=== PATIENT | male | born 1960 | race Caucasian/White ===

== ENCOUNTER 2022-07-19 22:43 | Emergency (ER) | payer MEDICARE, MEDICAID, SELFPAY ==
[2022-07-19 23:14] VITALS: BP 179/89; PULSE 91; RESP 18; TEMP 36.7; O2SAT 99; BMI 23.4
--- NOTE | 2022-07-20 00:33 | ED_ITS ---
HPI - General Adult General Time Seen by Provider: 00:10 Date Seen: 07/20/22 Chief complaint: Unspecified Complaint, Adult Stated complaint: lost feeling in rt foot, ears and nose congestion Time Seen by Provider: 07/19/22 23:16 Source: patient, RN notes reviewed and old records reviewed Mode of arrival: ambulatory Limitations: no limitations History of Present Illness HPI narrative: Mr. Soares is a very pleasant 61-year-old gentleman with unfortunate history of left leg and foot trauma in 2015, chronic neck pain with cervical fusion who comes to the emergency room for evaluation regarding both chronic nasal congestion and worsening of right foot and lower leg numbness. In regards to the lower leg numbness patient states that after his accident in 2014 in which he had multiple surgeries on his left foot he experienced a disc herniation sciatica that cause numbness on the back of his right calf into the bottom of his foot. He states that he was treated with steroids in although he got better he never got back to normal. Over the past couple days he has noticed that the numbness seems to be worse. He does not endorse tripping but states that driving he feels like maybe he does not have as much strength. He also has had increased low back pain. He cannot recall any specific injury recently. He states that he does have a history of cervical spine surgery and fusion. He notes that he did see a surgeon in regards to his low back and it was suggested that possibly fusion would be helpful but was told that it would be multiple levels and thus he wanted to avoid that. He denies loss of bowel or bladder control, any fever, the onset of any new symptoms. He states that this is simply what he experienced before. Patient also notes that he has some redness around his scar on the left foot where he had surgery within the last year. This was done by a physician at [facility]. He states that he had 2 broken bones that were r emoved and that there are some areas of the foot that cannot be operated on. He is worried that he may have an infection here. Patient notes he has also been with chronic congestion over the past 16 months. He states that he is on Sudafed in that help somewhat. He notes that he has ear pain but blames this on TMJ. He states that since he has had dentures he grinds his teeth now. Denies a sore throat. He also notes a growth in his right naris. He is due to see ENT on August 11. He states that he keeps picking at hoping it will go away. He is a chronic smoker. Related Data Previous Rx's Medication Instructions Recorded methylprednisolone 4 mg tablets in See Rx Instructions PO .COMPLEX 07/20/22 a dose pack (Medrol (Andrea)) #21 ea Allergies Allergy/AdvReac Type Severity Reaction Status Date / Time No Known Drug Allergies Allergy Verified 07/19/22 23:16 Review of Systems Status of ROS: Reports: 6 or more systems reviewed and unremarkable except as noted in History and below Const: Denies: fever or chills Eyes: Denies: change in vision ENMT: Reports: neck pain (Chronic); Denies: throat pain, difficulty swallowing or hoarseness Cardio: Reports: swelling of feet/ankles (Chronic on the left); Denies: chest pain or shortness of breath with exertion Resp: Denies: shortness of breath GI: Denies: abdominal pain, vomiting or difficulty swallowing : Reports: other (Denies loss of bowel control) Musculo: Reports: neck pain (Chronic) Neuro: Reports: numbness in extremities and weakness in extremities Exam Narrative: Exam Narrative: According to notes: Surgery in 2004 cervical fusion. 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 Very pleasant gentleman. Somewhat disheveled appearance. Eyes are clear. TMs bilaterally without erythema or fluid. Left Henning within normal limits. Right naris shows what appears to be some overgrowth on the 2nd turban it. No erythema at this time. No bleeding at this time. Rather nodular in appearance. Oral cavity with moist mucous membranes. Neck is supple. Palpation of lumbar spine shows no tenderness. There is tenderness in the right sciatic notch. Patient has some wasting of the right anterior thigh. He has decreased sensation along the posterior aspect of the lower calf. Achilles is intact. He has decreased sensation on the bottom of his foot. He is able to dorsiflex and plantar flex both at the ankle and of the great toe against resistance. He is unable to stand on his tip toes secondary to the surgery on his left foot. DTRs are 1/2+ at the knee and 1+ at the ankle on the right. Patient is observed sitting standing without difficulty. He is mentating normally. Upper extremity movement strength appears to be intact. Patient does request that I look at his left foot. He has a healed scar over the left great MTP that does not appear to be unusual. His left great toe is somewhat shiny and there is absent great nail but there is no erythema or drainage. The bottom of the foot shows no evidence of drainage open wound or erythema. Documenting provider has reviewed patient's vital signs: yes Course Vital Signs Vital signs: Initial Vital Signs Temperature 98.0 F 07/19/22 23:14 Temperature Source Temporal Artery Scan 07/19/22 23:14 Pulse Rate 91 07/19/22 23:14 Respiratory Rate 18 07/19/22 23:14 Blood Pressure 179/89 H 07/19/22 23:14 Blood Pressure Mean 119 07/19/22 23:14 Blood Pressure Position Sitting 07/19/22 23:14 Pulse Oximetry 99 07/19/22 23:14 Oxygen Delivery Method 07/19/22 23:14 Vital Signs Temperature 98.0 F 07/19/22 23:14 Pulse Rate 91 07/19/22 23:14 Respiratory Rate 18 07/19/22 23:14 Blood Pressure 179/89 H 07/19/22 23:14 Pulse Oximetry 99 07/19/22 23:14 Oxygen Delivery Method 07/19/22 23:14 Temperature 98.0 F 07/19/22 23:14 Pulse Rate 91 07/19/22 23:14 Respiratory Rate 18 07/19/22 23:14 Blood Pressure 179/89 H 07/19/22 23:14 Pulse Oximetry 99 07/19/22 23:14 Oxygen Delivery Method 07/19/22 23:14 Medical Decision Making MDM Narrative Medical decision making narrative: 1. L5/S1 radiculopathy-patient has what appears to be chronic sensation loss and some wasting of the right lower extremity musculature. At this time still maintaining dorsiflexion plantar flexion and not exhibiting any red flag symptoms. Patient is requesting steroids. I did speak about using prednisone but he notes that he is use the Medrol Dosepak in the past with success. 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 I would ask however that he follow-up with his primary provider JUN Tompkins for recheck. If he does not have improvement of his symptoms or has worsening symptoms he will likely need advanced imaging. As his foot surgery with hardware is less than a year old, I do not know if he is a candidate for MRI but defer to his primary provider. 2. Nasal growth-I have asked patient to do his best not to pick at this area as to alter the appearance. He does have ENT appointment on August 11 which I encouraged him to keep. 3. Left foot surgery-I do not note any erythema that is unusual around the surgical wounds left foot. I would continue to monitor. He does have some shiny mildly pink appearance of the left great toe. It appears that his nail has been removed. It does not appear to be infected. It is not unusually warm to the touch for exhibiting any drainage. Continue to monitor and seek medical attention if this would change. 4. Disposition-patient is discharged home. Return as needed for worsening symptoms. Medical Records Medical records reviewed: Yes I reviewed the patient's medical records Discharge Plan Discharge Clinical Impression: Radiculopathy, Chronic nasal congestion Patient Disposition: Home, Self-Care Condition: Unchanged Additional Instructions: For foot and leg numbness: start Medrol dose pack - sent to your pharmacy Tylenol as needed for discomfort while using the steroid take with food For nasal growth - do your best to avoid picking at the growth. Keep your ENT appointment Follow up with JUN Tompkins as you may need a CT or MRI of your ow back if not improving or you are getting worse. Prescriptions: New methylprednisolone [Medrol (Andrea)] 4 mg tablets,dose pack See Rx Instructions .ROUTE .COMPLEX Qty: 21 0RF Rx Instructions: orally per package directions Follow Up/Referrals: Rhett Tompkins PA-C [Primary Care Provider] - Stand Alone Forms: [employer] Info Instructions
[2022-07-20] MEDS: predniSONE 20 MG TABLET 60 MG PO (01:15)
[2022-07-20 01:20] VITALS: BP 165/78; PULSE 89; RESP 18; TEMP 36.7; O2SAT 99
== END 2022-07-20 01:20 | disposition home or self-care (01) ==
PROVIDERS: Emergency Provider Family Medicine; PCP Physician Assistant
DX: M54.17 Radiculopathy, lumbosacral region (principal); R09.81 Nasal congestion
CPT/HCPCS: 99283; J7512

== ENCOUNTER 2024-01-28 20:40 | Emergency (ER) | payer MEDICARE, SELFPAY ==
[2024-01-28 21:04] VITALS: BP 159/88; PULSE 81; RESP 16; TEMP 36.2; O2SAT 95; BMI 22.3
--- NOTE | 2024-01-28 22:01 | ED_ITS ---
HPI - General Adult General Chief complaint: Skin/Abscess/Foreign Body Stated complaint: bumps behind ears with puss, affecting eyes & nose Time Seen by Provider: 01/28/24 21:52 History of Present Illness HPI narrative: This 63-year-old male comes in reporting drainage from behind his ears and if from his nose and from his eyes. He states that this is been going on for about 3 years. He states that it seems worse recently so he comes in here for evaluation. He arrives with normal vital signs. He does not report any fevers or upper respiratory infection symptoms. Related Data Previous Rx's ?Medication ?Instructions ?Recorded methylprednisolone 4 mg tablets in See Rx Instructions PO .COMPLEX 07/20/22 a dose pack (Medrol (Andrea)) #21 ea Allergies Allergy/AdvReac Type Severity Reaction Status Date / Time naproxen Allergy Mild GI Upset Verified 07/20/22 02:10 Review of Systems Status of ROS: Reports: 10 or more systems reviewed and unremarkable except as noted in History and below Narrative: Constitutional: No fevers, no weight gain or loss. Eyes: No discharge. No vision changes. HENT: He reports nasal congestion, drainage from his eyes, and pain and drainage from behind his ears. At Cardiovascular: No chest pain, no palpitations. Respiratory: No shortness of breath, no wheezes, no cough. Gastrointestinal: No abdominal pain, no vomiting, no diarrhea. Genitourinary: No dysuria, no hematuria. Musculoskeletal: Normal range of motion. Skin: No rashes, no pruritis. Neurological: No dizziness, weakness, sensory change, speech change. Endo/Heme/Allergies: No bruising or bleeding. No polydipsia. Pysch: no suicidality, no anxiety, no insomnia. All other systems reviewed and are negative. [facility] Medical History (Updated 01/28/24 @ 22:06 by Marlo Galvan MD) Lumbar disc herniation ?M51.26 - Other intervertebral disc displacement, lumbar region (ICD-10) Tobacco use ?Z72.0 - Tobacco use (ICD-10) Spondylosis of cervical joint without myelopathy ?M47.812 - Spondylosis without myelopathy or radiculopathy, cervical region (ICD-10) Peripheral neuropathy ?G62.9 - Polyneuropathy, unspecified (ICD-10) Cervical spine pain ?M54.2 - Cervicalgia (ICD-10) Adenomatous colon polyp ?D12.6 - Benign neoplasm of colon, unspecified (ICD-10) Surgical History (Updated 07/20/22 @ 02:13 by Damian Coronado RN) History of arthrodesis ?Z98.1 - Arthrodesis status (ICD-10) History of hernia repair ?Z98.890 - Other specified postprocedural states (ICD-10) ?Z87.19 - Personal history of other diseases of the digestive system (ICD-10) Social History Smoking Status: Current every day smoker Do you use any of these nicotine containing products: None Second hand tobacco smoke exposure: Yes How often do you have a drink containing alcohol: never How often do you have six or more drinks on one occasion: Never AUDIT-C Alcohol total score: 0 Non-prescribed substance use: denies use Exam Narrative: Exam Narrative: Constitutional: Well-developed, well-nourished, no acute distress. HEENT: Normocephalic, atraumatic. Tympanic membranes appear normally. The area behind both ears also appears completely normal. There are no palpable masses or signs of abnormality. Nasal exam also shows no abnormality. His eyes are not showing any sign of discharge or conjunctivitis. Neck: Normal range of motion. Nontender. Supple. Heart: Intact distal pulses. Lungs: No chest discomfort. No wheezes, rhonchi, or rales. Abdomen: Nontender. Back: Normal range of motion. Extremities: Normal range of motion. No injury. Skin: Intact. No rash. Warm. No erythema or pallor. Neurologic: No altered sensation. No weakness. Alert and oriented. Nursing notes and vitals signs are reviewed. Const: Vital Signs, click to edit/add: Vital Signs - 24 hr 01/28/24 21:04 Temperature 97.2 F L Pulse Rate [Left P ulse Oximeter] 81 Respiratory Rate 16 Blood Pressure [Ri ght Upper Arm] 159/88 H Pulse Oximetry 95 Oxygen Delivery Me thod Room Air Course Vital Signs Vital signs: Initial Vital Signs Temperature 97.2 F L 01/28/24 21:04 Temperature Source Temporal Artery Scan 01/28/24 21:04 Pulse Rate 81 01/28/24 21:04 Pulse Rhythm Regular 01/28/24 21:04 Respiratory Rate 16 01/28/24 21:04 Blood Pressure 159/88 H 01/28/24 21:04 Blood Pressure Mean 111 H 01/28/24 21:04 Blood Pressure Position Sitting 01/28/24 21:04 Pulse Oximetry 95 01/28/24 21:04 Oxygen Delivery Method Room Air 01/28/24 21:04 Vital Signs Temperature 97.2 F L 01/28/24 21:04 Pulse Rate 81 01/28/24 21:04 Respiratory Rate 16 01/28/24 21:04 Blood Pressure 159/88 H 01/28/24 21:04 Pulse Oximetry 95 01/28/24 21:04 Oxygen Delivery Method Room Air 01/28/24 21:04 Temperature 97.2 F L 01/28/24 21:04 Pulse Rate 81 01/28/24 21:04 Respiratory Rate 16 01/28/24 21:04 Blood Pressure 159/88 H 01/28/24 21:04 Pulse Oximetry 95 01/28/24 21:04 Oxygen Delivery Method Room Air 01/28/24 21:04 Medical Decision Making MDM Narrative Medical decision making narrative: This patient states that he has had these symptoms for about 3 years and reports to me that he is been to several doctors regarding this. He is taken antihistamines and nasal sprays without relief. He also states that he has been to an ear nose and throat physician. He has complaints of drainage from behind his ears with increased tenderness, nasal congestion, and bilateral eye drainage. On exam I do not see any evidence of any abnormality. I explained that anyone will have tenderness if you press on the posterior aspect of the mandible right behind the lower portion of the ear. I encouraged him to discontinue doing this. He did receive an oral dose of dexamethasone 10 mg. I did provide a prescription for eye drops Discharge Plan Discharge Clinical Impression: Feared condition not demonstrated Patient Disposition: Home, Self-Care Condition: Stable Additional Instructions: Use [id number] medicines as needed and directed. Use eyedrops also as pr escribed. Follow up with primary physician or search engine optimization strategist for further evaluation if needed. Prescriptions: No Action methylprednisolone [Medrol (Andrea)] 4 mg tablets,dose pack See Rx Instructions .ROUTE .COMPLEX Qty: 21 0RF Rx Instructions: orally per package directions Follow Up/Referrals: Rhett Tompkins PA-C [Primary Care Provider] - Stand Alone Forms: [employer] Info Instructions
[2024-01-28] MEDS: dexAMETHasone 10 MG/ML inj PO (22:05)
--- OUTSIDE RECORDS SUMMARY | 2024-01-28 22:16 | XMS_ITS | Continuity of Care Document ---
Author Organization [facility] Address [address] [place] [address] Phone Care Team Providers Care Enterprise Systems Manager Name Role Phone Jama APPIAH, Billy Unavailable Unavailable Advance Directives Directive Yes / No Effective Date File Name No Information Encounters Encounter Description Practice Location Reason(s) For Visit Diagnoses Date Provider Providers Copied on Encounter [facility], [address], [place], [place], [id number], [place] tel:[phone] [facility] No Information Jama Cervantes. [facility], [address], [address], [id number], [place]. tel:[phone] Family History Family Member Type Diagnosis Age At Onset No Information Payers Payer name Insurance type Covered republican ID Authoriza tion(s) No Information Social History Type Description Quantity Date Captured [...]
--- OUTSIDE RECORDS SUMMARY | 2024-01-28 22:16 | XMS_ITS | Clinical Summary ---
Author Organization [facility] Address [place], [place] [address] Care Team Providers Care Technical Project Manager Name Role Phone Nonstaff, Doctor Unavailable Unavailable Rhett Tompkins Primary Care Provider [phone] Allergies Active Allergy Reactions Criticality Noted Date Comments Naproxen GI Upset 02/18/2015 Patient reports vomiting blood Medications Medication Sig Dispensed Refills Start Date End Date Status ibuprofen (ADVIL; MOTRIN) 600 mg tabletIndications:T MJ syndrome Take 1 Tablet (600 mg) by mouth every 6 hours if needed for Pain. Maximum of 3200 mg in 24 hours. 30 Tablet 06/08/2023 Active famotidine (PEPCID) 20 mg tabletIndications:F ood impaction of esophagus, initial encounter Take 1 Tablet (20 mg) by mouth two times daily. 30 Tablet 10/24/2023 Active sucralfate (CARAFATE) 1 gram tabletIndications:F ood impaction of esophagus, initial encounter Take 1 Tablet (1 g) by mouth four times daily before meals and at bedtime. 60 Tablet 10/24/2023 Active amoxicillin-clavula aida 875-125 mg tablet (AUGMENTIN)Indicati ons:Dental abscess Take 1 Tablet by mouth two times daily with meals for 7 days. 14 Tablet 01/07/2024 01/14/2024 Active Problems Problem Noted Date Diagnosed Date Sensorineural hearing loss, bilateral 08/11/2022 Chronic neck pain 06/11/2015 Overview: S/P Surgery 2004. 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 Ruiz ( [place]) around ??2009?? Chronic, continued pain. Cymbalta no benefit at 30mg. June 2015: Referral to Spinal Surgeon for consult Lumbar disc herniation 05/08/2015 Overview: ~ April 2015:L5-S1 TF epidural steroid injection by Dr. Thomason with no benefit. June 2015: Referral to Spinal Surgeon for consult Adenomatous colon polyp 04/09/2015 Overview: Colonoscopy 04/2015 polyp repeat in 5 years Tobacco use 12/24/2014 Encounters Date Type Department Care Team Description 01/07/2024 10:45 PM CDT - 01/07/2024 11:23 PM CDT Emergency [address] [address] Elsa Canada MD Dental abscess (Primary Dx) Discharge Disposition: Home Self Care 01/07/2024 Travel from Last 3 Months Social History Tobacco Use Types Packs/Day Years Used Date Smoking Tobacco: Every Day Cigarettes Smokeless Tobacco: Never Tobacco Cessation:Ready to Q uit: No; Counseling Given: Yes Alcohol Use Standard Drinks/Week Comments No 0 (1 standard drink = 0.6 oz pur e alcohol) Social Connections Answer Date Recorded Frequency of Communication with Friends and Fami ly Not on file 12/05/2023 Financial Resource Strain Answer Date R ecorded Difficulty of Paying Living Expenses 3 12/03/2022 Difficulty of Paying Living Expenses Not on file 12/03/2022 Food Insecurity Answer Date Recorded Worried About Running Out of Food in the Last Ye ar 1 12/03/2022 Transportation Needs Answer Date Record ed Lack of Transportation (Medical) 1 12/03/2022 Housing Stability Answer Date Recorded Unable to Pay for Housing in the Last Year 1 12/03/2022 Sex and Gender Information Value Date Recorded Sex Assigned at Not on file Gender Identity Not on file Sexual Orientation Not on file Obstetrics History Last Filed Vital Signs Vital Sign Reading Time Taken Comments Blood Pressure 125/79 01/07/2024 11:23 PM CDT Pulse 76 01/07/2024 11:23 PM CDT Temperature 36.5 ??C (97.7 ??F) 01/07/2024 10:56 PM C DT Respiratory Rate 18 01/07/2024 11:23 PM CDT Oxygen Saturation 96% 01/07/2024 11:23 PM CDT Inhaled Oxygen Concentration - - Weight 76 kg (167 lb 9.6 oz) 01/07/2024 10:56 PM CDT Height 181.6 cm (5' 11.5) 01/07/2024 10:56 PM C DT Body Mass Index 23.05 01/07/2024 10:56 PM CDT Plan of Treatment Health Maintenance Due Date Last Done Comments Pneumococcal series for age 6-64 (1 of 2 - PCV) 1965 Tdap 1970 Depression screening for age 12+ 1971 HIV for age 15-65 1974 BMI (ht and wt on same day) for age 18+ 1977 Hepatitis C screening for age 18-79 1977 Tetanus booster 1979 Lipids for age 45-75 2004 Zoster (shingles) series for age 50+ (1 of 2) 09/11/19 10 Colonoscopy through age 75 04/08/2020 04/08/2015 COVID-19 vaccine series (2022- season) 3 Influenza for age 50-64 05/06/2024 Medical Devices Implanted Type Area Concrete Pump Operator Device Identifier Shelf Expiration Date Model / Serial / Lot Mesh Ventral 3x6in Bard Soft - [id number] Implanted:Qty: 2 on 12/14/2017 by Victorino Sanders MD at [facility] Bilateral: Inguinal [employer] 09/01/2022 [id number] / / [id number] Description:BARD Soft Mesh, Bilateral Inguinal Advance Directives * Full Code (Latest Code Status on File) Date Activated Date Inactivated Comments 10/27/2023 12:31 PM 10/27/2023 7:12 PM Question Answer Comments Code Status Discussion: Reviewed Preferences * Full Code Date Activated Date Inactivated Comments 12/14/2017 7:02 AM 12/14/2017 3:36 PM Care Teams Technical Project Manager Relationship Specialty Start Date End Date Rhett Tompkins PA [address] [facility] [place] [place] [phone] PCP - General Physician Configuration Management Advisor 06/08/23 Nonstaff, Doctor NON STAFF DOCTOR 12/19/13
--- OUTSIDE RECORDS SUMMARY | 2024-01-28 22:16 | XMS_ITS | Encounter Summary ---
Author Organization [facility] Address [address] [place] [address] Care Team Providers Care Vice Chair Name Role Phone Elsewhere, Pcp Primary Care Provider Unavailabl e Reason for Visit * Reason Onset Date Comments ENT SURGERY DATE 10/04/2023 Encounter Details Date Type Department Care Team (Latest Contact Info) Description 10/04/2023 Clinical Communication Department of Family Medicine, [facility], in [place], [place] [address] [place] [phone] Rhett Tompkins, Claudia-Ole., P.A. [address] [place] [phone] ENT SURGERY DATE Social History Tobacco Use Types Packs/Day Years Used Date Smoking Tobacco: Every Day Cigarettes Smokeless Tobacco: Never Alcohol Use Standard Drinks/Week Comments No 0 (1 standard drink = 0.6 oz pur e alcohol) PHQ-2 Answer Date Recorded PHQ-2 Score 0 10/17/2023 Nutrition Answer Date Recorded Nutrition: EVOO Fat Source Unknown 11/03 Nutrition: Servings of Fruits/Vegetables per Day Not on file 11/03/2020 Dental Answer Date Recorded Dental: Regular Dentist Unknown 11/04/19 21 Sex and Gender Information Value Date Recorded Sex Assigned at Not on file Gender Identity Male 04/28/2018 9:55 AM CDT Sexual Orientation Straight 04/28/2018 9: 55 AM CDT documented as of this encounter Plan of Treatment Not on file documented as of this encounter Visit Diagnoses Not on filedocumented in this encounter Additional Health Concerns Assessment Noted Time PHQ-9 Depression Total Score: 4 09/19/19 18 11:05 AM RADIOLOGY SUPERVISOR documented as of this encounter Care Teams Vice Chair Relationship Specialty Start Date End Date Elsewhere, Pcp PCP - General 12/04/21 documented as of this encounter
--- OUTSIDE RECORDS SUMMARY | 2024-01-28 22:16 | XMS_ITS | Referral Summary ---
Author Organization [facility] Address [address] [place] [address] Care Team Providers Care Admission Nurse Coordinator Name Role Phone Elsewhere, Pcp Primary Care Provider Unavailabl e Source Comments Patient records contain information from all sites at [facility]. For routine questions regarding patient records, call [phone] during business hours, M-F 8:00 AM - 5:00 PM Central Time. Record requests for emergency care only can be directed to [phone] at any time.[facility] Encounters Date Type Department Care Team Description 01/13/2024 Clinical Communication Department of Family Medicine, [facility], in [address] [phone] Rhett Tompkins P.A.Anibal., P.A. Med Question 11/14/2023 3:00 PM CDT Office Visit Department of Otorhinolaryngology in [address] [phone] Rhona Montague, P.A.-C. Follow Up Examination Status Post Surgery (Primary Dx); Deviation Nasal Septal; Congestion Nasal from Last 3 Months Allergies Active Allergy Reactions Criticality Noted Date Comments Naproxen Other (see comments) 06/24/2015 Medications Medication Sig Dispensed Refills Start Date End Date Status terbinafine (LamISIL) 250 mg tablet Take 1 tablet (250 mg total) by mouth daily. 84 tablet 06/07/2023 Active ibuprofen (MOTRIN) 600 mg tablet Take 600 mg by mouth every 6 (six) hours as needed. 06/08/2023 Active sucralfate (CARAFATE) 1 gram tablet Take 1 g by mouth. 10/24/2023 Active famotidine (PEPCID) 20 mg tablet Take 1 tablet by mouth 2 (two) times a day. 10/24/2023 Active lisinopril-hydroCH LOROthiazide (PRINZIDE,ZESTORET IC) 10-12.5 mg per tablet Take 1 tablet by mouth daily. 90 tablet 3 10/26/2023 10/25/2024 Active azelastine (ASTELIN) 137 mcg/spray (0.1 %) nasal spray Administer 2 sprays into each nostril 2 (two) times a day. 10/29/2023 Active amoxicillin-pot clavulanate (AUGMENTIN) 875-125 mg per tablet Take 1 tablet by mouth every 12 (twelve) hours for 10 days. 20 tablet 01/13/2024 01/23/2024 Active Problems Problem Noted Date Diagnosed Date Pain Cervical 06/11/2015 Overview: Overview: S/P Surgery 2004. 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 Chronic, continued pain. Cymbalta no benefit at 30mg. June 2015: Referral to Spinal Surgeon for consult Other Intervertebral Disc Displacement Lumbar Re gion 05/08/2015 Overview: Overview: ~ April 2015:L5-S1 TF epidural steroid injection by Dr. Thomason with no benefit. June 2015: Referral to Spinal Surgeon for consult Polyp Colon Adenomatous 04/09/2015 Overview: Overview: Colonoscopy 04/2015 polyp repeat in 5 years Tobacco Use 12/24/2014 Spondylosis Cervical Without Myelopathy 09/26/19 08 Neuropathy Peripheral 12/01/2006 Immunizations Name Administration Dates Next Due DTaP (Infanrix, Tripedia) 10/23/2009 Tdap 10/17/2023,10/23/2009 Social History Tobacco Use Types Packs/Day Years Used Date Smoking Tobacco: Every Day Cigarettes Smokeless Tobacco: Never Tobacco Cessation:Ready to Q uit: Not Asked; Counseling Given: Not Answered Alcohol Use Standard Drinks/Week Comments No 0 (1 standard drink = 0.6 oz pur e alcohol) PHQ-2 Answer Date Recorded PHQ-2 Score 0 10/17/2023 Nutrition Answer Date Recorded Nutrition: EVOO Fat Source Unknown 11/03 Nutrition: Servings of Fruits/Vegetables per Day Not on file 11/03/2020 Dental Answer Date Recorded Dental: Regular Dentist Unknown 11/04/19 Sex and Gender Information Value Date Recorded Sex Assigned at Not on file Gender Identity Male 04/28/2018 9:55 AM CDT Sexual Orientation Straight 04/28/2018 9: 55 AM CDT Last Filed Vital Signs Vital Sign Reading Time Taken Comments Blood Pressure 148/92 10/26/2023 11:28 AM FAMILY CASEWORKER Pulse 80 10/26/2023 11:28 AM FAMILY CASEWORKER Temperature 35.6 ??C (96.1 ??F) 10/17/2023 10:[address] Respiratory Rate 16 10/17/2023 10:45 AM FAMILY CASEWORKER Oxygen Saturation 97% 10/17/2023 10:45 AM FAMILY CASEWORKER Inhaled Oxygen Concentration - - Weight 76.6 kg (168 lb 14 oz) 10/17/2023 10:45 A M FAMILY CASEWORKER Height 179 cm (5' 10.47) 10/17/2023 10:45 AM CS T Body Mass Index 23.91 10/17/2023 10:45 AM FAMILY CASEWORKER Plan of Treatment Not on file Procedures Procedure Name Priority Date/Time Associated Diagnosis Comments LIPID PANEL, S Routine 10/17/2023 11:55 AM FAMILY CASEWORKER Encounter For Screening For Cardiovascular Disorders COMPREHENSIVE METABOLIC PANEL, S/P Routine 10/17/2023 11:55 AM FAMILY CASEWORKER Onychomycosis COLONOSCOPY Routine 04/08/2015 from Last 3 Months or Most Recently Relevant to Health Maintenance Results * Lipid Panel (10/17/2023 11:55 AM FAMILY CASEWORKER) Triglycerides 71 mg/dL 10/17/2023 2:19 PM FAMILY CASEWORKER OWAT Comment: ----REFERENCE VALUE---- Normal: <150 mg/dL Borderline High: 150-199 mg/dL High: 200-499 mg/dL Very High: > or =500 mg/dL Cholesterol, Total 155 mg/dL 2023 2:19 PM FAMILY CASEWORKER OWAT Comment: ----REFERENCE VALUE---- Desirable: < 200 mg/dL Borderline High: 200 - 239 mg/dL High: > or = 240 mg/dL Cholesterol, LDL, Calculated 81 mg/dL 10/17/2023 2:19 PM FAMILY CASEWORKER OWAT Comment: ----REFERENCE VALUE---- Desirable: <100 mg/dL Above Desirable: 100-129 mg/dL Borderline High: 130-159 mg/dL High: 160-189 mg/dL Very High: >=190 mg/dL ----ADDITIONAL INFORMATION---- LDL cholesterol calculated using the Borrero/NIH equation. Cholesterol, HDL 60 >=40 mg/dL 10/17/19 2:19 PM FAMILY CASEWORKER OWAT Cholesterol, Non-HDL, Calculated 95 mg/dL 10/17/2023 2:19 PM FAMILY CASEWORKER OWAT Comment: ----REFERENCE VALUE---- Desirable: <130 mg/dL Above Desirable: 130-159 mg/dL Borderline High: 160-189 mg/dL High: 190-219 mg/dL Very High: > or =220 mg/dL Fasting (8 HR or more) Yes 10/17/2023 1:32 PM FAMILY CASEWORKER OWAT Blood (Blood, Venous) 10/17/2023 11:55 AM FAMILY CASEWORKER 10/17/2023 1:32 PM FAMILY CASEWORKER Rhett Tompkins P.A.-C., P.A. LAB BLOO D ADD-ON [facility] [address] [place] [address], [facility] OWAT [facility] in [place] [address] [place] [address] * Comprehensive Metabolic Panel (10/17/2023 11:55 AM FAMILY CASEWORKER) Potassium, P 4.4 3.6 - 5.2 mmol/L 10/17/2023 2:19 PM FAMILY CASEWORKER OWAT Sodium, P 142 135 - 145 mmol/L 10/17/2023 2:19 PM FAMILY CASEWORKER OWAT Chloride, P 104 98 - 107 mmol/L 10/17/2023 2:19 PM FAMILY CASEWORKER OWAT Bicarbonate, P 28 22 - 29 mmol/L 10/17/2023 2:19 PM FAMILY CASEWORKER OWAT Anion Gap, P 10 7 - 15 10/17/2023 2:19 PM FAMILY CASEWORKER OWAT BUN (Blood Urea Nitrogen), P 17 8 - 24 mg/dL 10/17/2023 2:19 PM FAMILY CASEWORKER OWAT Creatinine 0.76 0.74 - 1.35 mg/dL 10/17/2023 2:19 PM FAMILY CASEWORKER OWAT Estimated GFR (eGFR) >90 >=60 mL/min/BS A 10/17/2023 2:19 PM FAMILY CASEWORKER OWAT Comment: Estimated GFR calculated using the 2020 CKD_EPI creatinine equation. Calcium, Total, P 9.5 8.8 - 10.2 mg/dL 10/17/2023 2:19 PM FAMILY CASEWORKER OWAT Glucose, P 120 70 - 140 mg/dL 10/17/2023 2:19 PM FAMILY CASEWORKER OWAT Protein, Total, P 7.5 6.3 - 7.9 g/dL 10/17/2023 2:19 PM FAMILY CASEWORKER OWAT Albumin, P 4.5 3.5 - 5.0 g/dL 10/17/2023 2:19 PM FAMILY CASEWORKER OWAT Aspartate Aminotransferase (AST), P 31 8 - 48 U/L 10/17/2023 2:19 PM FAMILY CASEWORKER OWAT Alkaline Phosphatase, P 77 40 - 129 U/L 10/17/2023 2:19 PM FAMILY CASEWORKER OWAT Alanine Aminotransferase (ALT), P 21 7 - 55 U/L 10/17/2023 2:19 PM FAMILY CASEWORKER OWAT Bilirubin, Total, P 0.5 0.0 - 1.2 mg/dL 10/17/2023 2:19 PM FAMILY CASEWORKER OWAT Blood (Blood, Venous) 10/17/2023 11:55 AM FAMILY CASEWORKER 10/17/2023 1:32 PM FAMILY CASEWORKER Marlyn Cintron P.A.-C. LAB BLOOD ADD-ON [facility] [address] [place] [address], [place] OWAT [facility] in [place] [address] [place] [address] * Colonoscopy (04/08/2015) EXT Colonoscopy Abnormal - See Scanned Report for Details Normal - See Scanned Report for Details, HIMS - Report Received and Scanned Comment:see care everywhere for result details Historical Provider GI PROCEDURE ORDERAB LES from Last 3 Months or Most Recently Relevant to Health Maintenance Care Teams Admission Nurse Coordinator Relationship Specialty Start Date End Date Elsewhere, Pcp PCP - General 12/04/21
--- OUTSIDE RECORDS SUMMARY | 2024-01-28 22:16 | XMS_ITS ---
Author Organization [facility] Address [address] [place] [address] Care Team Providers Care Welcome Wagon Hostess Name Role Phone Unavailable Unavailable Unavailable Surgery Details Not on file Complications Check Surgery Details section. Procedure Estimated Blood Loss Check Surgery Details section. Procedure Findings Check Surgery Details section. Procedure Specimens Taken Check Surgery Details section.
--- OUTSIDE RECORDS SUMMARY | 2024-01-28 22:16 | XMS_ITS | Clinical Summary ---
Author Organization [facility] Address [address] [place] [address] Care Team Providers Care Cream Dumper Name Role Phone Elsewhere, Pcp Primary Care Provider Unavailabl e Source Comments Patient records contain information from all sites at [facility]. For routine questions regarding patient records, call [phone] during business hours, M-F 8:00 AM - 5:00 PM Central Time. 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 Chronic, continued pain. Cymbalta no [...] Without Myelopathy 09/26/19 08 Neuropathy Peripheral 12/01/2006 Encounters Date Type Department Care Team Description 01/13/2024 Clinical Communication Department of Family Medicine, [facility], in [address] [phone] Rhett Tompkins PJessie.-Ole., P.A. Med Question 11/14/2023 3:00 PM CDT Office Visit Department of Otorhinolaryngology [address] [phone] Rhona Montague, P.A.-C. Follow Up Examination Status Post Surgery (Primary Dx); Deviation Nasal Septal; Congestion Nasal from Last 3 Months Immunizations Name Administration Dates Next Due DTaP [...] Comments Blood Pressure 148/92 10/26/2023 11:28 AM VISUAL MERCHANDISING DIRECTOR Pulse 80 10/26/2023 11:28 AM VISUAL MERCHANDISING DIRECTOR Temperature 35.6 ??C (96.1 ??F) 10/17/2023 10:[address] Respiratory Rate 16 10/17/2023 10:45 AM VISUAL MERCHANDISING DIRECTOR Oxygen Saturation 97% 10/17/2023 10:45 AM VISUAL MERCHANDISING DIRECTOR Inhaled Oxygen Concentration - - Weight 76.6 kg (168 lb 14 oz) 10/17/2023 10:45 A M VISUAL MERCHANDISING DIRECTOR Height 179 cm (5' 10.47) 10/17/2023 10:45 AM CS T Body Mass Index 23.91 10/17/2023 10:45 AM VISUAL MERCHANDISING DIRECTOR Plan of Treatment Health Maintenance Due Date Last Done Comments CT Colonography 1959 Cologuard 1959 HIV Screening 1959 Hepatitis C Screening 1959 Tobacco Cessation counseling 1959 Pneumococcal vaccine (0-64 y ears) (1 of 2 - PCV) 1965 Zoster Vaccines (1 of 2) 2009 Colonoscopy 04/08/2020 04/08/2015, 09/2014, 02/17/2015 Colorectal Cancer Surveillance 04/08/2020 COVID-19 Vaccine (1 - 2022-2 4 season) 2023 Influenza Vaccine (#1) 2023 Creatinine Level (Kidney Fun ction Test) 10/17/2024 10/17/2023, 06/06/2023, 05/02/2023, Additional history exists Potassium Level 10/17/2024 10/17/2023, 10/2022, 05/02/2023, Additional history exists Sodium Level 10/17/2024 10/17/2023, 10/2022, 05/02/2023, Additional history exists Fasting Glucose for Diabetes Screening 10/17/2026 10/17/2023, 06/06/2023, 05/02/2023, Additional history exists Lipid (Cholesterol) Screening 10/17/2028, 09/19/2017, 06/10/2015 DTaP,Tdap,and Td Vaccines (4 - Td or Tdap) 10/17/2033 10/17/2023, 10/23/2009, 10/23/2009 Depression Screening (Annual PHQ-2) Completed 10/17/2023, 10/17/2023 Procedures Procedure Name Priority Date/Time Associated Diagnosis Comments LIPID PANEL, S Routine 10/17/2023 11:55 AM VISUAL MERCHANDISING DIRECTOR Encounter For Screening For Cardiovascular Disorders COMPREHENSIVE METABOLIC PANEL, S/P Routine 10/17/2023 11:55 AM VISUAL MERCHANDISING DIRECTOR Onychomycosis COLONOSCOPY Routine 04/08/2015 from Last 3 Months or Most Recently Relevant to Health Maintenance Results * Lipid Panel (10/17/2023 11:55 AM VISUAL MERCHANDISING DIRECTOR) Triglycerides 71 mg/dL 10/17/2023 2:19 PM VISUAL MERCHANDISING DIRECTOR OWAT Comment: ----REFERENCE VALUE---- Normal: <150 mg/dL Borderline High: 150-199 mg/dL High: 200-499 mg/dL Very High: > or =500 mg/dL Cholesterol, Total 155 mg/dL 2023 2:19 PM VISUAL MERCHANDISING DIRECTOR OWAT Comment: ----REFERENCE VALUE---- Desirable: < 200 mg/dL Borderline High: 200 - 239 mg/dL High: > or = 240 mg/dL Cholesterol, LDL, Calculated 81 mg/dL 10/17/2023 2:19 PM VISUAL MERCHANDISING DIRECTOR OWAT Comment: ----REFERENCE VALUE---- Desirable: <100 mg/dL Above Desirable: 100-129 mg/dL Borderline High: 130-159 mg/dL High: 160-189 mg/dL Very High: >=190 mg/dL ----ADDITIONAL INFORMATION---- LDL cholesterol calculated using the Borrero/NIH equation. Cholesterol, HDL 60 >=40 mg/dL 10/17/19 2:19 PM VISUAL MERCHANDISING DIRECTOR OWAT Cholesterol, Non-HDL, Calculated 95 mg/dL 10/17/2023 2:19 PM VISUAL MERCHANDISING DIRECTOR OWAT Comment: ----REFERENCE VALUE---- Desirable: <130 mg/dL Above Desirable: 130-159 mg/dL Borderline High: 160-189 mg/dL High: 190-219 mg/dL Very High: > or =220 mg/dL Fasting (8 HR or more) Yes 10/17/2023 1:32 PM VISUAL MERCHANDISING DIRECTOR OWAT Blood (Blood, Venous) 10/17/2023 11:55 AM VISUAL MERCHANDISING DIRECTOR 10/17/2023 1:32 PM VISUAL MERCHANDISING DIRECTOR Rhett Tompkins P.A.-C., P.A. LAB BLOO D ADD-ON [facility] [address] [place] [address], [facility] [place] [address] [place] [address] * Comprehensive Metabolic Panel (10/17/2023 11:55 AM VISUAL MERCHANDISING DIRECTOR) Potassium, P 4.4 3.6 - 5.2 mmol/L 10/17/2023 2:19 PM VISUAL MERCHANDISING DIRECTOR OWAT Sodium, P 142 135 - 145 mmol/L 10/17/2023 2:19 PM VISUAL MERCHANDISING DIRECTOR OWAT Chloride, P 104 98 - 107 mmol/L 10/17/2023 2:19 PM VISUAL MERCHANDISING DIRECTOR OWAT Bicarbonate, P 28 22 - 29 mmol/L 10/17/2023 2:19 PM VISUAL MERCHANDISING DIRECTOR OWAT Anion Gap, P 10 7 - 15 10/17/2023 2:19 PM VISUAL MERCHANDISING DIRECTOR OWAT BUN (Blood Urea Nitrogen), P 17 8 - 24 mg/dL 10/17/2023 2:19 PM VISUAL MERCHANDISING DIRECTOR OWAT Creatinine 0.76 0.74 - 1.35 mg/dL 10/17/2023 2:19 PM VISUAL MERCHANDISING DIRECTOR OWAT Estimated GFR (eGFR) >90 >=60 mL/min/BS A 10/17/2023 2:19 PM VISUAL MERCHANDISING DIRECTOR OWAT Comment: Estimated GFR calculated using the 2020 CKD_EPI creatinine equation. Calcium, Total, P 9.5 8.8 - 10.2 mg/dL 10/17/2023 2:19 PM VISUAL MERCHANDISING DIRECTOR OWAT Glucose, P 120 70 - 140 mg/dL 10/17/2023 2:19 PM VISUAL MERCHANDISING DIRECTOR OWAT Protein, Total, P 7.5 6.3 - 7.9 g/dL 10/17/2023 2:19 PM VISUAL MERCHANDISING DIRECTOR OWAT Albumin, P 4.5 3.5 - 5.0 g/dL 10/17/2023 2:19 PM VISUAL MERCHANDISING DIRECTOR OWAT Aspartate Aminotransferase (AST), P 31 8 - 48 U/L 10/17/2023 2:19 PM VISUAL MERCHANDISING DIRECTOR OWAT Alkaline Phosphatase, P 77 40 - 129 U/L 10/17/2023 2:19 PM VISUAL MERCHANDISING DIRECTOR OWAT Alanine Aminotransferase (ALT), P 21 7 - 55 U/L 10/17/2023 2:19 PM VISUAL MERCHANDISING DIRECTOR OWAT Bilirubin, Total, P 0.5 0.0 - 1.2 mg/dL 10/17/2023 2:19 PM VISUAL MERCHANDISING DIRECTOR OWAT Blood (Blood, Venous) 10/17/2023 11:55 AM VISUAL MERCHANDISING DIRECTOR 10/17/2023 1:32 PM VISUAL MERCHANDISING DIRECTOR Marlyn Cintron P.A.-C. LAB BLOOD ADD-ON [facility] [address] [place] [address], [facility] [place] [address] [place] [address] * Colonoscopy (04/08/2015) EXT Colonoscopy Abnormal - See Scanned Report for Details Normal - See Scanned Report for Details, HIMS - Report Received and Scanned Comment:see care everywhere for result details Historical Provider GI PROCEDURE ORDERAB LES from Last 3 Months or Most Recently Relevant to Health Maintenance Care Teams Cream Dumper Relationship Specialty Start Date End Date Elsewhere, Pcp PCP - General 12/04/21
--- OUTSIDE RECORDS SUMMARY | 2024-01-28 22:16 | XMS_ITS | Encounter Summary ---
Author Organization [facility] Address [address] [place] [address] Care Team Providers Care Laborer Marine Terminal Name Role Phone Elsewhere, Pcp Primary Care Provider Unavailabl e Reason for Referral * Outpatient (Routine) - Authorized Specialty Diagnoses / Procedures Referred By Humberto hardin Referred To Contact Rhett Tompkins P.A.-C., P.A. [address] [place] [phone] [facility] Region Referral ID Status Reason Start Date Expiration Date V isits Requested Visits Authorized [id number] Authorized 10/27/2023 04/27/2025 1 1 ENCE CUSTODIAN * Outpatient (Routine) - Authorized Specialty Diagnoses / Procedures Referred By Humberto hardin Referred To Contact Rhett Tompkins P.A.-C., P.A. [address] [place] [phone] [facility] Region Referral ID Status Reason Start Date Expiration Date V isits Requested Visits Authorized [id number] Authorized 10/26/2023 04/26/2025 1 1 ENCE CUSTODIAN Reason for Visit * Reason Onset Date Comments Blood Pressure 10/26/2023 Encounter Details Date Type Department Care Team (Latest Contact Info) Description 10/26/2023 Clinical Communication Department of Family Medicine, [facility], in [place], [place] [address] [place] [phone] Rhett Tompkins P.A.-C., P.A. [address] [place] [phone] Blood Pressure Social History Tobacco Use Types Packs/Day Years [...] AM CDT documented as of this encounter Miscellaneous Notes * Telephone Encounter - Christie Mast LNerisP.NNeris - 10/27/2023 10:57 AM EVIDENCE CUSTODIAN SUBJECTIVE CHIEF COMPLAINT / REASON FOR CALL Blood Pressure Information Discussed Called and informed patient of Rhett Tompkins's recommendations as listed below. PLAN Disposition/Recommendation: Start Lisinopril Hydrochlorothiazide and have blood pressure rechecked in two weeks Information/Education: patient/caller able to teach back Caller agreeable to plan of care: yes The following references were used: provider JUN Méndez ENCE CUSTODIAN * Telephone Encounter - Tejal Stapleton L.P.N. - 10/26/2023 11:30 AM EVIDENCE CUSTODIAN Reggie is seen today for a blood pressure visit as ordered by Rhett Tompkins PA-C. Visit was conducted in clinic. Today's blood pressure reading and prior two readings: BP Readings from Last 3 Encounters: 10/26/23 (!) 148/92 10/17/23 (!) 14305/02/23 144/85 . Medication list was reconciled, and patient is not taking a medication to alter their blood pressure. The patient reports no acute symptoms of hypertension Based on today's readings: The provider will be notified of today's visit and the patient was dismissed ENCE CUSTODIAN documented in this encounter Plan of Treatment Scheduled Referrals Name Type Priority Associated Diagnoses Orde r Schedule Primary Care nurse visit (clinic) - [facility]; BP check; BP check only (REHAB DIRECTOR) Outpatient Referral Routine Expected: 11/09/2023 (Approximate), Expires: 01/23/2025 Primary Care nurse visit (clinic) - [facility]; BP check; BP check only (REHAB DIRECTOR) Outpatient Referral Routine Expected: 11/10/2023 (Approximate), Expires: 01/24/2025 documented as of this encounter Visit Diagnoses Not on filedocumented in this encounter Additional Health Concerns Assessment Noted Time PHQ-9 Depression Total Score: 4 09/19/19 18 11:05 AM EVIDENCE CUSTODIAN documented as of this encounter Care Teams Laborer Marine Terminal Relationship Specialty Start Date End Date Elsewhere, Pcp PCP - General 12/04/21 documented as of this encounter
--- OUTSIDE RECORDS SUMMARY | 2024-01-28 22:16 | XMS_ITS | Continuity of Care Document ---
Author Organization [facility] Address [address] [facility] [address] [place] [address] Phone Care Team Providers Care Powder Core Tester Name Role Phone Mariusz SHETHMitali Unavailable Unavailable Medications Medication Instructions Dosage [...] Cons New/estab Mod-hi 60 [facility], [address] [facility] [address], [place], [place], [id number], [place] tel:[phone] [facility] No Information Mariusz Mitali. [address] [facility] [facility] [address], [address], [place], [address], [place]. tel:[phone] Referring Provider: Abraham Ruiz DO, [address] [facility] [address] [facility], [place], [address]. tel:[phone] Family History Family Member Type Diagnosis Age At Onset No Information Payers Payer name Insurance type Covered constitution party ID Nahid cervantess) Joseph WASHBURN [id number] Social History Type Description Quantity Date Captured [...]
--- OUTSIDE RECORDS SUMMARY | 2024-01-28 22:16 | XMS_ITS | Encounter Summary ---
Author Organization [facility] Address [address] [place] [address] Care Team Providers Care Senior Site Manager Name Role Phone Elsewhere, Pcp Primary Care Provider Unavailabl e Reason for Visit * Reason Comments Nurse Visit * Outpatient (Routine) - Authorized Specialty Diagnoses / Procedures Referred By Humberto t Referred To Contact Rhett Tompkins P.A.-C., P.A. [address] [place] [address] [facility] Referral ID Status Reason Start Date Expiration Date V isits Requested Visits Authorized [id number] Authorized 10/17/2023 04/17/2025 1 1 Encounter Details Date Type Department Care Team (Late st Contact Info) Description 10/26/2023 11:15 AM COMPUTER SCIENCE PROFESSOR Nurse Only Department of Family Medicine, [facility], in [place], [place] [address] [place] [address] Rhett Tompkins P.A.-C., P.A. [address] [place] [address] Tejal Stapleton, L.P.N. [address] [place] [phone] Nurse Visit Social History Tobacco Use Types Packs/Day Years [...] AM CDT documented as of this encounter Last Filed Vital Signs Vital Sign Reading Time Taken Comments Blood Pressure 148/92 10/26/2023 11:28 AM COMPUTER SCIENCE PROFESSOR Pulse 80 10/26/2023 11:28 AM COMPUTER SCIENCE PROFESSOR Temperature - - Respiratory Rate - - Oxygen Saturation - - Inhaled Oxygen Concentration - - Weight - - Height - - Body Mass Index - - documented in this encounter Progress Notes * Tejal Stapleton L.P.N. - 10/26/2023 11:15 AM CST Reggie is seen today for a blood pressure visit as ordered by Rhett Tompkins PA-C. Visit was conducted in clinic. Today's blood pressure reading and prior two readings: BP Readings from Last 3 Encounters: 10/26/23 (!) 148/92 10/17/23 (!) 143/91 05/02/23 144/85 . Medication list was reconciled, and patient is not taking a medication to alter their blood pressure. The patient reports no acute symptoms of hypertension Based on today's readings: The provider will be notified of today's visit and the patient was dismissed UTER SCIENCE PROFESSOR documented in this encounter Plan of Treatment Not on file documented as of this encounter Visit Diagnoses Diagnosis Elevated Blood Pressure- Primary documented in this encounter Additional Health Concerns Assessment Noted Time PHQ-9 Depression Total Score: 4 09/19/19 18 11:05 AM COMPUTER SCIENCE PROFESSOR documented as of this encounter Care Teams Senior Site Manager Relationship Specialty Start Date End Date Elsewhere, Pcp PCP - General 12/04/21 documented as of this encounter
--- OUTSIDE RECORDS SUMMARY | 2024-01-28 22:16 | XMS_ITS | Encounter Summary ---
Author Organization [facility] Address [address] [place] [address] Care Team Providers Care Antisqueak Chalker Name Role Phone Elsewhere, Pcp Primary Care Provider Unavailabl e Reason for Visit * Reason Comments Post-op * Outpatient (Routine) - Closed Specialty Diagnoses / Procedures Referred By Humberto hardin Referred To Contact Otorhinolaryngology Rhona Montague P.A.-C. [address] [address] [facility] Region Referral ID Status Reason Start Date Expiration Date Visits Re quested Visits Authorized [id number] Closed 10/04/2023 04/04/2025 1 1 Encounter Details Date Type Department Care Team (Latest Contact Info) Description 11/14/2023 3:00 PM CDT Office Visit Department of Otorhinolaryngology in [address] [address] Rhona Montague P.A.-C. [address] [address] Follow Up Examination Status Post Surgery (Primary Dx); Deviation Nasal Septal; Congestion Nasal Social History Tobacco Use Types Packs/Day Years [...] AM CDT documented as of this encounter Progress Notes * Rhona Montague P.A.-C. - 11/14/2023 3:00 PM CDT SUBJECTIVE CHIEF COMPLAINT/REASON FOR VISIT Postop check HISTORY OF PRESENT ILLNESS Reggie Soares presents to the clinic today for postop check. On 10/27/2023 he went evaluation of possible right intranasal lesion, turned out to be deformed cartilage but no actual lesion was removed. The incision was closed with 5 0 fast-absorbing gut suture, simple interrupted x3. He has had minimal discomfort or swelling of this area. He does, however, mentioned continued sensation of chronic nasal congestion bilaterally. He points to the anterior nose on both sides and always feels stuffy and somewhat plugged in this area. It is slightly improved in the mornings and gets worse throughout the day. He is found that Astelin helps more than Flonase. Triple nasal spray has not been covered. He is tried NeilMed rinsing in the past but does not do so regularly. He does unfortunately continue to smoke cigarettes, a pack daily. He tells me he tried quitting for a couple of days and this made no difference in his symptoms. He had a sinus CT completed in June 2023 which shows some mucosal thickening in the frontal sinuses and ethmoid air cells with opacification of frontoethmoidal recesses, patient denies any pain or pressure in these areas. The following portions of the patient's history were reviewed: allergies, current medications, problem list, family history, medical history, social history and surgical history OBJECTIVE PHYSICAL EXAMINATION Patient is pleasant, in no acute distress. External nasal exam normal. Intranasal exam reveals wellhealed surgical site. Septal deviation noted to the right in area 1 2 and 3, no turbinate hypertrophy, polyps, or drainage. No obstruction. Oral cavity is without lesions. He wears dentures. Neck is without adenopathy. ASSESSMENT / PLAN 1. Satisfactory postoperative check 2. Chronic nasal congestion Discussed the importance of tobacco cessation. He has tried dwsk-qlb-jfnzxtl decongestants to no avail. He does have cats and dogs but does not think that he has allergies as he does not have frequent nasal rhinorrhea or sneezing. He will continue with Astelin and I would encourage him to start NeilMed rinsing twice daily and try to quit smoking. He is comfortable with this plan. Rhona Montague P.A.-C. documented in this encounter Plan of Treatment Not on file documented as of this encounter Visit Diagnoses Diagnosis Follow Up Examination Status Post Surgery- Primary Deviation Nasal Septal Congestion Nasal documented in this encounter Additional Health Concerns Assessment Noted Time PHQ-9 Depression Total Score: 4 09/19/19 18 11:05 AM MIXER OPERATOR TABLETS documented as of this encounter Care Teams Antisqueak Chalker Relationship Specialty Start Date End Date Elsewhere, Pcp PCP - General 12/04/21 documented as of this encounter
--- OUTSIDE RECORDS SUMMARY | 2024-01-28 22:16 | XMS_ITS | Encounter Summary ---
Author Organization [facility] Address [address] [place] [address] Care Team Providers Care Firearms Inspector Name Role Phone Elsewhere, Pcp Primary Care Provider Unavailabl e Reason for Visit * Reason Onset Date Comments Med Question 01/13/2024 Encounter Details Date Type Department Care Team (Late st Contact Info) Description 01/13/2024 Clinical Communication Department of Family Medicine, [facility], in [place], [place] [address] [place] [phone] Rhett Tompkins, Claudia-Ole., P.A. [address] [place] [address] Med Question Social History Tobacco Use Types Packs/Day Years [...] encounter Miscellaneous Notes * Telephone Encounter - Tri Cruz R.N. - 01/13/2024 3:37 PM CDT Wage And Salary Administrator relayed message from Rhett to patient: refill of Augmentin sent to pharmacy. He should be seen by his dentist documented in this encounter Plan of Treatment Not on file documented as of this encounter Visit Diagnoses Not on filedocumented in this encounter Additional Health Concerns Assessment Noted Time PHQ-9 Depression Total Score: 4 09/19/19 18 11:05 AM RELIABILITY ENGINEER documented as of this encounter Care Teams Firearms Inspector Relationship Specialty Start Date End Date Elsewhere, Pcp PCP - General 12/04/21 documented as of this encounter
--- OUTSIDE RECORDS SUMMARY | 2024-01-28 22:17 | XMS_ITS | Continuity of Care Document ---
Author Organization [facility] Address [address] [place] [address] Phone Care Team Providers Care Stitching Machine Setter Name Role Phone Jama APPIAH, Billy Unavailable Unavailable Advance Directives Directive Yes / No Effective Date File Name No Information Encounters Encounter Description Practice Location Reason(s) For Visit Diagnoses Date Provider Providers Copied on Encounter [facility], [address], [place], [place], [id number], [place] tel:[phone] [facility] No Information Jama Cervantes. [facility], [address], [address], [id number], [place]. tel:[phone] Family History Family Member Type Diagnosis Age At Onset No Information Payers Payer name Insurance type Covered alliance party ID Authoriza tion(s) No Information Social History [...]
--- OUTSIDE RECORDS SUMMARY | 2024-01-28 22:17 | XMS_ITS | Continuity of Care Document ---
Author Organization [facility] Address [address] [facility] [address] [place] [address] Phone Care Team Providers Care Cigar Making Machine Supervisor Name Role Phone Mariusz SHETHMitali Unavailable Unavailable [...] Cons New/estab Mod-hi [address] [facility], [address] [facility], [place], [place], [id number], [place] tel:[phone] [facility] No Information Mariusz Mitali. [address], [address], [place], [address], [place]. tel:[phone] Referring Provider: Abraham Ruiz DO, [address] [facility] [address] [facility], [place], [address]. tel:[phone] Family History Family Member Type Diagnosis Age At Onset No Information Payers Payer name Insurance type Covered green party ID Nahid cervantess) Joseph WASHBURN [id number] Social History Type Description Quantity Date Captured [...]
== END 2024-01-28 22:34 | disposition home or self-care (01) ==
LOC: ED 22:15
PROVIDERS: Emergency Provider Emergency Medicine Emergency Medical Services; PCP Physician Assistant
DX: L98.8 Other specified disorders of the skin and subcutaneous tissue (principal)
CPT/HCPCS: 99282; 99284; J1100

== ENCOUNTER 2024-05-10 17:52 | Emergency (ER) | payer MEDICARE, SELFPAY ==
[2024-05-10 18:15] VITALS: BP 138/94; PULSE 85; RESP 18; TEMP 36.7; O2SAT 96; BMI 22.3
--- OUTSIDE RECORDS SUMMARY | 2024-05-10 19:48 | XMS_ITS | Continuity of Care Document ---
Author Organization [facility] Address [address] [facility] [address] [facility] [address] [place] [address] Phone Care Team Providers Care Account Management Assistant Name Role Phone Mariusz SHETHMitali Unavailable Unavailable [...] Cons New/estab Mod-hi 60 [facility], [address] [facility] [address], [place], [place], [id number], [place] tel:[phone] [facility] No Information Mariusz Mitali. [address] [facility] [address] [facility], [address], [place], [address], [place]. tel:[phone] Referring Provider: Abraham Ruiz DO, [address] [facility] [address] [facility], [place], [address]. tel:[phone] Family History Family Member Type Diagnosis Age At Onset No Information Payers Payer name Insurance type Covered constitution party ID Nahid cervantess) Joseph WASHBURN [id number] Social History Type Description Quantity Date Captured [...]
--- OUTSIDE RECORDS SUMMARY | 2024-05-10 19:48 | XMS_ITS | Encounter Summary ---
Author Organization [facility] Address [address] [place] [address] Care Team Providers Care Template Storage Clerk Name Role Phone None, Pcp Primary Care Provider Unavailabl e Reason for Visit * Reason Comments Nasal Congestion Follow-up from previ ous visit unresolved. Encounter Details Date Type Department Care Team ([facility] st Contact Info) Description 04/02/2024 11:00 AM CDT Office Visit [address] [address] Shay Cohen, DNP, TILLER WORKER, DONOR RECRUITER [address] [place] [address] Nose septum deviation (Primary Dx); Nasal drainage Social History Tobacco Use Types Packs/Day Years Used Date Smoking Tobacco: Every Day Cigarettes Smokeless Tobacco: Never Tobacco Cessation:Ready to Q uit: No; Counseling Given: Yes Alcohol Use Standard Drinks/Week Comments Never 0 (1 standard drink = 0.6 oz pur e alcohol) Social Connection and Isolation Panel [NHANES] A nswer Date Recorded Frequency of Communication with Friends and Fami ly Not on file 02/06/2024 How often do you get together with friends or re latives? Once a week 02/06/2024 Attends Judaism Services Not on file 02/05 Do you belong to any clubs o r organizations such as taoism groups, unions, fraternal or athletic groups, or school groups? No 02/06/2024 How often do you attend meet ings of the clubs or organizations you belong to? Never 02/06/2024 Are you , , di vorced, , never , or living with a partner? 02/06/2024 AUDIT-C Answer Date Recorded Q1: How often do you have a drink containing alcohol? Never 02/06/2024 Q2: How many drinks containi ng alcohol do you have on a typical day when you are drinking? Patient does not drink Q3: How often do you have si x or more drinks on one occasion? Never 02/06/2024 PHQ-2 Answer Date Recorded PHQ-9 Total Score 0 02/06/2024 [facility] Occupational Stress Questionnaire Answer Date Recorded Do you feel stress - tense, restless, nervous, or anxious, or unable to sleep at night because your mind is troubled all the time - these days? Not at all 02/06/2024 Hunger Vital Sign Answer Date Recorded Within the past 12 months, y ou worried that your food would run out before you got the money to buy more. Never true 02/06/20 24 Ran Out of Food in the Last Year Not on file 02/06/2024 PRAPARE - Transportation Answer Date Re corded In the past 12 months, has l ack of transportation kept you from medical appointments or from getting medications? No 11/2023 In the past 12 months, has l ack of transportation kept you from meetings, work, or from getting things needed for daily living? No 02/06/2024 Housing Stability Vital Sign Answer Festus e Recorded In the last 12 months, was t here a time when you were not able to pay the mortgage or rent on time? No 02/06/2024 Number of Times Moved in the Last Year Not on fi le 02/06/2024 At any time in the past 12 m [facility], were you homeless or living in a long term (including now)? No 02/06/2024 Sex and Gender Information Value Date Recorded Sex Assigned at Not on file Gender Identity Not on file Sexual Orientation Not on file documented as of this encounter Last Filed Vital Signs Vital Sign Reading Time Taken Comments Blood Pressure 143/100 04/02/2024 11:02 AM CDT Pulse 82 04/02/2024 11:02 AM CDT Temperature 36.5 ??C (97.7 ??F) 04/02/2024 11:02 AM C DT Respiratory Rate 16 04/02/2024 11:02 AM CDT Oxygen Saturation 92% 04/02/2024 11:02 AM CDT Inhaled Oxygen Concentration - - Weight 69.9 kg (154 lb) 04/02/2024 11:02 AM CDT Height - - Body Mass Index 22.3 02/06/2024 1:43 PM CDT documented in this encounter Patient Instructions * Patient Instructions* Shay Cohen DNP, APRN, CNP - 04/02/2024 11:00 AM CDT Please reach out to your ENT in [place] at [facility]. Please provide usan update after you get a plan established. documented in this encounter Progress Notes * Shay Cohen DNP, APRN, CNP - 04/02/2024 11:00 AM CDT Subjective Patient ID: Reggie Soares is a 63 y.o. male. Chief Complaint Patient presents with Nasal Congestion Follow-up from previous visit unresolved. The patient presents today for nasal congestion and feeling of mass to right side of nose. He was seen previously for this issue in February, and was diagnosed with a septum deviation. ENT referral was placed. He states that he followed up with an ear nose throat physician at [facility] in [place], [place]. He states they performed a procedure to the right side of his nose to help with the feeling of congestion, though he is unsure what procedure was performed. Records from that visit are not available. He states he has thick fluid and mucus draining from his nose, as well as clear fluid from his eyesand his ears. He states he has tried numerous medications without any relief. He states antibioticshave been of no benefit. Nasal sprays and oral antihistamines have been ineffective. He has recurrent ear pain. Onset of symptoms was around 3 years ago, though symptoms have been worse in the past few days and months. He states that he did try to poke the area of inflammation with a needle, resulting in sticky, clear fluid coming out. He also feels inflammation at the end of his nose with a lumpthat is palpable. He is requesting a CT scan or MRI to evaluate, as he suspects there is a mass in his nose. The following portions of the patient's chart were reviewed in this encounter and updated as appropriate: Tobacco Allergies Meds Problems Med Hx Surg Hx Fam Hx Review of Systems Constitutional: Negative for chills, fatigue and fever. All other systems negative except those specified in HPI. HENT: Positive for congestion, ear discharge, ear pain and rhinorrhea. Negative for sinus pressure,sinus pain and sore throat. Respiratory: Negative for shortness of breath. Objective Physical Exam Constitutional: General: He is not in acute distress. Appearance: He is well-developed. He is not diaphoretic. HENT: Head: Normocephalic and atraumatic. Right Ear: Hearing, tympanic membrane, ear canal and external ear normal. Left Ear: Hearing, tympanic membrane, ear canal and external ear normal. Nose: Septal deviation present. No nasal deformity, signs of injury, nasal tenderness, congestion or rhinorrhea. Right Nostril: No foreign body, epistaxis, septal hematoma or occlusion. Left Nostril: No foreign body, epistaxis, septal hematoma or occlusion. Comments: Nasal septum deviation to the right. Mucous membranes are moist. Palpation of the nose does not reveal any abnormalities or lesions. No tenderness of sinuses. No significant facial deformities or scars. Mouth/Throat: Lips: Spreckels. Mouth: Mucous membranes are moist. Pharynx: Oropharynx is clear. Eyes: General: No scleral icterus. Conjunctiva/sclera: Conjunctivae normal. Pupils: Pupils are equal, round, and reactive to light. Neck: Thyroid: No thyromegaly. Vascular: No JVD. Cardiovascular: Rate and Rhythm: Normal rate and regular rhythm. Heart sounds: Normal heart sounds, S1 normal and S2 normal. No murmur heard. No friction rub. No gallop. Pulmonary: Effort: Pulmonary effort is normal. No respiratory distress. Breath sounds: Normal breath sounds. No wheezing or rales. Chest: Chest wall: No tenderness. Musculoskeletal: General: Normal range of motion. Cervical back: Normal range of motion and neck supple. Lymphadenopathy: Cervical: No cervical adenopathy. Skin: General: Skin is warm and dry. Neurological: Mental Status: He is alert. Deep Tendon Reflexes: Reflexes normal. Assessment/Plan Problem List Items Addressed This Visit Nose septum deviation - Primary Nasal septum deviation to the right. Exam and history are not consistent with and infectious process. Unfortunately records are currently unavailable from his recent ENT visit. Plan: TERRANCE signed, will get records from his ENT visit. He will reach out to his ENT to discuss the procedure performed, and he will follow-up with an ENT appointment within the week as scheduled. Based on evaluation of ENT, will consider imaging if recommended. If imaging is required and recommended, an order for an MRI or CT scan will be ordered. Continue self-care measures, including saline nasal rinses. We also discussed consistent use of lcnw-gpp-csjzpsa medications in the meantime. Other Visit Diagnoses Nasal drainage documented in this encounter Miscellaneous Notes * Assessment & Plan Note - Shay Cohen DNP, APRN, CNP - 04/02/2024 2:25 PM CDTAssociated Problem(s): Nose septum deviation Nasal septum deviation to the right. Exam and history are not consistent with and infectious process. Unfortunately records are currently unavailable from his recent ENT visit. Plan: TERRANCE signed, will get records from his ENT visit. He will reach out to his ENT to discuss the procedure performed, and he will follow-up with an ENT appointment within the week as scheduled. Based on evaluation of ENT, will consider imaging if recommended. If imaging is required and recommended, an order for an MRI or CT scan will be ordered. Continue self-care measures, including saline nasal rinses. We also discussed consistent use of xwva-nxf-qfgxvym medications in the meantime. documented in this encounter Plan of Treatment Not on file documented as of this encounter Visit Diagnoses Diagnosis Nose septum deviation- Primary Deviated nasal septum Nasal drainage documented in this encounter Care Teams Template Storage Clerk Relationship Specialty Start Date End Date None, Pcp [address] [place] [phone] PCP - General Parts Lister 10/22/21 documented as of this encounter
--- OUTSIDE RECORDS SUMMARY | 2024-05-10 19:48 | XMS_ITS | Referral Summary ---
Author Organization [facility] Address [address] [place] [address] Care Team Providers Care Credit Representative Name Role Phone Elsewhere, Pcp Primary Care Provider Unavailabl e Source Comments Patient records contain information from all sites at [facility]. For routine questions regarding patient records, call [phone] during business hours, M-F 8:00 AM - 5:00 PM Central Time. Record requests for emergency care only can be directed to [phone] at any time.[facility] Allergies Active Allergy Reactions Criticality Noted Date [...] 2 (two) times a day. 10/29/2023 Active Active Problems Problem Noted Date Diagnosed Date Pain Cervical 06/11/2015 Overview (09/19/2017): Overview: S/P Surgery 2004. 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 Chronic, continued pain. Cymbalta no benefit at 30mg. June 2015: Referral to Spinal Surgeon for consult Other Intervertebral Disc Displacement Lumbar Re gion 05/08/2015 Overview (09/19/2017): Overview: ~ April 2015:L5-S1 TF epidural steroid injection by Dr. Thomaosn with no benefit. June 2015: Referral to Spinal Surgeon for consult Polyp Colon Adenomatous 04/09/2015 Overview (09/19/2017): Overview: Colonoscopy 04/2015 polyp repeat in 5 [...] Comments Blood Pressure 148/92 10/26/2023 11:28 AM PUBLIC RELATIONS ASSISTANT Pulse 80 10/26/2023 11:28 AM PUBLIC RELATIONS ASSISTANT Temperature 35.6 ??C (96.1 ??F) 10/17/2023 10:[address] Respiratory Rate 16 10/17/2023 10:45 AM PUBLIC RELATIONS ASSISTANT Oxygen Saturation 97% 10/17/2023 10:45 AM PUBLIC RELATIONS ASSISTANT Inhaled Oxygen Concentration - - Weight 76.6 kg (168 lb 14 oz) 10/17/2023 10:45 A M PUBLIC RELATIONS ASSISTANT Height 179 cm (5' 10.47) 10/17/2023 10:45 AM CS T Body Mass Index 23.91 10/17/2023 10:45 AM PUBLIC RELATIONS ASSISTANT Plan of Treatment Not on file Procedures Procedure Name Priority Date/Time Associated Diagnosis Comments LIPID PANEL, S Routine 10/17/2023 11:55 AM PUBLIC RELATIONS ASSISTANT Encounter For Screening For Cardiovascular Disorders COMPREHENSIVE METABOLIC PANEL, S/P Routine 10/17/2023 11:55 AM PUBLIC RELATIONS ASSISTANT Onychomycosis COLONOSCOPY Routine 04/08/2015 from Last 3 Months or Most Recently Relevant to Health Maintenance Results * Lipid Panel (10/17/2023 11:55 AM PUBLIC RELATIONS ASSISTANT) Triglycerides 71 mg/dL 10/17/2023 2:19 PM PUBLIC RELATIONS ASSISTANT OWAT Comment: ----REFERENCE VALUE---- Normal: <150 mg/dL Borderline High: 150-199 mg/dL High: 200-499 mg/dL Very High: > or =500 mg/dL Cholesterol, Total 155 mg/dL 2023 2:19 PM PUBLIC RELATIONS ASSISTANT OWAT Comment: ----REFERENCE VALUE---- Desirable: < 200 mg/dL Borderline High: 200 - 239 mg/dL High: > or = 240 mg/dL Cholesterol, LDL, Calculated 81 mg/dL 10/17/2023 2:19 PM PUBLIC RELATIONS ASSISTANT OWAT Comment: ----REFERENCE VALUE---- Desirable: <100 mg/dL Above Desirable: 100-129 mg/dL Borderline High: 130-159 mg/dL High: 160-189 mg/dL Very High: >=190 mg/dL ----ADDITIONAL INFORMATION---- LDL cholesterol calculated using the Borrero/NIH equation. Cholesterol, HDL 60 >=40 mg/dL 10/17/19 2:19 PM PUBLIC RELATIONS ASSISTANT OWAT Cholesterol, Non-HDL, Calculated 95 mg/dL 10/17/2023 2:19 PM PUBLIC RELATIONS ASSISTANT OWAT Comment: ----REFERENCE VALUE---- Desirable: <130 mg/dL Above Desirable: 130-159 mg/dL Borderline High: 160-189 mg/dL High: 190-219 mg/dL Very High: > or =220 mg/dL Fasting (8 HR or more) Yes 10/17/2023 1:32 PM PUBLIC RELATIONS ASSISTANT OWAT Blood (Blood, Venous) 10/17/2023 11:55 AM PUBLIC RELATIONS ASSISTANT 10/17/2023 1:32 PM PUBLIC RELATIONS ASSISTANT Rhett Tompkins P.A.-C. LAB BLOOD ADD- ON [facility] [address] [place] [address], [place] [employer] [facility] [place] [address] [place] [address] * Comprehensive Metabolic Panel (10/17/2023 11:55 AM PUBLIC RELATIONS ASSISTANT) Potassium, P 4.4 3.6 - 5.2 mmol/L 10/17/2023 2:19 PM PUBLIC RELATIONS ASSISTANT OWAT Sodium, P 142 135 - 145 mmol/L 10/17/2023 2:19 PM PUBLIC RELATIONS ASSISTANT OWAT Chloride, P 104 98 - 107 mmol/L 10/17/2023 2:19 PM PUBLIC RELATIONS ASSISTANT OWAT Bicarbonate, P 28 22 - 29 mmol/L 10/17/2023 2:19 PM PUBLIC RELATIONS ASSISTANT OWAT Anion Gap, P 10 7 - 15 10/17/2023 2:19 PM PUBLIC RELATIONS ASSISTANT OWAT BUN (Blood Urea Nitrogen), P 17 8 - 24 mg/dL 10/17/2023 2:19 PM PUBLIC RELATIONS ASSISTANT OWAT Creatinine 0.76 0.74 - 1.35 mg/dL 10/17/2023 2:19 PM PUBLIC RELATIONS ASSISTANT OWAT Estimated GFR (eGFR) >90 >=60 mL/min/BS A 10/17/2023 2:19 PM PUBLIC RELATIONS ASSISTANT OWAT Comment: Estimated GFR calculated using the 2020 CKD_EPI creatinine equation. Calcium, Total, P 9.5 8.8 - 10.2 mg/dL 10/17/2023 2:19 PM PUBLIC RELATIONS ASSISTANT OWAT Glucose, P 120 70 - 140 mg/dL 10/17/2023 2:19 PM PUBLIC RELATIONS ASSISTANT OWAT Protein, Total, P 7.5 6.3 - 7.9 g/dL 10/17/2023 2:19 PM PUBLIC RELATIONS ASSISTANT OWAT Albumin, P 4.5 3.5 - 5.0 g/dL 10/17/2023 2:19 PM PUBLIC RELATIONS ASSISTANT OWAT Aspartate Aminotransferase (AST), P 31 8 - 48 U/L 10/17/2023 2:19 PM PUBLIC RELATIONS ASSISTANT OWAT Alkaline Phosphatase, P 77 40 - 129 U/L 10/17/2023 2:19 PM PUBLIC RELATIONS ASSISTANT OWAT Alanine Aminotransferase (ALT), P 21 7 - 55 U/L 10/17/2023 2:19 PM PUBLIC RELATIONS ASSISTANT OWAT Bilirubin, Total, P 0.5 0.0 - 1.2 mg/dL 10/17/2023 2:19 PM PUBLIC RELATIONS ASSISTANT OWAT Blood (Blood, Venous) 10/17/2023 11:55 AM PUBLIC RELATIONS ASSISTANT 10/17/2023 1:32 PM PUBLIC RELATIONS ASSISTANT Marlyn Cintron P.A.-C. LAB BLOOD ADD-ON [facility] [address] [place] [address], [facility] OW[facility] [place] [address] [place] [address] * Colonoscopy (04/08/2015) EXT Colonoscopy Abnormal - See Scanned Report for Details Normal - See Scanned Report for Details, HIMS - Report Received and Scanned Comment:see care everywhere for result details Historical Provider GI PROCEDURE ORDERAB LES from Last 3 Months or Most Recently Relevant to Health Maintenance Care Teams Credit Representative Relationship Specialty Start Date End Date Elsewhere, Pcp PCP - General 12/04/21
--- OUTSIDE RECORDS SUMMARY | 2024-05-10 19:48 | XMS_ITS | Clinical Summary ---
Author Organization [facility] Address [place], [place] [address] Care Team Providers Care Chief Technology Officer Name Role Phone Nonstaff, Doctor Unavailable Unavailable Rhett Tompkins Primary Care Provider [phone] Allergies Active Allergy Reactions Criticality Noted Date [...] and at bedtime. 60 Tablet 10/24/2023 Active trimethoprim-sulfam ethoxazole, 160-800 mg, (BACTRIM DS, SEPTRA DS) tabIndications:Nasa l abscess Take 1 Tablet by mouth two times daily for 7 days. 14 Tablet 04/05/2024 04/12/2024 Active Problems Problem Noted Date Diagnosed Date Sensorineural hearing loss, bilateral 08/11/2022 Chronic neck pain 06/11/2015 Overview: S/P Surgery 2004. 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 Chronic, continued pain. Cymbalta no [...] Encounters Date Type Department Care Team Description 05/07/2024 6:33 PM CDT - 05/07/2024 7:18 PM CDT Emergency [facility] [address] [place] [address] Elsa Canada MD Nasal disorder (Primary Dx) Discharge Disposition: Home Self Care 05/07/2024 Travel 04/05/2024 6:20 PM CDT Office Visit [facility] [address] [place] [address] Glenis Muller, JEWEL Nose Problem (Sores in nose- painful. First noted about 6 weeks ago. Growing in size.) 04/05/2024 Travel from Last 3 Months Social History Tobacco Use Types Packs/Day Years Used Date Smoking Tobacco: Every Day Cigarettes Smokeless Tobacco: Never Tobacco Cessation:Ready to Q uit: No; Counseling Given: Yes Alcohol Use Standard Drinks/Week Comments No 0 (1 standard drink = 0.6 oz pur e alcohol) Social Connections Answer Date Recorded Frequency of Communication with Friends and Fami ly 0 04/06/2024 Financial Resource Strain Answer Date R ecorded Difficulty of Paying Living Expenses 3 04/06/2024 Difficulty of Paying Living Expenses Not on file 04/06/2024 Food Insecurity Answer Date Recorded Worried About Running Out of Food in the Last Ye ar 1 04/06/2024 Transportation Needs Answer Date Record ed Lack of Transportation (Medical) 1 04/06/2024 Housing Stability Answer Date Recorded Unable to Pay for Housing in the Last Year 1 04/06/2024 Sex and Gender Information Value Date Recorded Sex Assigned at Not on file Gender Identity Not on file Sexual Orientation Not on file Obstetrics History Last Filed Vital Signs Vital Sign Reading Time Taken Comments Blood Pressure 152/96 05/07/2024 7:08 PM CDT Pulse 79 05/07/2024 6:48 PM CDT Temperature 36.6 ??C (97.9 ??F) 05/07/2024 6:48 PM CD T Respiratory Rate 16 05/07/2024 6:48 PM CDT Oxygen Saturation 96% 05/07/2024 6:48 PM CDT Inhaled Oxygen Concentration - - Weight 71.4 kg (157 lb 6.4 oz) 05/07/2024 6:47 P M CDT Height 181.6 cm (5' 11.5) 05/07/2024 6:47 PM CD T Body Mass Index 21.65 05/07/2024 6:47 PM CDT Plan of Treatment Health Maintenance [...] 04/08/2020 04/08/2015 COVID-19 vaccine series (2022- season) 4 Influenza for age 50-64 05/06/2024 Medical Devices Implanted Type Area Aviation Engineer Device Identifier Shelf Expiration Date Model / Serial / Lot Mesh Ventral 3x6in Bard Soft - [id number] Implanted:Qty: 2 on 12/14/2017 by Victorino Sanders MD at [facility] Bilateral: Inguinal [employer] 09/01/2022 [id number] / / [id number] Description:BARD Soft Mesh, Bilateral Inguinal Advance Directives * Full Code (Latest Code Status on File) Date Activated Date Inactivated Comments 10/27/2023 12:31 PM 10/27/2023 7:12 PM Question Answer Comments Code Status Discussion: Reviewed Preferences * Full Code Date Activated Date Inactivated Comments 12/14/2017 7:02 AM 12/14/2017 3:36 PM Care Teams Chief Technology Officer Relationship Specialty Start Date End Date Rhett Tompkins PA [address] [facility] [id number] PCP - General Physician Gizzard Puller 06/08/23 Nonstaff, Doctor NON STAFF DOCTOR 12/19/13
--- OUTSIDE RECORDS SUMMARY | 2024-05-10 19:48 | XMS_ITS | Encounter Summary ---
Author Organization [facility] Address [address] [place] [address] Care Team Providers Care Nurse Sexual Assault Name Role Phone None, Pcp Primary Care Provider Unavailabl e Encounter Details Date Type Department Care Team (Late st Contact Info) Description 02/14/2024 Telephone [place] [address] [place] [address] None, Pcp [address] [place] [address] Social History Tobacco Use Types Packs/Day Years Used Date Smoking Tobacco: Every Day Cigarettes Smokeless Tobacco: Never Alcohol Use Standard Drinks/Week Comments Never 0 (1 standard drink = 0.6 oz pur e alcohol) Social Connection and Isolation Panel [NHANES] A nswer Date Recorded Frequency of Communication with Friends and Fami ly Not on file 02/06/2024 How often do you get together with friends or re latives? Once a week 02/06/2024 Attends Zoroastrian Services Not on file 02/05 Do you belong to any clubs o r organizations such as temple groups, unions, fraternal or athletic groups, or [...] Date Recorded PHQ-9 Total Score 0 02/06/2024 [facility] of Occupat ional Health - Occupational Stress Questionnaire Answer Date Recorded [...] any time in the past 12 m [facility], were you homeless or living in a intermediate (including now)? No 02/06/2024 Sex and Gender Information Value Date Recorded Sex Assigned at Not on file Gender Identity Not on file Sexual Orientation Not on file documented as of this encounter Miscellaneous Notes * Telephone Encounter - Camila Sanchez RN - 02/16/2024 10:45 AM CDT FYI only. * Telephone Encounter - Camila Sanchez RN - 02/16/2024 10:39 AM CDT Nurse spoke with patient who reports he has an appointment with [facility] [place] next week. [place] be [place] [facility] [place] if needed for pre-ops, etc. * Telephone Encounter - Stefano Disla RN - 02/14/2024 1:57 PM CDT Pt calling stating he won't be able to get in with ENT for several months as they are waiting to hire a new provider. Pt wondering if Shay can prescribe something that pt hasn't been prescribed before for congestion/what are his recommendations. Forwarded to Shay for review documented in this encounter Plan of Treatment Not on file documented as of this encounter Visit Diagnoses Not on filedocumented in this encounter Care Teams Nurse Sexual Assault Relationship Specialty Start Date End Date None, Pcp [address] [place] [address] PCP - General Tourist Escort 10/22/21 documented as of this encounter
--- OUTSIDE RECORDS SUMMARY | 2024-05-10 19:48 | XMS_ITS | Encounter Summary ---
Author Organization [facility] Address [address] [place] [address] Care Team Providers Care Resin Maker Name Role Phone None, Pcp Primary Care Provider Unavailabl e Reason for Visit * Reason Comments Med Refill Encounter Details Date Type Department Care Team (Late st Contact Info) Description 02/15/2024 Refill [place] [address] [place] [address] Shay Cohen, DNP, [employer], SOLAR ELECTRIC INSTALLER [address] [facility] [address] [place] [address] Nose septum deviation Social History Tobacco Use Types Packs/Day Years [...] re latives? Once a week 02/06/2024 Attends Mu-Ism Services Not on file 02/05 Do you belong to any clubs o r organizations such as jew groups, unions, fraternal or athletic groups, or [...] Date Recorded PHQ-9 Total Score 0 02/06/2024 [facility] of Occupat ional Health - Occupational Stress [...] any time in the past 12 m [facility], were you homeless or living in a fpc (including now)? No 02/06/2024 Sex and Gender Information Value Date Recorded Sex Assigned at Not on file Gender Identity Not on file Sexual Orientation Not on file documented as of this encounter Miscellaneous Notes * Telephone Encounter - Arianna Henley APRN - 02/21/2024 1:38 PM CDT Already sent in * Telephone Encounter - Sola Kauffman MA - 02/20/2024 6:36 AM CDT Upcoming appointment with provider: Visit date not found Last visit in provider department: 02/06/2024 Last visit requested medication was discussed: 02/06/24, est care. Last Rx: Requesting 90 day supply azelastine (ASTELIN) 0.1 % nasal spray 02/15/24, #30ml, 1 refill fluticasone (FLONASE) 50 MCG/ACT nasal spray 02/15/24, #16g, 1 refill Requested Prescriptions Pending Prescriptions Disp Refills azelastine (ASTELIN) 0.1 % nasal spray [Pharmacy Med Name: AZELASTINE 0.1%(137MCG) NASAL-200SP] 90 mL Sig: USE 2 SPRAYS IN EACH NOSTRIL TWICE DAILY DIRECTED fluticasone (FLONASE) 50 MCG/ACT nasal spray [Pharmacy Med Name: FLUTICASONE 50MCG NASAL SP (120) RX] 48 g Sig: SHAKE LIQUID AND USE 1 SPRAY IN EACH NOSTRIL TWICE DAILY Vitals: BP Readings from Last 2 Encounters: 02/06/24 (!) 130/92 10/30/21 114/64 Last Controlled Substance Agreement (CSA): Last Random Urine Drug Screen (RUDS): documented in this encounter Plan of Treatment Not on file documented as of this encounter Visit Diagnoses Diagnosis Nose septum deviation Deviated nasal septum documented in this encounter Care Teams Resin Maker Relationship Specialty Start Date End Date None, Pcp [address] [place] [phone] PCP - General Salesperson [employer] 10/22/21 documented as of this encounter
--- OUTSIDE RECORDS SUMMARY | 2024-05-10 19:48 | XMS_ITS | Clinical Summary ---
Author Organization [facility] Address [address] [place] [address] Care Team Providers Care Room Worker Name Role Phone Elsewhere, Pcp Primary Care Provider Unavailabl e Source Comments Patient records contain information from all sites at [facility]. For routine questions regarding patient records, call [phone] during business hours, M-F 8:00 AM - 5:00 PM Central Time. Record requests for emergency care only can be directed to [phone] at any time.[facility] Allergies Active Allergy Reactions Criticality Noted [...] Comments Blood Pressure 148/92 10/26/2023 11:28 AM SUPERVISOR ENGRAVING Pulse 80 10/26/2023 11:28 AM SUPERVISOR ENGRAVING Temperature 35.6 ??C (96.1 ??F) 10/17/2023 10:[address] Respiratory Rate 16 10/17/2023 10:45 AM SUPERVISOR ENGRAVING Oxygen Saturation 97% 10/17/2023 10:45 AM SUPERVISOR ENGRAVING Inhaled Oxygen Concentration - - Weight 76.6 kg (168 lb 14 oz) 10/17/2023 10:45 A M SUPERVISOR ENGRAVING Height 179 cm (5' 10.47) 10/17/2023 10:45 AM CS T Body Mass Index 23.91 10/17/2023 10:45 AM SUPERVISOR ENGRAVING Plan of Treatment Health Maintenance Due Date Last Done Comments CT Colonography 1959 Cologuard 1959 HIV Screening 1959 Hepatitis C Screening 1959 Tobacco Cessation counseling 1959 Pneumococcal vaccine (0-64 y ears) (1 of 2 - PCV) 1965 Zoster Vaccines (1 of 2) 2009 Colonoscopy 04/08/2020 04/08/2015, 0809/2014, 02/17/2015 Colorectal Cancer Surveillance 04/08/2020 COVID-19 Vaccine (1 - 2022-2 4 season) 2024 Influenza Vaccine (#1) 2024 Creatinine Level (Kidney Fun ction Test) 10/17/2024 10/17/2023, 06/06/2023, 05/02/2023, Additional history exists Potassium Level 10/17/2024 10/17/2023, 100 10/2022, 05/02/2023, Additional history exists Sodium Level 10/17/2024 10/17/2023, 1010/2022, 05/02/2023, Additional history exists Fasting Glucose for Diabetes Screening 10/17/2026 10/17/2023, 06/06/2023, 05/02/2023, Additional history exists Lipid (Cholesterol) Screening 10/17/2028, 09/19/2017, 06/10/2015 DTaP,Tdap,and Td Vaccines (4 - Td or Tdap) 10/17/2033 10/17/2023, 10/23/2009, 10/23/2009 Depression Screening (Annual PHQ-2) Completed 10/17/2023, 10/17/2023 Procedures Procedure Name Priority Date/Time Associated Diagnosis Comments LIPID PANEL, S Routine 10/17/2023 11:55 AM SUPERVISOR ENGRAVING Encounter For Screening For Cardiovascular Disorders COMPREHENSIVE METABOLIC PANEL, S/P Routine 10/17/2023 11:55 AM SUPERVISOR ENGRAVING Onychomycosis COLONOSCOPY Routine 04/08/2015 from Last 3 Months or Most Recently Relevant to Health Maintenance Results * Lipid Panel (10/17/2023 11:55 AM SUPERVISOR ENGRAVING) Triglycerides 71 mg/dL 10/17/2023 2:19 PM SUPERVISOR ENGRAVING OWAT Comment: ----REFERENCE VALUE---- Normal: <150 mg/dL Borderline High: 150-199 mg/dL High: 200-499 mg/dL Very High: > or =500 mg/dL Cholesterol, Total 155 mg/dL 2023 2:19 PM SUPERVISOR ENGRAVING OWAT Comment: ----REFERENCE VALUE---- Desirable: < 200 mg/dL Borderline High: 200 - 239 mg/dL High: > or = 240 mg/dL Cholesterol, LDL, Calculated 81 mg/dL 10/17/2023 2:19 PM SUPERVISOR ENGRAVING OWAT Comment: ----REFERENCE VALUE---- Desirable: <100 mg/dL Above Desirable: 100-129 mg/dL Borderline High: 130-159 mg/dL High: 160-189 mg/dL Very High: >=190 mg/dL ----ADDITIONAL INFORMATION---- LDL cholesterol calculated using the Borrero/NIH equation. Cholesterol, HDL 60 >=40 mg/dL 10/17/19 2:19 PM SUPERVISOR ENGRAVING OWAT Cholesterol, Non-HDL, Calculated 95 mg/dL 10/17/2023 2:19 PM SUPERVISOR ENGRAVING OWAT Comment: ----REFERENCE VALUE---- Desirable: <130 mg/dL Above Desirable: 130-159 mg/dL Borderline High: 160-189 mg/dL High: 190-219 mg/dL Very High: > or =220 mg/dL Fasting (8 HR or more) Yes 10/17/2023 1:32 PM SUPERVISOR ENGRAVING OWAT Blood (Blood, Venous) 10/17/2023 11:55 AM SUPERVISOR ENGRAVING 10/17/2023 1:32 PM SUPERVISOR ENGRAVING Rhett Tompkins P.A.-C. LAB BLOOD ADD- ON [facility] [address] [place] [address], [facility] OWAT [facility] [place] [address] [place] [address] * Comprehensive Metabolic Panel (10/17/2023 11:55 AM SUPERVISOR ENGRAVING) Potassium, P 4.4 3.6 - 5.2 mmol/L 10/17/2023 2:19 PM SUPERVISOR ENGRAVING OWAT Sodium, P 142 135 - 145 mmol/L 10/17/2023 2:19 PM SUPERVISOR ENGRAVING OWAT Chloride, P 104 98 - 107 mmol/L 10/17/2023 2:19 PM SUPERVISOR ENGRAVING OWAT Bicarbonate, P 28 22 - 29 mmol/L 10/17/2023 2:19 PM SUPERVISOR ENGRAVING OWAT Anion Gap, P 10 7 - 15 10/17/2023 2:19 PM SUPERVISOR ENGRAVING OWAT BUN (Blood Urea Nitrogen), P 17 8 - 24 mg/dL 10/17/2023 2:19 PM SUPERVISOR ENGRAVING OWAT Creatinine 0.76 0.74 - 1.35 mg/dL 10/17/2023 2:19 PM SUPERVISOR ENGRAVING OWAT Estimated GFR (eGFR) >90 >=60 mL/min/BS A 10/17/2023 2:19 PM SUPERVISOR ENGRAVING OWAT Comment: Estimated GFR calculated using the 2020 CKD_EPI creatinine equation. Calcium, Total, P 9.5 8.8 - 10.2 mg/dL 10/17/2023 2:19 PM SUPERVISOR ENGRAVING OWAT Glucose, P 120 70 - 140 mg/dL 10/17/2023 2:19 PM SUPERVISOR ENGRAVING OWAT Protein, Total, P 7.5 6.3 - 7.9 g/dL 10/17/2023 2:19 PM SUPERVISOR ENGRAVING OWAT Albumin, P 4.5 3.5 - 5.0 g/dL 10/17/2023 2:19 PM SUPERVISOR ENGRAVING OWAT Aspartate Aminotransferase (AST), P 31 8 - 48 U/L 10/17/2023 2:19 PM SUPERVISOR ENGRAVING OWAT Alkaline Phosphatase, P 77 40 - 129 U/L 10/17/2023 2:19 PM SUPERVISOR ENGRAVING OWAT Alanine Aminotransferase (ALT), P 21 7 - 55 U/L 10/17/2023 2:19 PM SUPERVISOR ENGRAVING OWAT Bilirubin, Total, P 0.5 0.0 - 1.2 mg/dL 10/17/2023 2:19 PM SUPERVISOR ENGRAVING OWAT Blood (Blood, Venous) 10/17/2023 11:55 AM SUPERVISOR ENGRAVING 10/17/2023 1:32 PM SUPERVISOR ENGRAVING Marlyn Cintron P.A.-C. LAB BLOOD [facility] [address] [place] [address], [place] OWAT [facility] [place] [address] [place] [address] * Colonoscopy (04/08/2015) EXT Colonoscopy Abnormal - See Scanned Report for Details Normal - See Scanned Report for Details, HIMS - Report Received and Scanned Comment:see care everywhere for result details Historical Provider GI PROCEDURE ORDERAB LES from Last 3 Months or Most Recently Relevant to Health Maintenance Care Teams Room Worker Relationship Specialty Start Date End Date Elsewhere, Pcp PCP - General 12/04/21
--- OUTSIDE RECORDS SUMMARY | 2024-05-10 19:48 | XMS_ITS | Encounter Summary ---
Author Organization [facility] er Address [address] [place] [address] Care Team Providers Care Criminal Intelligence Analyst Name Role Phone None, Pcp Primary Care Provider Unavailabl e Reason for Referral * Consultation (Routine) - Authorized Specialty Diagnoses / Procedures Referred By Humberto t Referred To Contact Otolaryngology Diagnoses Nose septum deviation Shay Cohen DNP, LIFE CARE PLANNER, DENTAL CERAMIST [address] [address] Ear Nose Throat [address] [place] [address] Referral ID Status Reason Start Date Expiration Date Visits Requested Visits Authorized [id number] Authorized Specialty Services Required 02/06/2024 02/05/2025 1 1 Scheduling Instructions Please call the [facility] desk at [phone]. [phone] to schedule an appointment. Reason for Visit * Reason Comments Establish Care X 3 years having tro uble with nasal Encounter Details Date Type Department Care Team (Late st Contact Info) Description 02/06/2024 1:40 PM CDT Office Visit [place] [address] [place] [address] Shay Cohen DNP, LIFE CARE PLANNER, DENTAL CERAMIST [address] [id number] Nose septum deviation (Primary Dx) Social History Tobacco Use Types Packs/Day Years [...] re latives? Once a week 02/06/2024 Attends Taoism Services Not on file 02/05 Do you belong to any clubs o r organizations such as religion groups, unions, fraternal or athletic groups, or [...] Date Recorded PHQ-9 Total Score 0 02/06/2024 [facility] Occupat ional Health - Occupational Stress [...] any time in the past 12 m [facility], were you homeless or living in a detention (including now)? No 02/06/2024 Sex and Gender Information Value Date Recorded Sex Assigned at Not on file Gender Identity Not on file Sexual Orientation Not on file documented as of this encounter Last Filed Vital Signs Vital Sign Reading Time Taken Comments Blood Pressure 130/92 02/06/2024 1:43 PM CDT Pulse 74 02/06/2024 1:43 PM CDT Temperature 36.6 ??C (97.9 ??F) 02/06/2024 1:43 PM CD T Respiratory Rate 16 02/06/2024 1:43 PM CDT Oxygen Saturation 95% 02/06/2024 1:43 PM CDT Inhaled Oxygen Concentration - - Weight 74.3 kg (163 lb 11.2 oz) 02/06/2024 1:43 PM CDT Height 177 cm (5' 9.69) 02/06/2024 1:43 PM CDT Body Mass Index 23.7 02/06/2024 1:43 PM CDT documented in this encounter Progress Notes * Shay Cohen, DNP, LIFE CARE PLANNER, DENTAL CERAMIST - 02/06/2024 1:40 PM CDT Subjective Patient ID: Reggie Soares is a 63 y.o. male. Chief Complaint Patient presents with [facility] X 3 years having trouble with nasal The patient presents to the clinic for difficulty breathing through his nose. He states the symptoms have been worse in the past 3 years, and much worse in the past 3 months. He states he tried Flonase and antihistamines without any relief. He states that it is difficult to breathe through the right side of his nose. He was treated in the ER in October with polypectomy, though denies any significant relief. He would like an ENT referral for a second opinion. The following portions of the patient's chart were reviewed in this encounter and updated as appropriate: Tobacco Allergies Meds Med Hx Surg Hx Fam Hx Review of Systems Constitutional: All other systems negative except those specified in HPI. HENT: Positive for congestion. Respiratory: Negative for cough and shortness of breath. Cardiovascular: Negative for chest pain. Objective Physical Exam Vitals and nursing note reviewed. Constitutional: General: He is not in acute distress. Appearance: He is well-developed. He is not diaphoretic. HENT: Head: Normocephalic and atraumatic. Right Ear: Hearing, tympanic membrane, ear canal and external ear normal. Left Ear: Hearing, tympanic membrane, ear canal and external ear normal. Nose: Septal deviation present. No nasal tenderness, congestion or rhinorrhea. Right Turbinates: Not enlarged. Left Turbinates: Not enlarged. Right Sinus: No maxillary sinus tenderness or frontal sinus tenderness. Left Sinus: No maxillary sinus tenderness or frontal sinus tenderness. Comments: Septum deviated to right side. Mouth/Throat: Lips: [place]. Tongue: No lesions. Pharynx: Oropharynx is clear. Eyes: General: Lids are normal. No scleral icterus. Extraocular Movements: Extraocular movements intact. Conjunctiva/sclera: Conjunctivae normal. Pupils: Pupils are equal, round, and reactive to light. Neck: Thyroid: No thyromegaly. Vascular: No JVD. Trachea: Trachea normal. Cardiovascular: Rate and Rhythm: Normal rate and regular rhythm. Pulses: Normal pulses. Radial pulses are 2+ on the right side and 2+ on the left side. Heart sounds: Normal heart sounds, S1 normal [...] Skin: General: Skin is warm and dry. Capillary Refill: Capillary refill takes less than 2 seconds. Neurological: Mental Status: He is alert. Assessment/Plan Diagnoses and all orders for this visit: Nose septum deviation - Ambulatory referral to ENT Septal deviation to the right, breathing issues through the nose for over 3 years and worse in the past few months. Not improved with OTC Flonase, oral antihistamines, or decongestants. Requesting evaluation and treatment plan, and the patient would like consideration for septoplasty. documented in this encounter Plan of Treatment Scheduled Referrals Name Type Priority Associated Diagnoses Order Schedule Ambulatory referral to ENT Outpatient Referral Routine Nose septum deviation Ordered: 02/06/2024 documented as of this encounter Visit Diagnoses Diagnosis Nose septum deviation- Primary Deviated nasal septum documented in this encounter Care Teams Criminal Intelligence Analyst Relationship Specialty Start Date End Date None, Pcp [address] [place] [address] PCP - General Utility Arborist 10/22/21 documented as of this encounter
--- OUTSIDE RECORDS SUMMARY | 2024-05-10 19:48 | XMS_ITS | Encounter Summary ---
Author Organization [facility] er Address [address] [place] [address] Care Team Providers Care Smog Technician Name Role Phone None, Pcp Primary Care Provider Unavailabl e Encounter Details Date Type Department Care Team (Late st Contact Info) Description 02/15/2024 Orders Only [place] [address] [place] [address] Shay Cohen, DNP, COMPLIANCE PARALEGAL, CANDLE MOLDER 111 [facility] [address] [place], [place] [address] Nose septum deviation (Primary Dx) Social History [...] re latives? Once a week 02/06/2024 Attends Tenriism Services Not on file 02/05 Do you belong to any clubs o r organizations such as jainism groups, unions, fraternal or athletic groups, or [...] Date Recorded PHQ-9 Total Score 0 02/06/2024 [facility] Occupat ional Health - Occupational Stress [...] any time in the past 12 m [facility], were you homeless or living in a snf (including now)? No 02/06/2024 Sex and Gender Information Value Date Recorded Sex Assigned at Not on file Gender Identity Not on file Sexual Orientation Not on file documented as of this encounter Plan of Treatment Not on file documented as of this encounter Visit Diagnoses Diagnosis Nose septum deviation- Primary Deviated nasal septum documented in this encounter Care Teams Smog Technician Relationship Specialty Start Date End Date None, Pcp [address] [place] [place] [address] PCP - General Tack Welder 10/22/21 documented as of this encounter
--- OUTSIDE RECORDS SUMMARY | 2024-05-10 19:48 | XMS_ITS | Continuity of Care Document ---
Author Organization [facility] Address [address] [place] [address] Phone Care Team Providers Care Cardiology Coordinator Name Role Phone Jama APPIAH, Billy Unavailable Unavailable Advance Directives Directive Yes / No Effective Date File Name No Information Encounters Encounter Description Practice Location Reason(s) For Visit Diagnoses Date Provider Providers Copied on Encounter [facility], [address], [place], [place], [id number], [place] tel:[phone] [facility] - [facility] No Information Jama Cervantes. [facility], [address] [place] [address], [address], [id number], [place]. tel:[phone] Family History Family Member Type Diagnosis Age At Onset No Information Payers Payer name Insurance type Covered libertarian ID Authoriza tion(s) No Information Social History [...]
--- OUTSIDE RECORDS SUMMARY | 2024-05-10 19:48 | XMS_ITS | Clinical Summary ---
Author Organization [facility] er Address [address] [place] [address] Care Team Providers Care Double Bass Player Name Role Phone None, Pcp Primary Care Provider Unavailabl e Allergies Active Allergy Reactions Criticality Noted Date Comments Naproxen GI intolerance 02/18/2015 Patient reports vomiting blood Medications Medication Sig Dispensed Refills Start Date End Date Status ibuprofen (ADVIL) 600 MG tablet Take 1 tablet (600 mg total) by mouth every 6 hours as needed 06/08/2023 Active acetaminophen (TYLENOL) 325 MG tablet Take by mouth every 6 (six) hours if needed for mild pain Active azelastine (ASTELIN) 0.1 % nasal sprayIndications:Nos e septum deviation Administer 2 sprays into each nostril 2 (two) times a day Use in each nostril as directed 30 mL 1 02/15/2024 Active fluticasone (FLONASE) 50 MCG/ACT nasal sprayIndications:Nos e septum deviation Administer 1 spray into each nostril 2 (two) times a day 16 g 1 02/15/2024 Active Additional Information Patient not taking.Reported on 04/02/2024 Active Problems Problem Noted Date Diagnosed Date Nose septum deviation 04/02/2024 Last Assessment & Plan: Nasal septum deviation to the right. Exam [...] rinses. We also discussed consistent use of [id number]-[id number] medications in the meantime. Encounters Date Type Department Care Team Description 04/02/2024 11:00 AM CDT Office Visit [facility] [address] Shay Cohen, ÁNGEL, E COMMERCE SPECIALIST, PRACTICE PROFESSIONAL Nose septum deviation (Primary Dx); Nasal drainage 02/15/2024 Refill [facility] [address] Shay Cohen DNP, E COMMERCE SPECIALIST, PRACTICE PROFESSIONAL Nose septum deviation 02/15/2024 Orders Only [facility] [address] Shay Cohen, ÁNGEL, E COMMERCE SPECIALIST, PRACTICE PROFESSIONAL Nose septum deviation (Primary Dx) 02/14/2024 Telephone [facility] [address] None, Pcp from Last 3 Months Immunizations Name Administration Dates Next Due Tdap 10/17/2023,10/23/2009 Family History Relation Status Comments Father Mother Social History Tobacco Use Types Packs/Day Years [...] re latives? Once a week 02/06/2024 Attends Sikhism Services Not on file 02/05 Do you belong to any clubs o r organizations such as rastafari groups, unions, fraternal or athletic groups, or [...] Date Recorded PHQ-9 Total Score 0 02/06/2024 [facility] of Occupat ional Health - [...] any time in the past 12 m [facility], were you homeless or living in a mcc (including now)? No 02/06/2024 Sex and Gender Information Value Date Recorded Sex Assigned at Not on file Gender Identity Not on file Sexual Orientation Not on file Last Filed Vital Signs Vital Sign Reading Time Taken Comments Blood Pressure 143/100 04/02/2024 11:02 AM CDT Pulse 82 04/02/2024 11:02 AM CDT Temperature 36.5 ??C (97.7 ??F) 04/02/2024 11:02 AM C DT Respiratory Rate 16 04/02/2024 11:02 AM CDT Oxygen Saturation 92% 04/02/2024 11:02 AM CDT Inhaled Oxygen Concentration - - Weight 69.9 kg (154 lb) 04/02/2024 11:02 AM CDT Height 177 cm (5' 9.69) 02/06/2024 1:43 PM CDT Body Mass Index 22.3 02/06/2024 1:43 PM CDT Plan of Treatment Health Maintenance Due Date Last Done Comments CT Colonography 1959 FIT-DNA 1959 Sigmoidoscopy 1959 iFOBT 1959 Pneumococcal Vaccine: Pediatrics (0 to 5 Years) and At-Risk Patients (6 to 64 Years) (1 of 2 - PCV) 1965 Medicare Annual Wellness Vis it (AWV) 1977 Zoster Vaccines (1 of 2) 2009 COVID-19 Vaccine (1 - 2022-2 4 season) 2024 Influenza Vaccine (#1) 2024 Colonoscopy 04/08/2025 04/08/2015 Colorectal Cancer Screening 04/08/2025 DTaP,Tdap,and Td Vaccines (3 - Td or Tdap) 10/17/2033 10/17/2023, 10/23/2009 HPV Vaccines Aged Out No longer eligi ble based on patient's age to complete this topic Medical Devices Implanted Type Area Patient Relations Representative Device Identifier Shelf Expiration Date Model / Serial / Lot 4.0mm Headed Screw Length 18mm Implanted:Qty: 1 on 10/30/2021 by Yanick Hutchinson DPM at [facility] Screw Left: Foot [id number] / / Care Teams Double Bass Player Relationship Specialty Start Date End Date None, Pcp [address] [facility] [place] [address] PCP - General Prosthodontist/Educator 10/22/21
--- OUTSIDE RECORDS SUMMARY | 2024-05-10 19:48 | XMS_ITS | Encounter Summary ---
Author Organization [facility] Address [address] [place] [address] Care Team Providers Care Documentation Manager Name Role Phone Elsewhere, Pcp Primary Care Provider Unavailabl e Reason for Visit * Reason Onset Date Comments Med Question 01/13/2024 Encounter Details Date Type Department Care Team (Late st Contact Info) Description 01/13/2024 Clinical Communication Department of Family Medicine, [facility], in [place], [place] [address] [place] [phone] Rhett Tompkins, PNerisANeris-C. [address] [place] [address] Med Question Social History Tobacco [...] Cruz R.N. - 01/13/2024 3:37 PM CDT Supervisor Food Checkers And Cashiers relayed message from Rhett to patient: refill of Augmentin sent to pharmacy. He should be seen by his dentist documented in this encounter Plan of Treatment Not on file documented as of this encounter Visit Diagnoses Not on filedocumented in this encounter Additional Health Concerns Assessment Noted Time PHQ-9 Depression Total Score: 4 09/19/19 18 11:05 AM CHIEF ARCHITECT documented as of this encounter Care Teams Documentation Manager Relationship Specialty Start Date End Date Elsewhere, Pcp PCP - General 12/04/21 documented as of this encounter
--- OUTSIDE RECORDS SUMMARY | 2024-05-10 19:48 | XMS_ITS ---
Author Organization [facility] Address [address] [place] [address] Care Team Providers Care Crew Leader Gluing Name Role Phone Unavailable Unavailable Unavailable Surgery Details Not on file Complications Check Surgery Details section. Procedure Estimated Blood Loss Check Surgery Details section. Procedure Findings Check Surgery Details section. Procedure Specimens Taken Check Surgery Details section.
--- OUTSIDE RECORDS SUMMARY | 2024-05-10 19:50 | XMS_ITS | Continuity of Care Document ---
Author Organization [facility] Address [address] [place] [address] Phone Care Team Providers Care Program Advisor Name Role Phone Jama APPIAH, Billy Unavailable Unavailable Advance Directives Directive Yes / No Effective Date File Name No Information Encounters Encounter Description Practice Location Reason(s) For Visit Diagnoses Date Provider Providers Copied on Encounter [facility], [address], [place], [place], [id number], [place] tel:[phone] [facility] - [facility] No Information Jama Cervantes. [facility], [address] [place] [address], [address], [id number], [place]. tel:[phone] Family History Family Member Type Diagnosis Age At Onset No Information Payers Payer name Insurance type Covered constitution party ID Authoriza tion(s) No Information Social [...]
== END 2024-05-10 19:48 | disposition home or self-care (01) ==
LOC: ED 19:47
PROVIDERS: PCP Physician Assistant
DX: Z53.21 Procedure and treatment not carried out due to patient leaving prior to being seen by health care provider (principal)

== ENCOUNTER 2024-05-17 11:03 | Outpatient (CLI) | payer MEDICARE, SELFPAY | END 2024-05-17 11:04 | disposition home or self-care (01) | PROVIDERS: PCP Nurse Practitioner Family; Visit Provider Nurse Practitioner Family | DX: R10.12 Left upper quadrant pain (principal); R19.8 Other specified symptoms and signs involving the digestive system and abdomen | CPT/HCPCS: 80053; 85025 ==

== ENCOUNTER 2024-05-22 14:54 | Outpatient (CLI) | payer MEDICARE, SELFPAY | END 2024-05-22 14:55 | disposition home or self-care (01) | LOC: KYNREF 16:13 | PROVIDERS: PCP Nurse Practitioner Family; Visit Provider Nurse Practitioner Family | DX: R63.4 Abnormal weight loss (principal) | CPT/HCPCS: 84443 ==

== ENCOUNTER 2024-05-23 16:12 | Outpatient (CLI) | payer MEDICARE, SELFPAY ==
--- NOTE | 2024-05-23 16:45 | CRLHL7_ITS ---
For Patients: As a result of the Century Cures Act, medical imaging exams and procedure reports are released immediately into your electronic medical record. You may view this report before your referring provider. If you have questions, please contact your health care provider. Indication: Abnormal weight loss Technique: CT Chest/Abd/Pelvis W/ 81CC ISOVUE [id number] Please note that all CT scans at this facility use dose modulation, iterative reconstruction, and/or weight-based dosing when appropriate to reduce radiation dose to as low as reasonably achievable. Comparison: No prior CT scans. Chest x-ray 05/17/2024. Findings: In the chest, AP window adenopathy noted with lymph node measuring 1.9 cm. Left hilar adenopathy measuring 1.9 cm. Visualized thyroid is within normal limits. The axillary lymph nodes are normal. Normal right hilar lymph nodes. Spiculated nodule within the anterior left upper lobe measuring 1.4 x 1.6 cm. Possible additional nodular density within the left lower lobe measures 7.7 millimeters. Emphysema. 6 millimeter noncalcified nodule right lower lobe. Peripheral fibrotic changes bilaterally. Linear scarring right lower lobe. No pleural effusion. Old bilateral rib fracture deformities. In the abdomen, simple cyst within the left hepatic lobe measures 1.2 cm. The spleen is normal. No adrenal nodule. Kidneys are within normal limits. Normal pancreas. The gallbladder is nondistended. No biliary obstruction. Atherosclerotic changes. No aneurysm. In the pelvis, the bladder is normal. The prostate is mildly prominent. No bowel obstruction, free air, free fluid or abscess. Multilevel degenerative disc disease. No vertebral body compression fracture. Impression: 1.4 x 1.6 cm spiculated left upper lobe nodule with AP window and left hilar adenopathy suspicious for malignancy. CT PET recommended. Please note that all CT scans at this facility use dose modulation, iterative reconstruction, and/or weight-based dosing when appropriate to reduce radiation dose to as low as reasonably achievable. Dictated by Reggie Bowens MD @ 05/25/2024 10:47:32 AM (Electronically Signed)
== END 2024-05-23 16:13 | disposition home or self-care (01) ==
LOC: CT 16:12
PROVIDERS: PCP Nurse Practitioner Family; Visit Provider Nurse Practitioner Family
DX: R63.4 Abnormal weight loss (principal); R91.8 Other nonspecific abnormal finding of lung field; F17.200 Nicotine dependence, unspecified, uncomplicated; R10.9 Unspecified abdominal pain; R19.8 Other specified symptoms and signs involving the digestive system and abdomen
CPT/HCPCS: 71260; 74177; Q9967

== ENCOUNTER 2024-06-02 16:55 | Emergency (ER) | payer MEDICARE, SELFPAY ==
[2024-06-02 16:59] VITALS: BP 155/74; PULSE 78; RESP 18; TEMP 37.1; O2SAT 98; BMI 22.3
--- OUTSIDE RECORDS SUMMARY | 2024-06-02 17:00 | XMS_ITS | Referral Summary ---
Author Organization [facility] Address [address] [place] [address] Care Team Providers Care Cra Name Role Phone Elsewhere, Pcp Primary Care Provider Unavailabl e Source Comments Patient records contain information from all sites at [facility]. For routine questions regarding patient records, call [phone] during business hours, M-F 8:00 AM - 5:00 PM Central Time. Record requests for emergency care only can be directed to [phone] at any time.[facility] Encounters Date Type Department Care Team Description 06/01/2024 8:56 PM CDT - 06/01/2024 11:13 PM CDT Emergency [facility] Emergency Department [address] [place] [address] Discharge Disposition: Left Against Medical Advice or Discontinued Care 05/31/2024 Documentation Division of Pulmonary Medicine in [place], [place] [address] [place] [address] Pardeep Bartholomew Jr., M.D. 05/29/2024 [facility] [address] [place] [address] Maureen Vasques, C.N.P. 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 Ruiz ( [place]) around ??2009?? Chronic, continued pain. Cymbalta no [...] Sign Reading Time Taken Comments Blood Pressure 142/83 06/01/2024 8:58 PM CDT Pulse 65 06/01/2024 8:58 PM CDT Temperature 36.7 ??C (98 ??F) 06/01/2024 8:58 PM CDT Respiratory Rate 19 06/01/2024 8:58 PM CDT Oxygen Saturation 95% 06/01/2024 8:58 PM CDT Inhaled Oxygen Concentration - - Weight 76.6 kg (168 lb 14 oz) 10/17/2023 10:45 A M VEST TAILOR Height 179 cm (5' 10.47) 10/17/2023 10:45 AM CS T Body Mass Index 23.91 10/17/2023 10:45 AM VEST TAILOR Plan of Treatment Upcoming Encounters Date Type Department Care Team (Late st Contact Info) Description 06/07/2024 7:00 AM CDT Diagnostic Division of Pulmonary Medicine in [place], [place] [address] [place] [phone] Pardeep Bartholomew Jr., M.D. [address] [place] [phone] 06/07/2024 8:10 AM CDT Appointment Department of Laboratory Medicine and Pathology, [facility] in [place], [place] [address] [place] [address] Pardeep Bartholomew Jr., M.D. [address] [place] [phone] 06/07/2024 9:00 AM CDT Comprehensive Visit Division of Pulmonary Medicine in [place], [place] [address] [place] [phone] Carolyn Murray M.D. [address] [place] [address] [place] [address] Procedures Procedure Name Priority Date/Time Associated Diagnosis Comments OUTSIDE CT BODY Routine 05/23/2024 4:45 PM CDT OUTSIDE DX CHEST Routine 05/17/2024 11:2 0 AM CDT OUTSIDE DX GENERAL Routine 05/17/2024 11 :15 AM CDT LIPID PANEL, S Routine 10/17/2023 11:55 AM VEST TAILOR Encounter For Screening For Cardiovascular Disorders COMPREHENSIVE METABOLIC PANEL, S/P Routine 10/17/2023 11:55 AM VEST TAILOR Onychomycosis COLONOSCOPY Routine 04/08/2015 from Last 3 Months or Most Recently Relevant to Health Maintenance Results * CT chest abdomen pelv w con-Outside CT Body (05/23/2024 4:45 PM CDT) Narrative [facility] - 05/29/2024 9:53 AM CDT This order has been created and auto-finalized to support the import of outside images. If available, original interpretation can be found on the Media Tab in Chart Review, in Document Viewer, as an image in QREADS or as an Addendum. If a re-interpretation or overread is required please follow defined workflow.?? Provider Not In System IMG CT PROCEDURES [facility] NA * XR chest 2V-Outside Chest Xray (05/17/2024 11:20 AM CDT) Narrative [facility] - 05/29/2024 9:43 AM CDT This order has been created and auto-finalized to support the import of outside images. If available, original interpretation can be found on the Media Tab in Chart Review, in Document Viewer, as an image in QREADS or as an Addendum. If a re-interpretation or overread is required please follow defined workflow.?? Provider Not In System [facility]ING PROCEDURES Performing Organization Address City/[facility]/ZIP Co de Phone Number II NA * XR abdomen min 2V-Outside Gen Dx Stdy (05/17/2024 11:15 AM CDT) Narrative [facility] - 05/29/2024 9:43 AM CDT This order has been created and auto-finalized to support the import of outside images. If available, original interpretation can be found on the Media Tab in Chart Review, in Document Viewer, as an image in QREADS or as an Addendum. If a re-interpretation or overread is required please follow defined workflow.?? Provider Not In System [facility] PROCEDURES Performing Organization Address [facility] Co de Phone Number JOSE LUIS NA * Lipid Panel (10/17/2023 11:55 AM VEST TAILOR) Triglycerides 71 mg/dL 10/17/2023 2:19 PM VEST TAILOR OWAT Comment: ----REFERENCE VALUE---- Normal: <150 mg/dL Borderline High: 150-199 mg/dL High: 200-499 mg/dL Very High: > or =500 mg/dL Cholesterol, Total 155 mg/dL 2023 2:19 PM VEST TAILOR OWAT Comment: ----REFERENCE VALUE---- Desirable: < 200 mg/dL Borderline High: 200 - 239 mg/dL High: > or = 240 mg/dL Cholesterol, LDL, Calculated 81 mg/dL 10/17/2023 2:19 PM VEST TAILOR OWAT Comment: ----REFERENCE VALUE---- Desirable: <100 mg/dL Above Desirable: 100-129 mg/dL Borderline High: 130-159 mg/dL High: 160-189 mg/dL Very High: >=190 mg/dL ----ADDITIONAL INFORMATION---- LDL cholesterol calculated using the Borrero/NIH equation. Cholesterol, HDL 60 >=40 mg/dL 10/17/19 2:19 PM VEST TAILOR OWAT Cholesterol, Non-HDL, Calculated 95 mg/dL 10/17/2023 2:19 PM VEST TAILOR OWAT Comment: ----REFERENCE VALUE---- Desirable: <130 mg/dL Above Desirable: 130-159 mg/dL Borderline High: 160-189 mg/dL High: 190-219 mg/dL Very High: > or =220 mg/dL Fasting (8 HR or more) Yes 10/17/2023 1:32 PM VEST TAILOR OWAT Blood (Blood, Venous) 10/17/2023 11:55 AM VEST TAILOR 10/17/2023 1:32 PM VEST TAILOR Rhett Tompkins P.A.-C. LAB BLOOD ADD- ON [facility] [address] [place] [address], [facility] OWAT [facility] in [place] [address] [place] [address] * Comprehensive Metabolic Panel (10/17/2023 11:55 AM VEST TAILOR) Potassium, P 4.4 3.6 - 5.2 mmol/L 10/17/2023 2:19 PM VEST TAILOR OWAT Sodium, P 142 135 - 145 mmol/L 10/17/2023 2:19 PM VEST TAILOR OWAT Chloride, P 104 98 - 107 mmol/L 10/17/2023 2:19 PM VEST TAILOR OWAT Bicarbonate, P 28 22 - 29 mmol/L 10/17/2023 2:19 PM VEST TAILOR OWAT Anion Gap, P 10 7 - 15 10/17/2023 2:19 PM VEST TAILOR OWAT BUN (Blood Urea Nitrogen), P 17 8 - 24 mg/dL 10/17/2023 2:19 PM VEST TAILOR OWAT Creatinine 0.76 0.74 - 1.35 mg/dL 10/17/2023 2:19 PM VEST TAILOR OWAT Estimated GFR (eGFR) >90 >=60 mL/min/BS A 10/17/2023 2:19 PM VEST TAILOR OWAT Comment: Estimated GFR calculated using the 2020 CKD_EPI creatinine equation. Calcium, Total, P 9.5 8.8 - 10.2 mg/dL 10/17/2023 2:19 PM VEST TAILOR OWAT Glucose, P 120 70 - 140 mg/dL 10/17/2023 2:19 PM VEST TAILOR OWAT Protein, Total, P 7.5 6.3 - 7.9 g/dL 10/17/2023 2:19 PM VEST TAILOR OWAT Albumin, P 4.5 3.5 - 5.0 g/dL 10/17/2023 2:19 PM VEST TAILOR OWAT Aspartate Aminotransferase (AST), P 31 8 - 48 U/L 10/17/2023 2:19 PM VEST TAILOR OWAT Alkaline Phosphatase, P 77 40 - 129 U/L 10/17/2023 2:19 PM VEST TAILOR OWAT Alanine Aminotransferase (ALT), P 21 7 - 55 U/L 10/17/2023 2:19 PM VEST TAILOR OWAT Bilirubin, Total, P 0.5 0.0 - 1.2 mg/dL 10/17/2023 2:19 PM VEST TAILOR OWAT Blood (Blood, Venous) 10/17/2023 11:55 AM VEST TAILOR 10/17/2023 1:32 PM VEST TAILOR Marlyn Cintron P.A.-C. LAB BLOOD ADD[facility] [address] [place] [address], [facility] OWAT [facility] in [place] [address] [place] [address] * Colonoscopy (04/08/2015) EXT Colonoscopy Abnormal - See Scanned Report for Details Normal - See Scanned Report for Details, HIMS - Report Received and Scanned Comment:see care everywhere for result details Historical Provider GI PROCEDURE ORDERAB LES from Last 3 Months or Most Recently Relevant to Health Maintenance Care Teams Cra Relationship Specialty Start Date End Date Elsewhere, Pcp PCP - General 12/04/21
--- OUTSIDE RECORDS SUMMARY | 2024-06-02 17:00 | XMS_ITS ---
Author Organization [facility] Address [address] [place] [address] Care Team Providers Care Supervisor Body Assembly Name Role Phone Unavailable Unavailable Unavailable Surgery Details Not on file Complications Check Surgery Details section. Procedure Estimated Blood Loss Check Surgery Details section. Procedure Findings Check Surgery Details section. Procedure Specimens Taken Check Surgery Details section.
--- OUTSIDE RECORDS SUMMARY | 2024-06-02 17:00 | XMS_ITS | Clinical Summary ---
Author Organization [facility] Address [address] [place] [address] Care Team Providers Care Processing Specialist Name Role Phone None, Pcp Primary Care [...] rinses. We also discussed consistent use of [id number]-fvewisr medications in the meantime. Encounters Date Type Department Care Team Description 04/02/2024 11:00 AM CDT Office Visit [address] [address] Shay Cohen, DNP, BLOCK CABLEMAN, APPRENTICE EMBALMER Nose septum deviation (Primary Dx); Nasal drainage from Last 3 Months Immunizations Name Administration [...] re latives? Once a week 02/06/2024 Attends Faith Services Not on file 02/05 Do you belong to any clubs o r organizations such as islam groups, unions, fraternal or athletic groups, or [...] Date Recorded PHQ-9 Total Score 0 02/06/2024 [facility] of Occupat ional Health - Occupational Stress [...] any time in the past 12 m [facility], were you homeless or living in [...] of 2) 2009 COVID-19 Vaccine (1 - 2023-2 5 season) 2024 Influenza Vaccine (#1) 2024 Colonoscopy 04/08/2025 04/08/2015 Colorectal Cancer Screening 04/08/2025 DTaP,Tdap,and Td Vaccines (3 - Td or Tdap) 10/17/2033 10/17/2023, 10/23/2009 HPV Vaccines Aged Out No longer eligi ble based on patient's age to complete this topic Medical Devices Implanted Type Area Policy Change Clerks Supervisor Device Identifier Shelf Expiration Date Model / Serial / Lot 4.0mm Headed Screw Length 18mm Implanted:Qty: 1 on 10/30/2021 by Yanick Hutchinson DPM at [facility] Screw Left: Foot [id number] / / Care Teams Processing Specialist Relationship Specialty Start Date End Date None, Pcp [address] [place] [place] [address] PCP - General Diver Tender 10/22/21
--- OUTSIDE RECORDS SUMMARY | 2024-06-02 17:00 | XMS_ITS | Clinical Summary ---
Author Organization [facility] Address [place], [place] [address] Care Team Providers Care Building Energy Consultant Name Role Phone Nonstaff, Doctor Unavailable Unavailable Rhett Tompkins Primary Care Provider [phone] Allergies Active Allergy Reactions Criticality Noted Date Comments Naproxen GI Upset 02/18/2015 Patient reports vomiting blood Medications Medication Sig Dispensed Refills Start Date End Date Status ibuprofen (ADVIL; MOTRIN) 600 mg tabletIndications:TMJ syndrome Take 1 Tablet (600 mg) by mouth every 6 hours if needed for Pain. Maximum of 3200 mg in 24 hours. 30 Tablet 06/08/2023 Active famotidine (PEPCID) 20 mg tabletIndications:Al d impaction of esophagus, initial encounter Take 1 Tablet (20 mg) by mouth two times daily. 30 Tablet 10/24/2023 Active sucralfate (CARAFATE) 1 gram tabletIndications:Al d impaction of esophagus, initial encounter Take 1 Tablet (1 g) by mouth four times daily before meals and at bedtime. 60 Tablet 10/24/2023 Active Active Problems Problem Noted Date Diagnosed Date Sensorineural hearing loss, bilateral 08/11/2022 Chronic neck pain 06/11/2015 Overview (06/11/2015): S/P Surgery 2004. 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 Chronic, continued pain. Cymbalta no benefit at 30mg. June 2015: Referral to Spinal Surgeon for consult Lumbar disc herniation 05/08/2015 Overview (06/11/2015): ~ April 2015:L5-S1 TF epidural steroid injection by Dr. Thomason with no benefit. June 2015: Referral to Spinal Surgeon for consult Adenomatous colon polyp 04/09/2015 Overview (04/09/2015): Colonoscopy 04/2015 polyp repeat in 5 years Tobacco use 12/24/2014 Encounters Date Type Department Care Team Description 05/14/2024 7:35 PM CDT Ancillary Procedure [facility] [address] [place] [address] 05/14/2024 6:00 PM CDT Office Visit [facility] [address] [place] [address] Milton Youngblood PA Chest Wall Pain 05/14/2024 Travel 05/07/2024 6:33 PM CDT - 05/07/2024 7:18 PM CDT Emergency [facility] [address] [place] [address] Elsa Canada MD Nasal disorder (Primary Dx) Discharge Disposition: Home Self Care 05/07/2024 Travel 04/05/2024 6:20 PM CDT Office Visit [facility] [address] [place] [address] Glenis Muller, COMMUNICATIONS ADMINISTRATOR Nose Problem (Sores in nose- painful. First [...] Sign Reading Time Taken Comments Blood Pressure 122/78 05/14/2024 7:30 PM CDT Pulse 78 05/14/2024 7:30 PM CDT Temperature 36.4 ??C (97.5 ??F) 05/14/2024 7:30 PM CD T Respiratory Rate 18 05/14/2024 7:30 PM CDT Oxygen Saturation 94% 05/14/2024 7:30 PM CDT Inhaled Oxygen Concentration - - Weight 73 kg (161 lb) 05/14/2024 7:30 PM CDT Height 181.6 cm (5' 11.5) 05/07/2024 6:47 PM CD T Body Mass Index 22.14 05/07/2024 6:47 PM CDT Plan of Treatment [...] age 74 04/08/2020 04/08/2015 COVID-19 vaccine series ( season) 4 Influenza for age 50-64 05/06/2024 Medical Devices Implanted Type Area Utilities Ground Worker Device Identifier Shelf Expiration Date Model / Serial / Lot Mesh Ventral 3x6in Bard Soft - [id number] Implanted:Qty: 2 on 12/14/2017 by Victorino Sanders MD at [facility] Bilateral: Inguinal [employer] 09/01/2022 [id number] / / [id number] Description:BARD Soft Mesh, Bilateral Inguinal Procedures Procedure Name Priority Date/Time Associated Diagnosis Comments XR RIBS BILATERAL AND CHEST MINIMUM 4 VIEWS STAT 05/14/2024 7:43 PM CDT Pain from Last 3 Months Results * XR RIBS BILATERAL AND CHEST MINIMUM 4 VIEWS (05/14/2024 7:43 PM CDT) Anatomical Region Laterality Modality RIBS, CHEST, RIBS L, RIBS R Comp uted Radiography 05/14/2024 8:07 PM CDT Narrative 05/14/2024 8:07 PM CDT For Patients: ??As a result of the Cures Act, medical imaging exams and procedure reports are released immediately into your electronic medical record. ??You may view this report before your referring provider. ??If you have questions, please contact your health care provider. INDICATION: Pain. TECHNIQUE: Chest and bilateral ribs 5 views. COMPARISON: 08/18/2023. FINDINGS: Cardiovascular and mediastinum: ??Heart size and vasculature are normal in caliber and appearance. ??Mediastinum is within normal limits. ?? Lungs and pleural spaces: ??Lungs are clear. ??No sign of infiltrate or mass. ??No sign of pleural effusion. ??No pneumothorax. Lung hyperinflation consistent with COPD. Bones and soft tissues: ??There are multiple old left-sided rib fractures. No convincing evidence for acute fracture. No suspicious bone lesion or other specific finding to explain pain. Dictated by Nathaniel Pereira MD @ 05/14/2024 8:07:56 PM (Electronically Signed) Procedure Note Nathaniel Pereira MD - 05/14/2024 For Patients: As a result of the s Act, medical imagingexams and procedure reports are released immediately into your electronicmedical record. You may view this report before your referring provider.If you have questions, please contact your health care provider. INDICATION: Pain. TECHNIQUE: Chest and bilateral ribs 5 views. COMPARISON: 08/18/2023. FINDINGS: Cardiovascular and mediastinum: Heart size and vasculature are normal incaliber and appearance. Mediastinum is within normal limits. Lungs and pleural spaces: Lungs are clear. No sign of infiltrate ormass. No sign of pleural effusion. No pneumothorax. Lung hyperinflationconsistent with COPD. Bones and soft tissues: There are multiple old left-sided rib fractures.No convincing evidence for acute fracture. No suspicious bone lesion orother specific finding to explain pain. Dictated by Nathaniel Pereira MD @ 05/14/2024 8:07:56 PM (Electronically Signed) Heide Candelario NP GENERAL IMAGING from Last 3 Months Advance Directives * Full Code (Latest Code Status on File) Date Activated Date Inactivated Comments 10/27/2023 12:31 PM 10/27/2023 7:12 PM Question Answer Comments Code Status Discussion: Reviewed Preferences * Full Code Date Activated Date Inactivated Comments 12/14/2017 7:02 AM 12/14/2017 3:36 PM Care Teams Building Energy Consultant Relationship Specialty Start Date End Date Rhett Tompkins PA [address] [place] [address] PCP - General Physician Radiation Therapist 06/08/23 Nonstaff, Doctor NON STAFF DOCTOR 12/19/13
--- OUTSIDE RECORDS SUMMARY | 2024-06-02 17:00 | XMS_ITS | Clinical Summary ---
Author Organization [facility] Address [address] [place] [address] Care Team Providers Care Internet Marketing Consultant Name Role Phone Elsewhere, Pcp Primary Care Provider Unavailabl e Source Comments Patient records contain information from all sites at [facility]. For routine questions regarding patient records, call [phone] during business hours, M-F 8:00 AM - 5:00 PM Central Time. 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 Chronic, continued pain. Cymbalta no [...] CDT - 06/01/2024 11:13 PM CDT Emergency [facility] Emergency Department [address] [place] [address] Discharge Disposition: Left Against Medical Advice or Discontinued Care 05/31/2024 Documentation Division of Pulmonary Medicine in [place], [place] [address] [place] [address] Pardeep Bartholomew Jr., M.D. 05/29/2024 [facility] [address] [place] [address] Maureen Vasques, C.N.P. Abnormal Findings On Diagnostic Imaging Of Other Specified Body Structures (Primary Dx); Nodules Pulmonary Multiple from Last 3 Months Immunizations Name Administration [...] lb 14 oz) 10/17/2023 10:45 A M BOX OFFICE CLERK Height 179 cm (5' 10.47) 10/17/2023 10:45 AM CS T Body Mass Index 23.91 10/17/2023 10:45 AM BOX OFFICE CLERK Plan of Treatment Upcoming Encounters Date Type Department Care Team (Late st Contact Info) Description 06/07/2024 7:00 AM CDT Diagnostic Division of Pulmonary Medicine in [place], [place] [address] [place] [phone] Pardeep Bartholomew Jr., M.D. [address] [place] [phone] 06/07/2024 8:10 AM CDT Appointment Department of Laboratory Medicine and Pathology, [facility] in [place], [place] [address] [place] [phone] Pardeep Bartholomew Jr., M.D. [address] [place] [phone] 06/07/2024 9:00 AM CDT Comprehensive Visit Division of Pulmonary Medicine in [place], [place] [address] [place] [phone] Carolyn Murray M.D. [address] [place] [address] [place] [phone] Health Maintenance Due Date Last Done Comments CT Colonography 1959 Cologuard 1959 HIV Screening 1959 Hepatitis C Screening 1959 Tobacco Cessation counseling 1959 Pneumococcal vaccine (0-64 y ears) (1 of 2 - PCV) 1965 Zoster Vaccines (1 of 2) 2009 Colonoscopy 04/08/2020 04/08/2015, 0809/2014, 02/17/2015 Colorectal Cancer Surveillance 04/08/2020 COVID-19 Vaccine ( - 2023-2 5 season) 2024 Influenza Vaccine (#1) 2024 Creatinine Level (Kidney Fun ction Test) 10/17/2024 10/17/2023, 06/06/2023, 05/02/2023, Additional history exists Potassium Level 10/17/2024 10/17/2023, 100 10/2022, 05/02/2023, Additional history exists Sodium Level 10/17/2024 10/17/2023, 10/0 10/2022, 05/02/2023, Additional history exists Fasting Glucose [...] LIPID PANEL, S Routine 10/17/2023 11:55 AM BOX OFFICE CLERK Encounter For Screening For Cardiovascular Disorders COMPREHENSIVE METABOLIC PANEL, S/P Routine 10/17/2023 11:55 AM BOX OFFICE CLERK Onychomycosis COLONOSCOPY Routine 04/08/2015 from Last 3 Months or Most Recently Relevant to Health Maintenance Results * CT chest abdomen pelv w con-Outside CT Body (05/23/2024 4:45 PM CDT) Narrative [facility] - 05/29/2024 9:53 AM CDT This order has been created and auto-finalized to support the import of outside images. If available, original interpretation can be found on the Media Tab in Chart Review, in Document Viewer, as an image in QREADS or as an Addendum. If a re-interpretation or overread is required please follow defined workflow.?? Provider Not In System IMG CT PROCEDURES Performing Organization Address [facility] de Phone Number IIMS NA * XR chest 2V-Outside Chest Xray (05/17/2024 11:20 AM CDT) Narrative [facility] - 05/29/2024 9:43 AM CDT This order has been created and auto-finalized to support the import of outside images. If available, original interpretation can be found on the Media Tab in Chart Review, in Document Viewer, as an image in QREADS or as an Addendum. If a re-interpretation or overread is required please follow defined workflow.?? Provider Not In System IMG DIAGNOSTIC IM AGING PROCEDURES Performing Organization Address [facility] Phone Number IIMS NA * XR abdomen min 2V-Outside Gen Dx Stdy (05/17/2024 11:15 AM CDT) Narrative [facility] - 05/29/2024 9:43 AM CDT This order has been created and auto-finalized to support the import of outside images. If available, original interpretation can be found on the Media Tab in Chart Review, in Document Viewer, as an image in QREADS or as an Addendum. If a re-interpretation or overread is required please follow defined workflow.?? Provider Not In System IMG DIAGNOSTIC IM AGING PROCEDURES IIMS NA * Lipid Panel (10/17/2023 11:55 AM BOX OFFICE CLERK) Triglycerides 71 mg/dL 10/17/2023 2:19 PM BOX OFFICE CLERK OWAT Comment: ----REFERENCE VALUE---- Normal: <150 mg/dL Borderline High: 150-199 mg/dL High: 200-499 mg/dL Very High: > or =500 mg/dL Cholesterol, Total 155 mg/dL 2023 2:19 PM BOX OFFICE CLERK OWAT Comment: ----REFERENCE VALUE---- Desirable: < 200 mg/dL Borderline High: 200 - 239 mg/dL High: > or = 240 mg/dL Cholesterol, LDL, Calculated 81 mg/dL 10/17/2023 2:19 PM BOX OFFICE CLERK OWAT Comment: ----REFERENCE VALUE---- Desirable: <100 mg/dL Above Desirable: 100-129 mg/dL Borderline High: 130-159 mg/dL High: 160-189 mg/dL Very High: >=190 mg/dL ----ADDITIONAL INFORMATION---- LDL cholesterol calculated using the Borrero/NIH equation. Cholesterol, HDL 60 >=40 mg/dL 10/17/19 2:19 PM BOX OFFICE CLERK OWAT Cholesterol, Non-HDL, Calculated 95 mg/dL 10/17/2023 2:19 PM BOX OFFICE CLERK OWAT Comment: ----REFERENCE VALUE---- Desirable: <130 mg/dL Above Desirable: 130-159 mg/dL Borderline High: 160-189 mg/dL High: 190-219 mg/dL Very High: > or =220 mg/dL Fasting (8 HR or more) Yes 10/17/2023 1:32 PM BOX OFFICE CLERK OWAT Blood (Blood, Venous) 10/17/2023 11:55 AM BOX OFFICE CLERK 10/17/2023 1:32 PM BOX OFFICE CLERK Rhett LeeC. LAB BLOOD ADD- ON [facility] [address] [place] [address], [place] OWAT [facility] in [place] [address] [place] [address] * Comprehensive Metabolic Panel (10/17/2023 11:55 AM BOX OFFICE CLERK) Potassium, P 4.4 3.6 - 5.2 mmol/L 10/17/2023 2:19 PM BOX OFFICE CLERK OWAT Sodium, P 142 135 - 145 mmol/L 10/17/2023 2:19 PM BOX OFFICE CLERK OWAT Chloride, P 104 98 - 107 mmol/L 10/17/2023 2:19 PM BOX OFFICE CLERK OWAT Bicarbonate, P 28 22 - 29 mmol/L 10/17/2023 2:19 PM BOX OFFICE CLERK OWAT Anion Gap, P 10 7 - 15 10/17/2023 2:19 PM BOX OFFICE CLERK OWAT BUN (Blood Urea Nitrogen), P 17 8 - 24 mg/dL 10/17/2023 2:19 PM BOX OFFICE CLERK OWAT Creatinine 0.76 0.74 - 1.35 mg/dL 10/17/2023 2:19 PM BOX OFFICE CLERK OWAT Estimated GFR (eGFR) >90 >=60 mL/min/BS A 10/17/2023 2:19 PM BOX OFFICE CLERK OWAT Comment: Estimated GFR calculated using the 2020 CKD_EPI creatinine equation. Calcium, Total, P 9.5 8.8 - 10.2 mg/dL 10/17/2023 2:19 PM BOX OFFICE CLERK OWAT Glucose, P 120 70 - 140 mg/dL 10/17/2023 2:19 PM BOX OFFICE CLERK OWAT Protein, Total, P 7.5 6.3 - 7.9 g/dL 10/17/2023 2:19 PM BOX OFFICE CLERK OWAT Albumin, P 4.5 3.5 - 5.0 g/dL 10/17/2023 2:19 PM BOX OFFICE CLERK OWAT Aspartate Aminotransferase (AST), P 31 8 - 48 U/L 10/17/2023 2:19 PM BOX OFFICE CLERK OWAT Alkaline Phosphatase, P 77 40 - 129 U/L 10/17/2023 2:19 PM BOX OFFICE CLERK OWAT Alanine Aminotransferase (ALT), P 21 7 - 55 U/L 10/17/2023 2:19 PM BOX OFFICE CLERK OWAT Bilirubin, Total, P 0.5 0.0 - 1.2 mg/dL 10/17/2023 2:19 PM BOX OFFICE CLERK OWAT Blood (Blood, Venous) 10/17/2023 11:55 AM BOX OFFICE CLERK 10/17/2023 1:32 PM BOX OFFICE CLERK Marlyn Cintron P.A.-C. LAB BLOOD ADD-ON [facility] [address] [place] [address], [place] OWAT [facility] in [place] [address] [place] [address] * Colonoscopy (04/08/2015) EXT Colonoscopy Abnormal - See Scanned Report for Details Normal - See Scanned Report for Details, HIMS - Report Received and Scanned Comment:see care everywhere for result details Historical Provider GI PROCEDURE ORDERAB LES from Last 3 Months or Most Recently Relevant to Health Maintenance Care Teams Internet Marketing Consultant Relationship Specialty Start Date End Date Elsewhere, Pcp PCP - General 12/04/21
--- OUTSIDE RECORDS SUMMARY | 2024-06-02 17:00 | XMS_ITS | Encounter Summary ---
Author Organization [facility] Address [address] [place] [address] Care Team Providers Care Physicist Light And Optics Name Role Phone Elsewhere, Pcp Primary Care Provider Unavailabl e Reason for Visit * Reason Comments Leg Pain Encounter Details Date Type Department Care Team (Late st Contact Info) Description 06/01/2024 8:56 PM CDT - 06/01/2024 11:13 PM CDT Emergency [facility] Emergency Department [address] [place] [phone] Discharge Disposition: Left Against Medical Advice or Discontinued Care Social History Tobacco Use Types Packs/Day Years [...] CDT Inhaled Oxygen Concentration - - Weight - - Height - - Body Mass Index - - documented in this encounter Medications at Time of Discharge Medication Sig Dispensed Refills Start Date End Date azelastine (ASTELIN) 137 mcg/spray (0.1 %) nasal spray Administer 2 sprays into each nostril 2 (two) times a day. 10/29/2023 famotidine (PEPCID) 20 mg tablet Take 1 tablet by mouth 2 (two) times a day. 10/24/2023 ibuprofen (MOTRIN) 600 mg tablet Take 600 mg by mouth every 6 (six) hours as needed. 06/08/2023 lisinopril-hydroCHLORO thiazide (PRINZIDE,ZESTORETIC) 10-12.5 mg per tablet Take 1 tablet by mouth daily. 90 tablet 3 10/26/2023 10/25/2024 sucralfate (CARAFATE) 1 gram tablet Take 1 g by mouth. 10/24/2023 terbinafine (LamISIL) 250 mg tablet Take 1 tablet (250 mg total) by mouth daily. 84 tablet 06/07/2023 documented as of this encounter ED Notes * Valentina Bah R.N. - 06/01/2024 8:57 PM CDT Pt brought in by EMS with c/o bilateral leg pain that started yesterday. He describes it as tingly and burning. Pt is able to ambulate without difficulty. Pt did recently get diagnosed with a nodule on his lung he has follow up appointments for later next week. Valentina Bah R.N. 06/01/242057 documented in this encounter Plan of Treatment Upcoming Encounters Date Type Department Care Team (Late st Contact Info) Description 06/07/2024 7:00 AM CDT Diagnostic Division of Pulmonary Medicine in [place], [place] 200 [place] [address] Pardeep Bartholomew Jr., M.D. 200 [place] [address] 06/07/2024 8:10 AM CDT Appointment Department of Laboratory Medicine and Pathology, [facility], in [place], [place] [address] [place] [phone] Pardeep Bartholomew Jr., M.D. [address] [place] [phone] 06/07/2024 9:00 AM CDT Comprehensive Visit Division of Pulmonary Medicine in [place], [place] [address] [place] [phone] Carolyn Murray M.D. [address] [place] [phone] documented as of this encounter Visit Diagnoses Not on filedocumented in this encounter Additional Health Concerns Assessment Noted Time PHQ-9 Depression Total Score: 4 09/19/19 18 11:05 AM BILL SORTER documented as of this encounter Care Teams Physicist Light And Optics Relationship Specialty Start Date End Date Elsewhere, Pcp PCP - General 12/04/21 documented as of this encounter
--- OUTSIDE RECORDS SUMMARY | 2024-06-02 17:00 | XMS_ITS | Encounter Summary ---
Author Organization [facility] er Address [address] [place] [address] Care Team Providers Care Intelligence Officer Name Role Phone None, Pcp Primary Care Provider Unavailabl e Reason for Visit * Reason Comments Nasal Congestion Follow-up from previ ous visit unresolved. Encounter Details Date Type Department Care Team ([facility] st Contact Info) Description 04/02/2024 11:00 AM CDT Office Visit [address] [address] Shay Cohen, DNP, SYSTEMS DEVELOPER, DIRECTOR OF SUPPLY CHAIN [address] [place] [phone] Nose septum deviation (Primary Dx); Nasal drainage [...] re latives? Once a week 02/06/2024 Attends [employer] Not on file 02/05 Do you belong to any clubs o r organizations such as lutheran groups, unions, fraternal or athletic groups, or [...] Date Recorded PHQ-9 Total Score 0 02/06/2024 [facility] - [facility]ational Stress Questionnaire Answer Date Recorded [...] any time in the past 12 m [facility], were you homeless or living in a half-way (including now)? No 02/06/2024 Sex and Gender [...] Please reach out to your ENT in [place] at [facility]. Please provide usan update after you get [...] with an ear nose throat physician at [facility] in [place], [place]. He states they performed a procedure [...] significant facial deformities or scars. Mouth/Throat: Lips: Hedrick. Mouth: Mucous membranes are moist. Pharynx: Oropharynx [...] rinses. We also discussed consistent use of yudz-rtr-hdtdzvv medications in the meantime. Other Visit Diagnoses [...] rinses. We also discussed consistent use of lbsl-zjw-fwatkyk medications in the meantime. documented in this encounter Plan of Treatment Not on file documented as of this encounter Visit Diagnoses Diagnosis Nose septum deviation- Primary Deviated nasal septum Nasal drainage documented in this encounter Care Teams Intelligence Officer Relationship Specialty Start Date End Date None, Pcp [address] [place] [phone] PCP - General Calender Operator 10/22/21 documented as of this encounter
--- OUTSIDE RECORDS SUMMARY | 2024-06-02 17:00 | XMS_ITS | Encounter Summary ---
Author Organization [facility] er Address [address] [place] [address] Care Team Providers Care Mohel Name Role Phone None, Pcp Primary Care Provider Unavailabl e Encounter Details Date Type Department Care Team (Late st Contact Info) Description 02/14/2024 Telephone [place] [address] [place] [address] None, Pcp [address] [place] [address] Social History Tobacco Use Types Packs/Day Years [...] re latives? Once a week 02/06/2024 Attends [employer] Not on file 02/05 Do you [...] Recorded PHQ-9 Total Score 0 02/06/2024 [facility] Occupat ional Health - Occupational Stress [...] any time in the past 12 m [facility], were you homeless or living in a prison (including now)? No 02/06/2024 Sex and Gender [...] has an appointment with [facility] [place] next week. Will be in touch at local [facility] clinic if needed for pre-ops, etc. * [...] on filedocumented in this encounter Care Teams Mohel Relationship Specialty Start Date End Date None, Pcp [address] [facility] [place] [phone] PCP - General Nightman 10/22/21 documented as of this encounter
--- OUTSIDE RECORDS SUMMARY | 2024-06-02 17:00 | XMS_ITS | Encounter Summary ---
Author Organization [facility] er Address [address] [place] [address] Care Team Providers Care Education Program Manager Name Role Phone None, Pcp Primary Care Provider Unavailabl e Reason for Visit * Reason Comments Med Refill Encounter Details Date Type Department Care Team (Late st Contact Info) Description 02/15/2024 Refill [place] [address] [place] [address] Shay Cohen, DNP, TUNA PURSE SEINER, WHANAU SUPPORT WORKER [address] [facility] [address] [place] [address] Nose septum deviation Social History Tobacco Use [...] re latives? Once a week 02/06/2024 Attends [employer] Not on file 02/05 Do you belong to any clubs o r organizations such as zoroastrian groups, unions, fraternal or athletic groups, or [...] Date Recorded PHQ-9 Total Score 0 02/06/2024 [facility] of Occupat ional Health - Occupational [...] any time in the past 12 m [facility], were you homeless or living in a [place] [facility] (including now)? No 02/06/2024 Sex and Gender [...] septum documented in this encounter Care Teams Education Program Manager Relationship Specialty Start Date End Date None, Pcp [address] [place] [phone] PCP - General Inspector And Hand Packager 10/22/21 documented as of this encounter
--- OUTSIDE RECORDS SUMMARY | 2024-06-02 17:00 | XMS_ITS | Encounter Summary ---
Author Organization [facility] Address [address] [place] [address] Care Team Providers Care Airline Dispatcher Name Role Phone Elsewhere, Pcp Primary Care Provider Unavailabl e Encounter Details Date Type Department Care Team (Late st Contact Info) Description 05/31/2024 Documentation Division of Pulmonary Medicine in [place], [place] [address] [place] [phone] Pardeep Bartholomew Jr., M.D. [address] [place] [address] Social History Tobacco Use Types Packs/Day Years [...] as of this encounter Progress Notes * Pardeep Bartholomew Jr., M.D. - 05/31/2024 5:12 PM CDT [facility] TRIAGE 63-year-old underwent CT chest May 23, 2024 showing extensive emphysema and left upper lung spiculated nodule. We will check PFTs, blood work to include alpha-1 antitrypsin, then okay for [facility] visit. documented in this encounter Plan of Treatment Upcoming Encounters Date Type Department Care Team (Late st Contact Info) Description 06/07/2024 7:00 AM CDT Diagnostic Division of Pulmonary Medicine in [place], [place] [address] [place] [phone] Pardeep Bartholomew Jr., M.D. [address] [place] [phone] 06/07/2024 8:10 AM CDT Appointment Department of Laboratory Medicine and Pathology, [facility] in [place], [place] [address] [place] [phone] Pardeep Bartholomew Jr., M.D. [address] [place] [phone] 06/07/2024 9:00 AM CDT Comprehensive Visit Division of Pulmonary Medicine in [place], [place] [address] [place] [phone] Carolyn Murray M.D. [address] [place] [phone] Scheduled Orders Name Type Priority Associated Diagnoses Orde r Schedule Pulmonary Function Tests PFT Routine Tobacco Use Abuse Tobacco Smoking Nodule Pulmonary Emphysema (HCC) 1 Occurrences starting 05/31/2024 until 08/30/2025 CBC with Differential, Blood Lab Routine Tobacco Use Abuse Tobacco Smoking Nodule Pulmonary Emphysema (HCC) 1 Occurrences starting 05/31/2024 until 05/31/2025 Comprehensive Metabolic Panel Lab Routine Tobacco Use Abuse Tobacco Smoking Nodule Pulmonary Emphysema (HCC) 1 Occurrences starting 05/31/2024 until 05/31/2025 Ionce-1-Lnkxugcnkeh Proteotype S/Z by LC-MS/MS Lab Routine Tobacco Use Abuse Tobacco Smoking Nodule Pulmonary Emphysema (HCC) 1 Occurrences starting 05/31/2024 until 05/31/2025 documented as of this encounter Visit Diagnoses Diagnosis Tobacco Use- Primary Abuse Tobacco Smoking Nodule Pulmonary Emphysema (HCC) documented in this encounter Additional Health Concerns Assessment Noted Time PHQ-9 Depression Total Score: 4 09/19/19 18 11:05 AM SNOW REMOVING SUPERVISOR documented as of this encounter Care Teams Airline Dispatcher Relationship Specialty Start Date End Date Elsewhere, Pcp PCP - General 12/04/21 documented as of this encounter
--- OUTSIDE RECORDS SUMMARY | 2024-06-02 17:00 | XMS_ITS | Encounter Summary ---
Author Organization [facility] Address [address] [place] [address] Care Team Providers Care Wheel Installer Name Role Phone Elsewhere, Pcp Primary Care Provider Unavailabl e Reason for Referral * Outpatient (Routine) - Authorized Specialty Diagnoses / Procedures Referred By Humberto t Referred To Contact Pulmonary Medicine Diagnoses Nodules Pulmonary Multiple Abnormal Findings On Diagnostic Imaging Of Other Specified Body Structures Maureen Vasques C.N.P. [address] [place] [phone] [facility] Referral ID Status Reason Start Date Expiration Date V isits Requested Visits Authorized [id number] Authorized 05/30/2024 11/29/2025 1 1 Encounter Details Date Type Department Care Team (Late st Contact Info) Description 05/29/2024 [facility] [address] [place] [address] Maureen Vasques, C.N.P. [address] [place] [phone] Abnormal Findings On Diagnostic Imaging Of Other Specified Body Structures (Primary Dx); Nodules Pulmonary Multiple Social History Tobacco Use Types Packs/Day Years [...] as of this encounter Plan of Treatment Upcoming Encounters Date Type Department Care Team (Late st Contact Info) Description 06/07/2024 7:00 AM CDT Diagnostic Division of Pulmonary Medicine in [place], [place] [address] [place] [phone] Pardeep Bartholomew Jr., M.D. [address] [place] [phone] 06/07/2024 8:10 AM CDT Appointment Department of Laboratory Medicine and Pathology, [facility] in [place], [place] [address] [place] [phone] Pardeep Bartholomew Jr., M.D. [address] [place] [phone] 06/07/2024 9:00 AM CDT Comprehensive Visit Division of Pulmonary Medicine in [place], [place] [address] [place] [phone] Carolyn Murray M.D. [address] [place] [phone] Scheduled Referrals Name Type Priority Associated Diagnoses Orde r Schedule Pulmonary Medicine Referral Outpatient Referral Routine Nodules Pulmonary Multiple Abnormal Findings On Diagnostic Imaging Of Other Specified Body Structures Expected: 05/30/2024 (Approximate), Expires: 08/29/2025 documented as of this encounter Visit Diagnoses Diagnosis Abnormal Findings On Diagnostic Imaging Of Other Specified Body Structures- Primary Nodules Pulmonary Multiple documented in this encounter Additional Health Concerns Assessment Noted Time PHQ-9 Depression Total Score: 4 09/19/19 18 11:05 AM PRECISION AIRCRAFT STRUCTURE ASSEMBLER documented as of this encounter Care Teams Wheel Installer Relationship Specialty Start Date End Date Elsewhere, Pcp PCP - General 12/04/21 documented as of this encounter
--- OUTSIDE RECORDS SUMMARY | 2024-06-02 17:01 | XMS_ITS | Continuity of Care Document ---
Author Organization [facility] Address [address] [place] [address] Phone Care Team Providers Care Brush Maker Name Role Phone Jama APPIAH, Billy Unavailable Unavailable Advance Directives Directive Yes / No Effective Date File Name No Information Encounters Encounter Description Practice Location Reason(s) For Visit Diagnoses Date Provider Providers Copied on Encounter [facility], [address], [place], [place], [id number], [place] tel:[phone] [facility] - [facility] No Information Jama Cervantes. [facility], [address] [place] [address], [address], [id number], [place]. tel:[phone] Family History Family Member Type Diagnosis Age [...]
--- OUTSIDE RECORDS SUMMARY | 2024-06-02 17:01 | XMS_ITS | Continuity of Care Document ---
Author Organization [facility] Address [address] [place] [address] Phone Care Team Providers Care Block Mechanic Name Role Phone Mariusz SHETHMitali Unavailable Unavailable [...] Cons New/estab Mod-hi 60 [facility] Pineda, [address] [facility] [address], [place], [place], [id number], [place] tel:[phone] [facility] No Information Mariusz Mitali. [address], [address], [place], [address], [place]. tel:[phone] Referring Provider: Abraham Ruiz DO, [address] [facility] [address] [facility], [place], [address]. tel:[phone] Family History Family Member Type Diagnosis Age At Onset No Information Payers Payer name Insurance type Covered democrat ID Nahid cervantess) Joseph WASHBURN [id number] Social History Type Description Quantity Date Captured [...]
--- NOTE | 2024-06-02 17:53 | ED_ITS ---
HPI - General Adult General Chief complaint: Unspecified Complaint, Adult Stated complaint: Burning sensation in feet/mouth Time Seen by Provider: 06/02/24 17:29 History of Present Illness HPI narrative: This 63-year-old male comes in reporting mouth pain and foot pain bilaterally. He states that he has pressure in his sinuses and called in to clinic and had a virtual visit. A prescription for cefdinir was made for an assumed diagnosis of sinusitis. The patient has been taking this medicine and comes in with these complaints of mouth pain and bilateral foot pain. He does not report any injury event. He has not had any fevers. His feet appear normal in regard to no sign of injury or infection. He arrives here with normal vital signs. Related Data Previous Rx's ?Medication ?Instructions ?Recorded cefdinir 300 mg capsule 300 mg PO BID 14 days #28 caps 06/01/24 Magic Mouthwash 10 ml PO TID PRN Mouth Irritation 06/02/24 (Lidocaine/Benadryl/Maalox) 120 mL #240 mL suspension methylprednisolone 4 mg tablets in See Rx Instructions PO .COMPLEX 06/02/24 a dose pack (Medrol (Andrea)) #21 ea polymyxin B sulfate 10,000 1 drp ophthalmic (eye) Q3H 7 days 06/02/24 unit-trimethoprim 1 mg/mL eye drops #10 mL Allergies Allergy/AdvReac Type Severity Reaction Status Date / Time naproxen Allergy Mild GI Upset Verified 05/25/24 14:11 Review of Systems Status of ROS: Reports: 10 or more systems reviewed and unremarkable except as noted in History and below Narrative: Constitutional: No fevers, no weight gain or loss. Eyes: No vision changes. This patient does report some discharge from his eyes bilaterally. HENT: The patient reports nasal congestion and pain with sore throat and sore mouth. Cardiovascular: No chest pain, no palpitations. Respiratory: No shortness of breath, no wheezes, no cough. Gastrointestinal: No abdominal pain, no vomiting, no diarrhea. Genitourinary: No dysuria, no hematuria. Musculoskeletal: Normal range of motion. Bilateral foot pain. Skin: No rashes, no pruritis. Neurological: No dizziness, weakness, sensory change, speech change. Endo/Heme/Allergies: No bruising or bleeding. No polydipsia. Pysch: no suicidality, no anxiety, no insomnia. All other systems reviewed and are negative. [facility] Medical History (Updated 06/02/24 @ 17:59 by Marlo Galvan MD) Lumbar disc herniation ?M51.26 - Other intervertebral disc displacement, lumbar region (ICD-10) Surgical History (Updated 05/16/24 @ 15:34 by Stephanie Wilson) History of appendectomy ?Z90.49 - Acquired absence of other specified parts of digestive tract (ICD- 10) History of tonsillectomy ?Z90.89 - Acquired absence of other organs (ICD-10) History of cervical spinal surgery ?Z98.890 - Other specified postprocedural states (ICD-10) History of foot surgery ?Z98.890 - Other specified postprocedural states (ICD-10) History of hernia repair ?Z98.890 - Other specified postprocedural states (ICD-10) ?Z87.19 - Personal history of other diseases of the digestive system (ICD-10) Family History (Updated 05/29/24 @ 05:29 by Maureen Vasques APRN, DOMENIC) Father Diabetes Social History (Updated 05/29/24 @ 05:29 by Maureen Vasques APRN, MEDICAL RESEARCH ASSOCIATE) Narrative: . Disability for musculoskeletal issues. 9 children. No alcohol. No illicit drug use. Smoker 40+ year history. Smoking Status: Current every day smoker Do you use any of these nicotine containing products: None Second hand tobacco smoke exposure: Yes How often do you have a drink containing alcohol: never How often do you have six or more drinks on one occasion: Never AUDIT-C Alcohol total score: 0 Non-prescribed substance use: denies use service: No Exam 2 Narrative: Exam Narrative: Constitutional: Well-developed, well-nourished, no acute distress. HEENT: Normocephalic, atraumatic. Mild pharyngeal erythema without sign of tonsillar hypertrophy or exudate. The patient does appear to have a small amount of matting are exudate from both eyes. Neck: Normal range of motion. Nontender. Supple. Heart: Regular. No murmurs. Normal rate. Intact distal pulses. Lungs: Clear to auscultation. No chest discomfort. No wheezes, rhonchi, or rales. Abdomen: Normal bowel sounds. Nontender. No rebound tenderness. Genitalia: Deferred. Back: No midline tenderness. Normal range of motion. Extremities: Normal range of motion. No injury. Skin: Intact. No rash. Warm. No erythema or pallor. Neurologic: No altered sensation. No weakness. Alert and oriented. Psychiatric: No suicidality. No insomnia. Nursing notes and vitals signs are reviewed. Const: Vital Signs, click to edit/add: Vital Signs - 24 hr 06/02/24 16:59 Temperature 98.7 F Pulse Rate [Right Pulse Oximeter] 78 Respiratory Rate 18 Blood Pressure [Ri ght Upper Arm] 155/74 H Pulse Oximetry 98 Oxygen Delivery Me thod Room Air Course Vital Signs Vital signs: Initial Vital Signs Temperature 98.7 F 06/02/24 16:59 Temperature Source Temporal Artery Scan 06/02/24 16:59 Pulse Rate 78 06/02/24 16:59 Pulse Rhythm Regular 06/02/24 16:59 Pulse Strength 3+ Normal 06/02/24 16:59 Respiratory Rate 18 06/02/24 16:59 Blood Pressure 155/74 H 06/02/24 16:59 Blood Pressure Mean 101 06/02/24 16:59 Blood Pressure Position Semi-Fowlers 06/02/24 16:59 Pulse Oximetry 98 06/02/24 16:59 Oxygen Delivery Method Room Air 06/02/24 16:59 Vital Signs Temperature 98.7 F 06/02/24 16:59 Pulse Rate 78 06/02/24 16:59 Respiratory Rate 18 06/02/24 16:59 Blood Pressure 155/74 H 06/02/24 16:59 Pulse Oximetry 98 06/02/24 16:59 Oxygen Delivery Method Room Air 06/02/24 16:59 Temperature 98.7 F 06/02/24 16:59 Pulse Rate 78 06/02/24 16:59 Respiratory Rate 18 06/02/24 16:59 Blood Pressure 155/74 H 06/02/24 16:59 Pulse Oximetry 98 06/02/24 16:59 Oxygen Delivery Method Room Air 06/02/24 16:59 Medical Decision Making MDM Narrative Medical decision making narrative: This patient comes in with the above-stated complaints. He arrives with normal vital signs and his exam is rather reassuring. He complains of bilateral foot pain but there is no sign of infection or swelling or disability. There was no injury event. The patient does have history of peripheral neuropathy. He also is reporting sinus symptoms as described above. He has started on cefdinir to treat these symptoms. He did not have CT imaging to establish a diagnosis of sinusitis. Since he is already being treated for this I stated that such imaging is not likely to change the treatment plan. I did discuss other lab and imaging options with the patient who declined these in a process of shared decision making. Patient did receive an oral dose of dexamethasone 10 mg. I did provide prescriptions for Polytrim ophthalmic solution, Medrol Dosepak, and magic mouthwash. Discharge Plan Discharge Clinical Impression: Sinusitis, Peripheral neuropathy, Conjunctivitis Patient Disposition: Home, Self-Care Condition: Stable Additional Instructions: Take medications as prescribed. Follow up with MD or return if worsening symptoms occur. Prescriptions: New polymyxin B sulf-trimethoprim 10,000 unit- 1 mg/mL drops 1 drp ophthalmic (eye) Q3H 7 Days Qty: 10 0RF Rx Instructions: while awake; do not exceed 6 doses in 24 hours methylprednisolone [Medrol (Andrea)] 4 mg tablets,dose pack See Rx Instructions .ROUTE .COMPLEX Qty: 21 0RF Rx Instructions: orally per package directions Magic Mouthwash (Lidocaine/Benadryl/Maalox) 120 mL suspension 10 ml PO TID PRN (Reason: Mouth Irritation) Qty: 240 0RF Rx Instructions: Lidocaine Viscous 2 % mucosal solution 40 mL; Maalox 200 mg-200 mg-20 mg/5 mL oral suspension 40 mL; Benadryl 12.5 mg/5 mL oral elixir 40 mL; Per 120 mL SWISH AND SPIT. MAY COMPOUND IF FIRST PRODUCT IS NOT AVAILABLE. No Action cefdinir 300 mg capsule 300 mg PO BID 14 Days Qty: 28 0RF Follow Up/Referrals: Maureen Vasques, CARE DIRECTOR RN, MEDICAL RESEARCH ASSOCIATE [Primary Care Provider] - Stand Alone Forms: [employer] Info Instructions
--- OUTSIDE RECORDS SUMMARY | 2024-06-02 17:59 | XMS_ITS | Encounter Summary ---
Author Organization [facility] er Address [address] [place] [address] Care Team Providers Care Logistics Manager Name Role Phone None, Pcp Primary Care Provider Unavailabl e Reason for Visit * Reason Comments Nasal Congestion Follow-up from previ ous visit unresolved. Encounter Details Date Type Department Care Team ([facility] st Contact Info) Description 04/02/2024 11:00 AM CDT Office Visit [address] [address] Shay Cohen, DNP, MEDICAL INVESTIGATOR, CUSTOMER CARE ASSISTANT [address] [place] [address] Nose septum deviation (Primary Dx); Nasal drainage [...] re latives? Once a week 02/06/2024 Attends Latter-Day Services Not on file 02/05 Do you belong to any clubs o r organizations such as evangelical groups, unions, fraternal or athletic groups, or [...] Date Recorded PHQ-9 Total Score 0 02/06/2024 [facility]ational Stress Questionnaire Answer Date [...] any time in the past 12 m [facility], were you homeless or living in a chcf (including now)? No 02/06/2024 Sex and Gender [...] Please reach out to your ENT in [place] [facility]. Please provide usan update after you get [...] with an ear nose throat physician at [facility] in [place], [place]. He states they performed a procedure [...] significant facial deformities or scars. Mouth/Throat: Lips: [place]. Mouth: Mucous membranes are moist. Pharynx: Oropharynx [...] rinses. We also discussed consistent use of sziq-ily-gfzntvu medications in the meantime. Other Visit Diagnoses Nasal drainage documented in this encounter Miscellaneous Notes * Assessment & Plan Note - Shay Cohen DNP, APRN, CNP - 04/02/2024 2:25 PM CDTAssociated Problem(s): Nose septum deviation Nasal septum deviation to the right. Exam and history are not consistent with and infectious process. Unfortunately records are currently unavailable from his recent ENT visit. Plan: TERRANEC signed, will get records from his ENT [...] rinses. We also discussed consistent use of fjok-ish-iyvayob medications in the meantime. documented in this encounter Plan of Treatment Not on file documented as of this encounter Visit Diagnoses Diagnosis Nose septum deviation- Primary Deviated nasal septum Nasal drainage documented in this encounter Care Teams Logistics Manager Relationship Specialty Start Date End Date None, Pcp [address] [place] [phone] PCP - General Architecture Faculty Member 10/22/21 documented as of this encounter
--- OUTSIDE RECORDS SUMMARY | 2024-06-02 17:59 | XMS_ITS | Encounter Summary ---
Author Organization [facility] er Address [address] [place] [address] Care Team Providers Care Street Light Repairer Name Role Phone None, Pcp Primary Care Provider Unavailabl e Reason for Visit * Reason Comments Med Refill Encounter Details Date Type Department Care Team (Late st Contact Info) Description 02/15/2024 Refill [place] [address] [place] [address] Shay Cohen, DNP, LEATHER PRODUCTS SUPERVISOR, MEAT TEAM MEMBER [address] [facility] [address] [place] [address] Nose septum deviation Social History Tobacco Use [...] re latives? Once a week 02/06/2024 Attends Christianity Services Not on file 02/05 Do you belong to any clubs o r organizations such as mormonism groups, unions, fraternal or athletic groups, or [...] Total Score 0 02/06/2024 [facility] - Occupational Stress [...] time in the past 12 m [facility], were you homeless or living in a retirement (including now)? No 02/06/2024 Sex and Gender [...] septum documented in this encounter Care Teams Street Light Repairer Relationship Specialty Start Date End Date None, Pcp [address] [place] [phone] PCP - General Soaker Soda Worker 10/22/21 documented as of this encounter
--- OUTSIDE RECORDS SUMMARY | 2024-06-02 17:59 | XMS_ITS | Clinical Summary ---
Author Organization [facility] er Address [address] [place] [address] Care Team Providers Care Senior Sql Dba Name Role Phone None, Pcp Primary Care [...] rinses. We also discussed consistent use of tupv-asi-bmelklz medications in the meantime. Encounters Date Type Department Care Team Description 04/02/2024 11:00 AM CDT Office Visit [address] [address] Shay Cohen, DNP, ONLINE ACTIVIST, GRAZING EXAMINER Nose septum deviation (Primary Dx); Nasal drainage [...] any clubs o r organizations such as mosque groups, unions, fraternal or athletic groups, or [...] Date Recorded PHQ-9 Total Score 0 02/06/2024 [facility] of Occupat ional Health - Occupational Stress [...] in the past 12 m [facility], were you homeless or living in a [...] this topic Medical Devices Implanted Type Area Coverer Device Identifier Shelf Expiration Date Model / Serial / Lot 4.0mm Headed Screw Length 18mm Implanted:Qty: 1 on 10/30/2021 by Yanick Hutchinson DPM at [facility] Screw Left: Foot [id number] / / Care Teams Senior Sql Dba Relationship Specialty Start Date End Date None, Pcp [address] [place] [address] PCP - General Steam Trap Worker 10/22/21
--- OUTSIDE RECORDS SUMMARY | 2024-06-02 18:00 | XMS_ITS | Referral Summary ---
Author Organization [facility] Address [address] [place] [address] Care Team Providers Care Hearing Examiner Name Role Phone Elsewhere, Pcp Primary Care Provider Unavailabl e Source Comments Patient records contain information from all sites at [facility]. For routine questions regarding patient records, call [phone] during business hours, M-F 8:00 AM - 5:00 PM Central Time. Record requests for emergency care only can be directed to [phone] at any time.[facility] Encounters Date Type Department Care Team Description 06/01/2024 8:56 PM CDT - 06/01/2024 11:[address] [facility] Emergency Department [address] [place] [address] Discharge Disposition: Left Against Medical Advice or Discontinued Care 05/31/2024 Documentation Division of Pulmonary Medicine in [place], [place] [address] [place] [address] Pardeep Bartholomew Jr., M.D. 05/29/2024 [facility] [address] [place] [address] Maureen Vasques, C.N.P. 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 Ruiz ( [place]) around ??2009?? Chronic, continued pain. Cymbalta no [...] lb 14 oz) 10/17/2023 10:45 A M LETTER SORTING MACHINE OPERATOR Height 179 cm (5' 10.47) 10/17/2023 10:45 AM CS T Body Mass Index 23.91 10/17/2023 10:45 AM LETTER SORTING MACHINE OPERATOR Plan of Treatment Upcoming Encounters Date Type Department Care Team (Late st Contact Info) Description 06/07/2024 7:00 AM CDT Diagnostic Division of Pulmonary Medicine in [place], [place] [address] [place] [phone] Pardeep Bartholomew Jr., M.D. [address] [place] [phone] 06/07/2024 8:10 AM CDT Appointment Department of Laboratory Medicine and Pathology, [facility] in [place], [place] [address] [place] [address] Pardeep Bartholomew Jr., M.D. [address] [place] [phone] 06/07/2024 9:00 AM CDT Comprehensive Visit Division of Pulmonary Medicine in [place], [place] [address] [place] [phone] Carolyn Murray M.D. [address] [place] [address] [place] [phone] Procedures Procedure Name Priority Date/Time Associated Diagnosis Comments OUTSIDE CT BODY Routine 05/23/2024 4:45 PM CDT OUTSIDE DX CHEST Routine 05/17/2024 11:2 0 AM CDT OUTSIDE DX GENERAL Routine 05/17/2024 11 :15 AM CDT LIPID PANEL, S Routine 10/17/2023 11:55 AM LETTER SORTING MACHINE OPERATOR Encounter For Screening For Cardiovascular Disorders COMPREHENSIVE METABOLIC PANEL, S/P Routine 10/17/2023 11:55 AM LETTER SORTING MACHINE OPERATOR Onychomycosis COLONOSCOPY Routine 04/08/2015 from Last 3 [...] Chest Xray (05/17/2024 11:20 AM CDT) Narrative IINE - 05/29/2024 9:43 AM CDT This order has been created and auto-finalized to support the import of outside images. If available, original interpretation can be found on the Media Tab in Chart Review, in Document Viewer, as an image in QREADS or as an Addendum. If a re-interpretation or overread is required please follow defined workflow.?? Provider Not In System [facility]ED[facility] Performing Organization Address City/[facility]/ZIP Co de Phone Number II NA * XR abdomen min 2V-Outside Gen Dx Stdy (05/17/2024 11:15 AM CDT) Narrative [facility] - 05/29/2024 9:43 AM CDT This order has been created and auto-finalized to support the import of outside images. If available, original interpretation can be found on the Media Tab in Chart Review, in Document Viewer, as an image in QREADS or as an Addendum. If a re-interpretation or overread is required please follow defined workflow.?? Provider Not In System [facility] Performing Organization Address [facility] Co de Phone Number JOSE LUIS NA * Lipid Panel (10/17/2023 11:55 AM LETTER SORTING MACHINE OPERATOR) Triglycerides 71 mg/dL 10/17/2023 2:19 PM LETTER SORTING MACHINE OPERATOR OWAT Comment: ----REFERENCE VALUE---- Normal: <150 mg/dL Borderline High: 150-199 mg/dL High: 200-499 mg/dL Very High: > or =500 mg/dL Cholesterol, Total 155 mg/dL 2023 2:19 PM LETTER SORTING MACHINE OPERATOR OWAT Comment: ----REFERENCE VALUE---- Desirable: < 200 mg/dL Borderline High: 200 - 239 mg/dL High: > or = 240 mg/dL Cholesterol, LDL, Calculated 81 mg/dL 10/17/2023 2:19 PM LETTER SORTING MACHINE OPERATOR OWAT Comment: ----REFERENCE VALUE---- Desirable: <100 mg/dL Above Desirable: 100-129 mg/dL Borderline High: 130-159 mg/dL High: 160-189 mg/dL Very High: >=190 mg/dL ----ADDITIONAL INFORMATION---- LDL cholesterol calculated using the Borrero/NIH equation. Cholesterol, HDL 60 >=40 mg/dL 10/17/19 2:19 PM LETTER SORTING MACHINE OPERATOR OWAT Cholesterol, Non-HDL, Calculated 95 mg/dL 10/17/2023 2:19 PM LETTER SORTING MACHINE OPERATOR OWAT Comment: ----REFERENCE VALUE---- Desirable: <130 mg/dL Above Desirable: 130-159 mg/dL Borderline High: 160-189 mg/dL High: 190-219 mg/dL Very High: > or =220 mg/dL Fasting (8 HR or more) Yes 10/17/2023 1:32 PM LETTER SORTING MACHINE OPERATOR OWAT Blood (Blood, Venous) 10/17/2023 11:55 AM LETTER SORTING MACHINE OPERATOR 10/17/2023 1:32 PM LETTER SORTING MACHINE OPERATOR Rhett Tompkins P.A.-C. LAB BLOOD ADD- ON [facility] [address] [place] [address], [facility] OWAT [facility] [place] [address] [place] [address] * Comprehensive Metabolic Panel (10/17/2023 11:55 AM LETTER SORTING MACHINE OPERATOR) Potassium, P 4.4 3.6 - 5.2 mmol/L 10/17/2023 2:19 PM LETTER SORTING MACHINE OPERATOR OWAT Sodium, P 142 135 - 145 mmol/L 10/17/2023 2:19 PM LETTER SORTING MACHINE OPERATOR OWAT Chloride, P 104 98 - 107 mmol/L 10/17/2023 2:19 PM LETTER SORTING MACHINE OPERATOR OWAT Bicarbonate, P 28 22 - 29 mmol/L 10/17/2023 2:19 PM LETTER SORTING MACHINE OPERATOR OWAT Anion Gap, P 10 7 - 15 10/17/2023 2:19 PM LETTER SORTING MACHINE OPERATOR OWAT BUN (Blood Urea Nitrogen), P 17 8 - 24 mg/dL 10/17/2023 2:19 PM LETTER SORTING MACHINE OPERATOR OWAT Creatinine 0.76 0.74 - 1.35 mg/dL 10/17/2023 2:19 PM LETTER SORTING MACHINE OPERATOR OWAT Estimated GFR (eGFR) >90 >=60 mL/min/BS A 10/17/2023 2:19 PM LETTER SORTING MACHINE OPERATOR OWAT Comment: Estimated GFR calculated using the 2020 CKD_EPI creatinine equation. Calcium, Total, P 9.5 8.8 - 10.2 mg/dL 10/17/2023 2:19 PM LETTER SORTING MACHINE OPERATOR OWAT Glucose, P 120 70 - 140 mg/dL 10/17/2023 2:19 PM LETTER SORTING MACHINE OPERATOR OWAT Protein, Total, P 7.5 6.3 - 7.9 g/dL 10/17/2023 2:19 PM LETTER SORTING MACHINE OPERATOR OWAT Albumin, P 4.5 3.5 - 5.0 g/dL 10/17/2023 2:19 PM LETTER SORTING MACHINE OPERATOR OWAT Aspartate Aminotransferase (AST), P 31 8 - 48 U/L 10/17/2023 2:19 PM LETTER SORTING MACHINE OPERATOR OWAT Alkaline Phosphatase, P 77 40 - 129 U/L 10/17/2023 2:19 PM LETTER SORTING MACHINE OPERATOR OWAT Alanine Aminotransferase (ALT), P 21 7 - 55 U/L 10/17/2023 2:19 PM LETTER SORTING MACHINE OPERATOR OWAT Bilirubin, Total, P 0.5 0.0 - 1.2 mg/dL 10/17/2023 2:19 PM LETTER SORTING MACHINE OPERATOR OWAT Blood (Blood, Venous) 10/17/2023 11:55 AM LETTER SORTING MACHINE OPERATOR 10/17/2023 1:32 PM LETTER SORTING MACHINE OPERATOR Marlyn Cintron P.A.-C. LAB BLOOD ADD-ON [facility] [address] [place] [address], [facility] OWAT [facility] [place] [address] [place] [address] * Colonoscopy (04/08/2015) EXT Colonoscopy Abnormal - See Scanned Report for Details Normal - See Scanned Report for Details, HIMS - Report Received and Scanned Comment:see care everywhere for result details Historical Provider GI PROCEDURE ORDERAB LES from Last 3 Months or Most Recently Relevant to Health Maintenance Care Teams Hearing Examiner Relationship Specialty Start Date End Date Elsewhere, Pcp PCP - General 12/04/21
--- OUTSIDE RECORDS SUMMARY | 2024-06-02 18:00 | XMS_ITS | Encounter Summary ---
Author Organization [facility] Address [address] [place] [address] Care Team Providers Care Hydrogen Power Plant Engineer Name Role Phone Elsewhere, Pcp Primary Care Provider Unavailabl e Reason for Referral * Outpatient (Routine) - Authorized Specialty Diagnoses / Procedures Referred By Humberto t Referred To Contact Pulmonary Medicine Diagnoses Nodules Pulmonary Multiple Abnormal Findings On Diagnostic Imaging Of Other Specified Body Structures Maureen Vasques C.N.P. [address] [place] [address] [facility] Referral ID Status Reason Start Date Expiration Date V isits Requested Visits Authorized [id number] Authorized 05/30/2024 11/29/2025 1 1 Encounter Details Date Type Department Care Team (Late st Contact Info) Description 05/29/2024 [facility] [address] [place] [address] Maureen Vasques, C.N.P. [address] [place] [phone] Abnormal Findings On Diagnostic Imaging Of Other [...] CDT Diagnostic Division of Pulmonary Medicine in [place], [place] [address] [place] [phone] Pardeep Bartholomew Jr., M.D. [address] [place] [phone] 06/07/2024 8:10 AM CDT Appointment Department of Laboratory Medicine and Pathology, [facility] in [place], [place] [address] [place] [phone] Pardeep Bartholomew Jr., M.D. [address] [place] [phone] 06/07/2024 9:00 AM CDT Comprehensive Visit Division of Pulmonary Medicine in [place], [place] [address] [place] [phone] Carolyn Murray M.D. [address] [place] [phone] Scheduled Referrals Name Type Priority Associated Diagnoses [...] Total Score: 4 09/19/19 18 11:05 AM LASER PRINT OPERATOR documented as of this encounter Care Teams Hydrogen Power Plant Engineer Relationship Specialty Start Date End Date Elsewhere, Pcp PCP - General 12/04/21 documented as of this encounter
--- OUTSIDE RECORDS SUMMARY | 2024-06-02 18:00 | XMS_ITS | Encounter Summary ---
Author Organization [facility] Address [address] [place] [address] Care Team Providers Care Bi Tri Operator Name Role Phone Elsewhere, Pcp Primary Care Provider Unavailabl e Encounter Details Date Type Department Care Team (Late st Contact Info) Description 05/31/2024 Documentation Division of Pulmonary Medicine in [place], [place] [address] [place] [phone] Pardeep Bartholomew Jr., M.D. [address] [place] [address] Social History Tobacco Use Types Packs/Day Years [...] to include alpha-1 antitrypsin, then okay for [facility] visit. documented in this encounter Plan of Treatment Upcoming Encounters Date Type Department Care Team (Late st Contact Info) Description 06/07/2024 7:00 AM CDT Diagnostic Division of Pulmonary Medicine in [place], [place] [address] [place] [phone] Pardeep Bartholomew Jr., M.D. [address] [place] [phone] 06/07/2024 8:10 AM CDT Appointment Department of Laboratory Medicine and Pathology, [facility] in [place], [place] [address] [place] [phone] Pardeep Bartholomew Jr., M.D. [address] [place] [phone] 06/07/2024 9:00 AM CDT Comprehensive Visit Division of Pulmonary Medicine in [place], [place] [address] [place] [phone] Carolyn Murray M.D. [address] [place] [phone] Scheduled Orders Name Type Priority Associated Diagnoses [...] (HCC) 1 Occurrences starting 05/31/2024 until 05/31/2025 Vssip-3-[id number] Proteotype S/Z by LC-MS/MS Lab Routine Tobacco Use Abuse Tobacco Smoking Nodule Pulmonary Emphysema (HCC) 1 Occurrences starting 05/31/2024 until 05/31/2025 documented as of this encounter Visit Diagnoses Diagnosis Tobacco Use- Primary Abuse Tobacco Smoking Nodule Pulmonary Emphysema (HCC) documented in this encounter Additional Health Concerns Assessment Noted Time PHQ-9 Depression Total Score: 4 09/19/19 18 11:05 AM WEED CUTTER documented as of this encounter Care Teams Bi Tri Operator Relationship Specialty Start Date End Date Elsewhere, Pcp PCP - General 12/04/21 documented as of this encounter
--- OUTSIDE RECORDS SUMMARY | 2024-06-02 18:00 | XMS_ITS | Clinical Summary ---
Author Organization [facility] Address [address] [place] [address] Care Team Providers Care Crayon Sorting Machine Feeder Name Role Phone Elsewhere, Pcp Primary Care Provider Unavailabl e Source Comments Patient records contain information from all sites at [facility]. For routine questions regarding patient records, call [phone] during business hours, M-F 8:00 AM - 5:00 PM Central Time. 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 Chronic, continued pain. Cymbalta no [...] CDT - 06/01/2024 11:13 PM CDT Emergency [place] [facility] Emergency Department [address] [place] [address] Discharge Disposition: Left Against Medical Advice or Discontinued Care 05/31/2024 Documentation Division of Pulmonary Medicine in [place], [place] [address] [place] [address] Pardeep Bartholomew Jr., M.D. 05/29/2024 [facility] [address] [place] [address] Maureen Vasques, C.N.P. Abnormal Findings On Diagnostic [...] lb 14 oz) 10/17/2023 10:45 A M LICENSED LOAN OFFICER Height 179 cm (5' 10.47) 10/17/2023 10:45 AM CS T Body Mass Index 23.91 10/17/2023 10:45 AM LICENSED LOAN OFFICER Plan of Treatment Upcoming Encounters Date Type Department Care Team (Late st Contact Info) Description 06/07/2024 7:00 AM CDT Diagnostic Division of Pulmonary Medicine in [place], [place] [address] [place] [phone] Pardeep Bartholomew Jr., M.D. [address] [place] [phone] 06/07/2024 8:10 AM CDT Appointment Department of Laboratory Medicine and Pathology, [facility] in [place], [place] [address] [place] [address] Pardeep Bartholomew Jr., M.D. [address] [place] [phone] 06/07/2024 9:00 AM CDT Comprehensive Visit Division of Pulmonary Medicine in [place], [place] [address] [place] [phone] Carolyn Murray M.D. [address] [place] [address] [place] [phone] Health Maintenance Due Date Last Done Comments [...] LIPID PANEL, S Routine 10/17/2023 11:55 AM LICENSED LOAN OFFICER Encounter For Screening For Cardiovascular Disorders COMPREHENSIVE METABOLIC PANEL, S/P Routine 10/17/2023 11:55 AM LICENSED LOAN OFFICER Onychomycosis COLONOSCOPY Routine 04/08/2015 from Last 3 Months or Most Recently Relevant to Health Maintenance Results * CT chest abdomen pelv w con-Outside CT Body (05/23/2024 4:45 PM CDT) Narrative [facility] - 05/29/2024 9:53 AM CDT This order [...] System IMG CT PROCEDURES Performing Organization Address [facility] Co de Phone Number IIMS NA * XR chest 2V-Outside Chest Xray (05/17/2024 11:20 AM CDT) Narrative [facility] - 05/29/2024 9:43 AM CDT This order [...] DIAGNOSTIC IM AGING PROCEDURES Performing Organization Address [facility] Co de Phone Number IIMS NA * XR abdomen min 2V-Outside Gen Dx Stdy (05/17/2024 11:15 AM CDT) Narrative [facility] - 05/29/2024 9:43 AM CDT This order [...] NA * Lipid Panel (10/17/2023 11:55 AM LICENSED LOAN OFFICER) Triglycerides 71 mg/dL 10/17/2023 2:19 PM LICENSED LOAN OFFICER OWAT Comment: ----REFERENCE VALUE---- Normal: <150 mg/dL Borderline High: 150-199 mg/dL High: 200-499 mg/dL Very High: > or =500 mg/dL Cholesterol, Total 155 mg/dL 2023 2:19 PM LICENSED LOAN OFFICER OWAT Comment: ----REFERENCE VALUE---- Desirable: < 200 mg/dL Borderline High: 200 - 239 mg/dL High: > or = 240 mg/dL Cholesterol, LDL, Calculated 81 mg/dL 10/17/2023 2:19 PM LICENSED LOAN OFFICER OWAT Comment: ----REFERENCE VALUE---- Desirable: <100 mg/dL Above Desirable: 100-129 mg/dL Borderline High: 130-159 mg/dL High: 160-189 mg/dL Very High: >=190 mg/dL ----ADDITIONAL INFORMATION---- LDL cholesterol calculated using the Borrero/NIH equation. Cholesterol, HDL 60 >=40 mg/dL 10/17/19 2:19 PM LICENSED LOAN OFFICER OWAT Cholesterol, Non-HDL, Calculated 95 mg/dL 10/17/2023 2:19 PM LICENSED LOAN OFFICER OWAT Comment: ----REFERENCE VALUE---- Desirable: <130 mg/dL Above Desirable: 130-159 mg/dL Borderline High: 160-189 mg/dL High: 190-219 mg/dL Very High: > or =220 mg/dL Fasting (8 HR or more) Yes 10/17/2023 1:32 PM LICENSED LOAN OFFICER OWAT Blood (Blood, Venous) 10/17/2023 11:55 AM LICENSED LOAN OFFICER 10/17/2023 1:32 PM LICENSED LOAN OFFICER Rhett LeeC. LAB BLOOD ADD- ON [facility] [address] [place] [address], [place] OWAT [facility] in [place] [address] [place] [address] * Comprehensive Metabolic Panel (10/17/2023 11:55 AM LICENSED LOAN OFFICER) Potassium, P 4.4 3.6 - 5.2 mmol/L 10/17/2023 2:19 PM LICENSED LOAN OFFICER OWAT Sodium, P 142 135 - 145 mmol/L 10/17/2023 2:19 PM LICENSED LOAN OFFICER OWAT Chloride, P 104 98 - 107 mmol/L 10/17/2023 2:19 PM LICENSED LOAN OFFICER OWAT Bicarbonate, P 28 22 - 29 mmol/L 10/17/2023 2:19 PM LICENSED LOAN OFFICER OWAT Anion Gap, P 10 7 - 15 10/17/2023 2:19 PM LICENSED LOAN OFFICER OWAT BUN (Blood Urea Nitrogen), P 17 8 - 24 mg/dL 10/17/2023 2:19 PM LICENSED LOAN OFFICER OWAT Creatinine 0.76 0.74 - 1.35 mg/dL 10/17/2023 2:19 PM LICENSED LOAN OFFICER OWAT Estimated GFR (eGFR) >90 >=60 mL/min/BS A 10/17/2023 2:19 PM LICENSED LOAN OFFICER OWAT Comment: Estimated GFR calculated using the 2020 CKD_EPI creatinine equation. Calcium, Total, P 9.5 8.8 - 10.2 mg/dL 10/17/2023 2:19 PM LICENSED LOAN OFFICER OWAT Glucose, P 120 70 - 140 mg/dL 10/17/2023 2:19 PM LICENSED LOAN OFFICER OWAT Protein, Total, P 7.5 6.3 - 7.9 g/dL 10/17/2023 2:19 PM LICENSED LOAN OFFICER OWAT Albumin, P 4.5 3.5 - 5.0 g/dL 10/17/2023 2:19 PM LICENSED LOAN OFFICER OWAT Aspartate Aminotransferase (AST), P 31 8 - 48 U/L 10/17/2023 2:19 PM LICENSED LOAN OFFICER OWAT Alkaline Phosphatase, P 77 40 - 129 U/L 10/17/2023 2:19 PM LICENSED LOAN OFFICER OWAT Alanine Aminotransferase (ALT), P 21 7 - 55 U/L 10/17/2023 2:19 PM LICENSED LOAN OFFICER OWAT Bilirubin, Total, P 0.5 0.0 - 1.2 mg/dL 10/17/2023 2:19 PM LICENSED LOAN OFFICER OWAT Blood (Blood, Venous) 10/17/2023 11:55 AM LICENSED LOAN OFFICER 10/17/2023 1:32 PM LICENSED LOAN OFFICER Marlyn Cintron P.A.-C. LAB BLOOD ADD-ON [facility] [address] [place] [address], [place] OWAT [facility] in [place] [address] [place] [address] * Colonoscopy (04/08/2015) EXT Colonoscopy Abnormal - See Scanned Report for Details Normal - See Scanned Report for Details, HIMS - Report Received and Scanned Comment:see care everywhere for result details Historical Provider GI PROCEDURE ORDERAB LES from Last 3 Months or Most Recently Relevant to Health Maintenance Care Teams Crayon Sorting Machine Feeder Relationship Specialty Start Date End Date Elsewhere, Pcp PCP - General 12/04/21
--- OUTSIDE RECORDS SUMMARY | 2024-06-02 18:00 | XMS_ITS | Encounter Summary ---
Author Organization [facility] Address [address] [place] [address] Care Team Providers Care Engine Assembler Name Role Phone Elsewhere, Pcp Primary Care Provider Unavailabl e Reason for Visit * Reason Comments Leg Pain Encounter Details Date Type Department Care Team (Late st Contact Info) Description 06/01/2024 8:56 PM CDT - 06/01/2024 11:13 PM CDT Emergency [facility] Emergency Department [address] [place] [phone] Discharge Disposition: Left Against Medical Advice or [...] CDT Diagnostic Division of Pulmonary Medicine in [place], [place] [address] [place] [address] Pardeep Bartholomew Jr., M.D. 200 [place] [address] 06/07/2024 8:10 AM CDT Appointment Department of Laboratory Medicine and Pathology, [facility], in [place], [place] [address] [place] [phone] Pardeep Bartholomew Jr., M.D. [address] [place] [phone] 06/07/2024 9:00 AM CDT Comprehensive Visit Division of Pulmonary Medicine in [place], [place] [address] [place] [phone] Carolyn Murray M.D. [address] [place] [phone] documented as of this encounter Visit Diagnoses Not on filedocumented in this encounter Additional Health Concerns Assessment Noted Time PHQ-9 Depression Total Score: 4 09/19/19 18 11:05 AM SIZER MACHINE documented as of this encounter Care Teams Engine Assembler Relationship Specialty Start Date End Date Elsewhere, Pcp PCP - General 12/04/21 documented as of this encounter
--- OUTSIDE RECORDS SUMMARY | 2024-06-02 18:00 | XMS_ITS | Encounter Summary ---
Author Organization [facility] Address [address] [place] [address] Care Team Providers Care Wader Boot Top Assembler Name Role Phone None, Pcp Primary Care Provider Unavailabl e Encounter Details Date Type Department Care Team (Late st Contact Info) Description 02/14/2024 Telephone [place] [address] [place] [address] None, Pcp [address] [place] [address] Social History Tobacco Use Types Packs/Day Years [...] re latives? Once a week 02/06/2024 Attends [facility] Not on file 02/05 Do you belong to any clubs o r organizations such as congregation groups, unions, fraternal or athletic groups, or [...] Date Recorded PHQ-9 Total Score 0 02/06/2024 [facility] [place] of Occupat ional Health - Occupational Stress [...] any time in the past 12 m [facility], were you homeless or living in a assisted (including now)? No 02/06/2024 Sex and Gender [...] has an appointment with [facility] in [place] next week. Will be in touch at local [facility] clinic if needed for pre-ops, etc. * [...] on filedocumented in this encounter Care Teams Wader Boot Top Assembler Relationship Specialty Start Date End Date None, Pcp [address] [facility] [place] [address] PCP - General Water Pollution Control Inspector 10/22/21 documented as of this encounter
--- OUTSIDE RECORDS SUMMARY | 2024-06-02 18:00 | XMS_ITS | Clinical Summary ---
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 Chronic, continued pain. Cymbalta no [...] Description 05/14/2024 7:35 PM CDT Ancillary Procedure [facility] [address] [place] [address] 05/14/2024 6:00 PM CDT Office Visit [facility] [address] [place] [address] Milton Youngblood PA Chest Wall Pain 05/14/2024 Travel 05/07/2024 6:33 PM CDT - 05/07/2024 7:18 PM CDT Emergency [facility] [address] [place] [address] Elsa Canada MD Nasal disorder (Primary Dx) Discharge Disposition: Home Self Care 05/07/2024 Travel 04/05/2024 6:20 PM CDT Office Visit [facility] [address] [place] [address] Glenis Muller, SHED WORKERS SUPERVISOR Nose Problem (Sores in nose- painful. First [...] 50-64 05/06/2024 Medical Devices Implanted Type Area Branch Lending Manager Device Identifier Shelf Expiration Date Model / Serial / Lot Mesh Ventral 3x6in Bard Soft - [id number] Implanted:Qty: 2 on 12/14/2017 by Victorino Sanders MD at [facility] Bilateral: Inguinal [employer] 09/01/2022 [id number] / / [id number] Description:BARD Soft Mesh, Bilateral Inguinal Procedures Procedure [...] 7:02 AM 12/14/2017 3:36 PM Care Teams Director Business Travel Relationship Specialty Start Date End Date Rhett Tompkins PA [address] [place] [address] PCP - General Physician Tour Production Supervisor 06/08/23 Nonstaff, Doctor NON STAFF DOCTOR 12/19/13
--- OUTSIDE RECORDS SUMMARY | 2024-06-02 18:00 | XMS_ITS ---
Author Organization [facility] Address [address] [place] [address] Care Team Providers Care Sales Development Coordinator Name Role Phone Unavailable Unavailable Unavailable Surgery Details Not on file Complications Check Surgery Details section. Procedure Estimated Blood Loss Check Surgery Details section. Procedure Findings Check Surgery Details section. Procedure Specimens Taken Check Surgery Details section.
--- OUTSIDE RECORDS SUMMARY | 2024-06-02 18:00 | XMS_ITS | Continuity of Care Document ---
Author Organization [facility] Address [address] [place] [address] Phone Care Team Providers Care Reactor Technician Name Role Phone Mariusz SHETHMitali Unavailable Unavailable [...] New/estab Mod-hi 60 [facility], [address], [place], [place], [id number], [place] tel:[phone] [facility] No Information Mariusz Mitali. [address], [address], [place], [address], [place]. tel:[phone] Referring Provider: Abraham Ruiz DO, [address] [facility], [place], [address]. tel:[phone] Family History Family Member Type Diagnosis Age At Onset No Information Payers Payer name Insurance type Covered constitution party ID Nahid cervantess) Joseph WASHBURN [id number] Social History Type Description Quantity Date Captured [...]
--- OUTSIDE RECORDS SUMMARY | 2024-06-02 18:00 | XMS_ITS | Continuity of Care Document ---
Author Organization [facility] Address [address] [place] [address] Phone Care Team Providers Care Cook Frozen Dessert Name Role Phone Jama APPIAH, Billy Unavailable Unavailable Advance Directives Directive Yes / No Effective Date File Name No Information Encounters Encounter Description Practice Location Reason(s) For Visit Diagnoses Date Provider Providers Copied on Encounter [facility], [address], [place], [place], [id number], [place] tel:[phone] [facility] No Information Jama Cervantes. [facility], [address] [place] [address], [address], [id number], [place]. tel:[phone] Family History Family Member Type Diagnosis Age [...]
--- OUTSIDE RECORDS SUMMARY | 2024-06-02 18:01 | XMS_ITS | Continuity of Care Document ---
Author Organization [facility] Address [address] [place] [address] Phone Care Team Providers Care Safety Glass Installer Name Role Phone Mariusz SHETHMitali Unavailable Unavailable [...] Cons New/estab Mod-hi 60 [facility], [address] [facility] [address], [place], [place], [id number], [place] tel:[phone] [facility] No Information Mariusz Mitali. [address], [address], [place], [address], [place]. tel:[phone] Referring Provider: Abraham Ruiz DO, [address] [facility] [address] [facility] [place], [place], [address]. tel:[phone] Family History Family Member Type Diagnosis Age At Onset No Information Payers Payer name Insurance type Covered constitution party ID Nahid cervantess) Joseph WASHBURN [id number] Social History Type Description Quantity Date Captured [...]
--- OUTSIDE RECORDS SUMMARY | 2024-06-02 18:01 | XMS_ITS | Continuity of Care Document ---
Author Organization [facility] Address [address] [place] [address] Phone Care Team Providers Care Mixing Operator Name Role Phone Jama APPIAH, Billy Unavailable Unavailable Advance Directives Directive Yes / No Effective Date File Name No Information Encounters Encounter Description Practice Location Reason(s) For Visit Diagnoses Date Provider Providers Copied on Encounter [facility], [address], [place], [place], [id number], [place] tel:[phone] [facility] No Information Jama Cervantes. [facility], [address] [place] [address], [address], [id number], [place]. tel:[phone] Family History Family Member Type Diagnosis Age At Onset No Information Payers Payer name Insurance type Covered democrat ID Authoriza tion(s) No Information Social History [...]
[2024-06-02] MEDS: dexAMETHasone 10 MG/ML inj PO (18:02)
== END 2024-06-02 18:21 | disposition home or self-care (01) ==
PROVIDERS: Emergency Provider Emergency Medicine Emergency Medical Services; PCP Nurse Practitioner Family
DX: J32.9 Chronic sinusitis, unspecified (principal); G62.9 Polyneuropathy, unspecified; H10.9 Unspecified conjunctivitis
CPT/HCPCS: 99283; 99284; J1100

== ENCOUNTER 2024-06-04 14:29 | Outpatient (CLI) | payer MEDICARE, SELFPAY ==
--- OUTSIDE RECORDS SUMMARY | 2024-06-04 14:36 | XMS_ITS | Encounter Summary ---
Author Organization [facility] er Address [address] [place] [address] Care Team Providers Care Certified Pharmacy Technician Name Role Phone None, Pcp Primary Care Provider Unavailabl e Encounter Details Date Type Department Care Team (Late st Contact Info) Description 02/14/2024 Telephone [place] [address] [place] [address] None, Pcp [address] [place] [address] Social History Tobacco Use Types Packs/Day Years [...] re latives? Once a week 02/06/2024 Attends [employer] Not on file 02/05 Do you belong to any clubs o r organizations such as hindu groups, unions, fraternal or athletic groups, or [...] Recorded PHQ-9 Total Score 0 02/06/2024 [facility] [place] of Occupat ional Health - Occupational Stress [...] any time in the past 12 m [facility], were you homeless or living [...] has an appointment with [facility] in [place] next week. Will be in touch at local [facility] clinic if needed for pre-ops, etc. * [...] on filedocumented in this encounter Care Teams Certified Pharmacy Technician Relationship Specialty Start Date End Date None, Pcp [address] [facility] [place] [address] PCP - General Alignment Mechanic 10/22/21 documented as of this encounter
--- OUTSIDE RECORDS SUMMARY | 2024-06-04 14:36 | XMS_ITS | Encounter Summary ---
Author Organization [facility] er Address [address] [place] [address] Care Team Providers Care Clinching Machine Operator Name Role Phone None, Pcp Primary Care Provider Unavailabl e Reason for Visit * Reason Comments Nasal Congestion Follow-up from previ ous visit unresolved. Encounter Details Date Type Department Care Team ([facility] st Contact Info) Description 04/02/2024 11:00 AM CDT Office Visit [address] [address] Shay Cohen, DNP, SALES BRANCH MANAGER, LAMINATE FLOOR INSTALLER [address] [place] [phone] Nose septum deviation (Primary Dx); Nasal drainage [...] re latives? Once a week 02/06/2024 Attends [facility] [facility] Not on file 02/05 Do you belong to any clubs o r organizations such as muslim groups, unions, fraternal or athletic groups, or [...] Date Recorded PHQ-9 Total Score 0 02/06/2024 [facility] - Occupational Stress Questionnaire Answer Date Recorded [...] any time in the past 12 m [facility], were you homeless or living in a [facility]p (including now)? No 02/06/2024 Sex and Gender [...] Please reach out to your ENT in [facility] at [facility]. Please provide usan update after you get [...] with an ear nose throat physician at [facility] in [place], [place]. He states they performed a procedure [...] significant facial deformities or scars. Mouth/Throat: Lips: [place]. Mouth: Mucous membranes are moist. Pharynx: Oropharynx [...] rinses. We also discussed consistent use of vnjg-chr-deuexnj medications in the meantime. Other Visit Diagnoses [...] rinses. We also discussed consistent use of lkjz-jiz-hcwppdu medications in the meantime. documented in this encounter Plan of Treatment Not on file documented as of this encounter Visit Diagnoses Diagnosis Nose septum deviation- Primary Deviated nasal septum Nasal drainage documented in this encounter Care Teams Clinching Machine Operator Relationship Specialty Start Date End Date None, Pcp [address] [place] [phone] PCP - General Primer Assembler 10/22/21 documented as of this encounter
--- OUTSIDE RECORDS SUMMARY | 2024-06-04 14:36 | XMS_ITS | Clinical Summary ---
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 Chronic, continued pain. Cymbalta no [...] Description 05/14/2024 7:35 PM CDT Ancillary Procedure [facility] [address] [place] [phone] 05/14/2024 6:00 PM CDT Office Visit [facility] [address] [place] [phone] Milton Youngblood PA Chest Wall Pain 05/14/2024 Travel 05/07/2024 6:33 PM CDT - 05/07/2024 7:18 PM CDT Emergency [facility] [address] [place] [address] Elsa Canada MD Nasal disorder (Primary Dx) Discharge Disposition: Home Self Care 05/07/2024 Travel 04/05/2024 6:20 PM CDT Office Visit [facility] [address] [place] [address] Glenis Muller, HAND LEATHER TRIMMER Nose Problem (Sores in nose- painful. First [...] 50-64 05/06/2024 Medical Devices Implanted Type Area Journeyman Sheet Metal Worker Device Identifier Shelf Expiration Date Model / Serial / Lot Mesh Ventral 3x6in Bard Soft - [id number] Implanted:Qty: 2 on 12/14/2017 by Victorino Sanders MD at [facility] Bilateral: Inguinal [employer] 09/01/2022 [id number] / / [id number] Description:BARD Soft Mesh, Bilateral Inguinal Procedures Procedure [...] 7:02 AM 12/14/2017 3:36 PM Care Teams Roving Carrier Relationship Specialty Start Date End Date Rhett Tompkins PA [address] [place] [address] PCP - General Physician Manager In Training 06/08/23 Nonstaff, Doctor NON STAFF DOCTOR 12/19/13
--- OUTSIDE RECORDS SUMMARY | 2024-06-04 14:36 | XMS_ITS | Encounter Summary ---
Author Organization [facility] Address [address] [place] [address] Care Team Providers Care Quarry Plug And Feather Driller Name Role Phone Elsewhere, Pcp Primary Care Provider Unavailabl e Reason for Visit * Reason Comments Leg Pain Encounter Details Date Type Department Care Team (Late st Contact Info) Description 06/01/2024 8:56 PM CDT - 06/01/2024 11:[address] [facility] Emergency Department [address] [place] [phone] Discharge Disposition: Left Against Medical Advice or [...] CDT Diagnostic Division of Pulmonary Medicine in [place], [place] [address] [place] [address] Pardeep Bartholomew Jr., M.D. 200 [place] [address] 06/07/2024 8:10 AM CDT Appointment Department of Laboratory Medicine and Pathology, [facility], in [place], [place] [address] [place] [phone] Pardeep Bartholomew Jr., M.D. [address] [place] [phone] 06/07/2024 9:00 AM CDT Comprehensive Visit Division of Pulmonary Medicine in [place], [place] [address] [place] [phone] Carolyn Murray M.D. [address] [place] [phone] documented as of this encounter Visit Diagnoses Not on filedocumented in this encounter Additional Health Concerns Assessment Noted Time PHQ-9 Depression Total Score: 4 09/19/19 18 11:05 AM OUTDOOR STUDIES PROFESSOR documented as of this encounter Care Teams Quarry Plug And Feather Driller Relationship Specialty Start Date End Date Elsewhere, Pcp PCP - General 12/04/21 documented as of this encounter
--- OUTSIDE RECORDS SUMMARY | 2024-06-04 14:36 | XMS_ITS ---
Author Organization [facility] Address [address] [place] [address] Care Team Providers Care Riveter Automobile Brakes Name Role Phone Unavailable Unavailable Unavailable Surgery Details Not on file Complications Check Surgery Details section. Procedure Estimated Blood Loss Check Surgery Details section. Procedure Findings Check Surgery Details section. Procedure Specimens Taken Check Surgery Details section.
--- OUTSIDE RECORDS SUMMARY | 2024-06-04 14:36 | XMS_ITS | Encounter Summary ---
Author Organization [facility] Address [address] [place] [address] Care Team Providers Care Care Analyst Name Role Phone Elsewhere, Pcp Primary Care Provider Unavailabl e Reason for Referral * Outpatient (Routine) - Authorized Specialty Diagnoses / Procedures Referred By Humberto t Referred To Contact Pulmonary Medicine Diagnoses Nodules Pulmonary Multiple Abnormal Findings On Diagnostic Imaging Of Other Specified Body Structures Maureen Vasques C.N.P. [address] [place] [address] [facility] Referral ID Status Reason Start Date Expiration Date V isits Requested Visits Authorized [id number] Authorized 05/30/2024 11/29/2025 1 1 Encounter Details Date Type Department Care Team (Late st Contact Info) Description 05/29/2024 [facility] [address] [place] [address] Maureen Vasques, C.N.P. [address] [place] [phone] Abnormal Findings On Diagnostic Imaging Of Other [...] CDT Diagnostic Division of Pulmonary Medicine in [place], [place] [address] [place] [phone] Pardeep Bartholomew Jr., M.D. [address] [place] [phone] 06/07/2024 8:10 AM CDT Appointment Department of Laboratory Medicine and Pathology, [facility] in [place], [place] [address] [place] [phone] Pardeep Bartholomew Jr., M.D. [address] [place] [phone] 06/07/2024 9:00 AM CDT Comprehensive Visit Division of Pulmonary Medicine in [place], [place] [address] [place] [phone] Carolyn Murray M.D. [address] [place] [phone] Scheduled Referrals Name Type Priority Associated Diagnoses [...] Total Score: 4 09/19/19 18 11:05 AM DRAFTING ENGINEER documented as of this encounter Care Teams Care Analyst Relationship Specialty Start Date End Date Elsewhere, Pcp PCP - General 12/04/21 documented as of this encounter
--- OUTSIDE RECORDS SUMMARY | 2024-06-04 14:36 | XMS_ITS | Encounter Summary ---
Author Organization [facility] Address [address] [place] [address] Care Team Providers Care Bessemer Converter Operator Name Role Phone Elsewhere, Pcp Primary Care Provider Unavailabl e Encounter Details Date Type Department Care Team (Late st Contact Info) Description 05/31/2024 Documentation Division of Pulmonary Medicine in [place], [place] [address] [place] [phone] Pardeep Bartholomew Jr., M.D. [address] [place] [address] Social History Tobacco Use Types Packs/Day Years [...] to include alpha-1 antitrypsin, then okay for [facility] visit. documented in this encounter Plan of Treatment Upcoming Encounters Date Type Department Care Team (Late st Contact Info) Description 06/07/2024 7:00 AM CDT Diagnostic Division of Pulmonary Medicine in [place], [place] [address] [place] [phone] Pardeep Bartholomew Jr., M.D. [address] [place] [phone] 06/07/2024 8:10 AM CDT Appointment Department of Laboratory Medicine and Pathology, [facility] in [place], [place] [address] [place] [phone] Pardeep Bartholomew Jr., M.D. [address] [place] [phone] 06/07/2024 9:00 AM CDT Comprehensive Visit Division of Pulmonary Medicine in [place], [place] [address] [place] [phone] Carolyn Murray M.D. [address] [place] [phone] Scheduled Orders Name Type Priority Associated Diagnoses [...] (HCC) 1 Occurrences starting 05/31/2024 until 05/31/2025 Mfgek-8-[id number] Proteotype S/Z by LC-MS/MS Lab Routine Tobacco Use Abuse Tobacco Smoking Nodule Pulmonary Emphysema (HCC) 1 Occurrences starting 05/31/2024 until 05/31/2025 documented as of this encounter Visit Diagnoses Diagnosis Tobacco Use- Primary Abuse Tobacco Smoking Nodule Pulmonary Emphysema (HCC) documented in this encounter Additional Health Concerns Assessment Noted Time PHQ-9 Depression Total Score: 4 09/19/19 18 11:05 AM FIBERGLASS CONTAINER WINDING OPERATOR documented as of this encounter Care Teams Bessemer Converter Operator Relationship Specialty Start Date End Date Elsewhere, Pcp PCP - General 12/04/21 documented as of this encounter
--- OUTSIDE RECORDS SUMMARY | 2024-06-04 14:36 | XMS_ITS | Clinical Summary ---
Author Organization [facility] Address [address] [place] [address] Care Team Providers Care Heel Sorter Name Role Phone Elsewhere, Pcp Primary Care Provider Unavailabl e Source Comments Patient records contain information from all sites at [facility]. For routine questions regarding patient records, call [phone] during business hours, M-F 8:00 AM - 5:00 PM Central Time. Record requests for emergency care only can be directed to [phone] at any time.[facility] Allergies Active Allergy Reactions Criticality Noted Date [...] Previously on Methadone with Dr. Ruiz ( [place]) around ??2009?? Chronic, continued pain. Cymbalta no [...] CDT - 06/01/2024 11:13 PM CDT Emergency [facility] Emergency Department [address] [place] [phone] Discharge Disposition: Left Against Medical Advice or Discontinued Care 05/31/2024 Documentation Division of Pulmonary Medicine in [place], [place] [address] [place] [phone] Pardeep Bartholomew Jr., M.D. 05/29/2024 [facility] [address] [place] [address] Maureen Vasques, C.N.P. Abnormal Findings On Diagnostic [...] lb 14 oz) 10/17/2023 10:45 A M TAP OUT OPERATOR Height 179 cm (5' 10.47) 10/17/2023 10:45 AM CS T Body Mass Index 23.91 10/17/2023 10:45 AM TAP OUT OPERATOR Plan of Treatment Upcoming Encounters Date Type Department Care Team (Late st Contact Info) Description 06/07/2024 7:00 AM CDT Diagnostic Division of Pulmonary Medicine in [place], [place] [address] [place] [phone] Pardeep Bartholomew Jr., M.D. [address] [place] [phone] 06/07/2024 8:10 AM CDT Appointment Department of Laboratory Medicine and Pathology, [facility] in [place], [place] [address] [place] [address] Pardeep Bartholomew Jr., M.D. [address] [place] [phone] 06/07/2024 9:00 AM CDT Comprehensive Visit Division of Pulmonary Medicine in [place], [place] [address] [place] [phone] Carolyn Murray M.D. [address] [place] [address] [place] [phone] Health Maintenance Due Date Last Done Comments [...] LIPID PANEL, S Routine 10/17/2023 11:55 AM TAP OUT OPERATOR Encounter For Screening For Cardiovascular Disorders COMPREHENSIVE METABOLIC PANEL, S/P Routine 10/17/2023 11:55 AM TAP OUT OPERATOR Onychomycosis COLONOSCOPY Routine 04/08/2015 from Last 3 Months or Most Recently Relevant to Health Maintenance Results * CT chest abdomen pelv w con-Outside CT Body (05/23/2024 4:45 PM CDT) Narrative [facility] - 05/29/2024 9:53 AM CDT This order [...] System IMG CT PROCEDURES Performing Organization Address [facility] Co de Phone Number IIMS NA * XR chest 2V-Outside Chest Xray (05/17/2024 11:20 AM CDT) Narrative [facility] - 05/29/2024 9:43 AM CDT [...] DIAGNOSTIC IM AGING PROCEDURES Performing Organization Address [facility] Co de Phone Number IIMS NA * XR abdomen min 2V-Outside Gen Dx Stdy (05/17/2024 11:15 AM CDT) Narrative [facility] - 05/29/2024 9:43 AM CDT [...] NA * Lipid Panel (10/17/2023 11:55 AM TAP OUT OPERATOR) Triglycerides 71 mg/dL 10/17/2023 2:19 PM TAP OUT OPERATOR OWAT Comment: ----REFERENCE VALUE---- Normal: <150 mg/dL Borderline High: 150-199 mg/dL High: 200-499 mg/dL Very High: > or =500 mg/dL Cholesterol, Total 155 mg/dL 2023 2:19 PM TAP OUT OPERATOR OWAT Comment: ----REFERENCE VALUE---- Desirable: < 200 mg/dL Borderline High: 200 - 239 mg/dL High: > or = 240 mg/dL Cholesterol, LDL, Calculated 81 mg/dL 10/17/2023 2:19 PM TAP OUT OPERATOR OWAT Comment: ----REFERENCE VALUE---- Desirable: <100 mg/dL Above Desirable: 100-129 mg/dL Borderline High: 130-159 mg/dL High: 160-189 mg/dL Very High: >=190 mg/dL ----ADDITIONAL INFORMATION---- LDL cholesterol calculated using the Borrero/NIH equation. Cholesterol, HDL 60 >=40 mg/dL 10/17/19 2:19 PM TAP OUT OPERATOR OWAT Cholesterol, Non-HDL, Calculated 95 mg/dL 10/17/2023 2:19 PM TAP OUT OPERATOR OWAT Comment: ----REFERENCE VALUE---- Desirable: <130 mg/dL Above Desirable: 130-159 mg/dL Borderline High: 160-189 mg/dL High: 190-219 mg/dL Very High: > or =220 mg/dL Fasting (8 HR or more) Yes 10/17/2023 1:32 PM TAP OUT OPERATOR OWAT Blood (Blood, Venous) 10/17/2023 11:55 AM TAP OUT OPERATOR 10/17/2023 1:32 PM TAP OUT OPERATOR Rhett LeeC. LAB BLOOD ADD- ON [facility] [address] [place] [address], [place] OWAT [facility] in [place] [address] [place] [address] * Comprehensive Metabolic Panel (10/17/2023 11:55 AM TAP OUT OPERATOR) Potassium, P 4.4 3.6 - 5.2 mmol/L 10/17/2023 2:19 PM TAP OUT OPERATOR OWAT Sodium, P 142 135 - 145 mmol/L 10/17/2023 2:19 PM TAP OUT OPERATOR OWAT Chloride, P 104 98 - 107 mmol/L 10/17/2023 2:19 PM TAP OUT OPERATOR OWAT Bicarbonate, P 28 22 - 29 mmol/L 10/17/2023 2:19 PM TAP OUT OPERATOR OWAT Anion Gap, P 10 7 - 15 10/17/2023 2:19 PM TAP OUT OPERATOR OWAT BUN (Blood Urea Nitrogen), P 17 8 - 24 mg/dL 10/17/2023 2:19 PM TAP OUT OPERATOR OWAT Creatinine 0.76 0.74 - 1.35 mg/dL 10/17/2023 2:19 PM TAP OUT OPERATOR OWAT Estimated GFR (eGFR) >90 >=60 mL/min/BS A 10/17/2023 2:19 PM TAP OUT OPERATOR OWAT Comment: Estimated GFR calculated using the 2020 CKD_EPI creatinine equation. Calcium, Total, P 9.5 8.8 - 10.2 mg/dL 10/17/2023 2:19 PM TAP OUT OPERATOR OWAT Glucose, P 120 70 - 140 mg/dL 10/17/2023 2:19 PM TAP OUT OPERATOR OWAT Protein, Total, P 7.5 6.3 - 7.9 g/dL 10/17/2023 2:19 PM TAP OUT OPERATOR OWAT Albumin, P 4.5 3.5 - 5.0 g/dL 10/17/2023 2:19 PM TAP OUT OPERATOR OWAT Aspartate Aminotransferase (AST), P 31 8 - 48 U/L 10/17/2023 2:19 PM TAP OUT OPERATOR OWAT Alkaline Phosphatase, P 77 40 - 129 U/L 10/17/2023 2:19 PM TAP OUT OPERATOR OWAT Alanine Aminotransferase (ALT), P 21 7 - 55 U/L 10/17/2023 2:19 PM TAP OUT OPERATOR OWAT Bilirubin, Total, P 0.5 0.0 - 1.2 mg/dL 10/17/2023 2:19 PM TAP OUT OPERATOR OWAT Blood (Blood, Venous) 10/17/2023 11:55 AM TAP OUT OPERATOR 10/17/2023 1:32 PM TAP OUT OPERATOR Marlyn Cintron P.A.-C. LAB BLOOD ADD-ON [facility] [address] [place] [address], [place] OWAT [facility] in [place] [address] [place] [address] * Colonoscopy (04/08/2015) EXT Colonoscopy Abnormal - See Scanned Report for Details Normal - See Scanned Report for Details, HIMS - Report Received and Scanned Comment:see care everywhere for result details Historical Provider GI PROCEDURE ORDERAB LES from Last 3 Months or Most Recently Relevant to Health Maintenance Care Teams Heel Sorter Relationship Specialty Start Date End Date Elsewhere, Pcp PCP - General 12/04/21
--- OUTSIDE RECORDS SUMMARY | 2024-06-04 14:36 | XMS_ITS | Referral Summary ---
Author Organization [facility] Address [address] [place] [address] Care Team Providers Care Shove Up Name Role Phone Elsewhere, Pcp Primary Care Provider Unavailabl e Source Comments Patient records contain information from all sites at [facility]. For routine questions regarding patient records, call [phone] during business hours, M-F 8:00 AM - 5:00 PM Central Time. Record requests for emergency care only can be directed to [phone] at any time.[facility] Encounters Date Type Department Care Team Description 06/01/2024 8:56 PM CDT - 06/01/2024 11:13 PM CDT Emergency [facility] Emergency Department [address] [place] [address] Discharge Disposition: Left Against Medical Advice or Discontinued Care 05/31/2024 Documentation Division of Pulmonary Medicine in [place], [place] [address] [place] [address] Pardeep Bartholomew Jr., M.D. 05/29/2024 [facility] [address] [place] [address] Maureen Vasques, C.N.P. 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 Ruiz ( [place]) around ??2009?? Chronic, continued pain. Cymbalta no [...] lb 14 oz) 10/17/2023 10:45 A M TRANSONIC ENGINEER Height 179 cm (5' 10.47) 10/17/2023 10:45 AM CS T Body Mass Index 23.91 10/17/2023 10:45 AM TRANSONIC ENGINEER Plan of Treatment Upcoming Encounters Date Type Department Care Team (Late st Contact Info) Description 06/07/2024 7:00 AM CDT Diagnostic Division of Pulmonary Medicine in [place], [place] [address] [place] [phone] Pardeep Bartholomew Jr., M.D. [address] [place] [phone] 06/07/2024 8:10 AM CDT Appointment Department of Laboratory Medicine and Pathology, [facility] in [place], [place] [address] [place] [address] Pardeep Bartholomew Jr., M.D. [address] [place] [phone] 06/07/2024 9:00 AM CDT Comprehensive Visit Division of Pulmonary Medicine in [place], [place] [address] [place] [phone] Carolyn Murray M.D. [address] [place] [address] [place] [phone] Procedures Procedure Name Priority Date/Time Associated Diagnosis Comments OUTSIDE CT BODY Routine 05/23/2024 4:45 PM CDT OUTSIDE DX CHEST Routine 05/17/2024 11:2 0 AM CDT OUTSIDE DX GENERAL Routine 05/17/2024 11 :15 AM CDT LIPID PANEL, S Routine 10/17/2023 11:55 AM TRANSONIC ENGINEER Encounter For Screening For Cardiovascular Disorders COMPREHENSIVE METABOLIC PANEL, S/P Routine 10/17/2023 11:55 AM TRANSONIC ENGINEER Onychomycosis COLONOSCOPY Routine 04/08/2015 from Last 3 [...] Chest Xray (05/17/2024 11:20 AM CDT) Narrative [facility] - 05/29/2024 9:43 AM CDT This order has been created and auto-finalized to support the import of outside images. If available, original interpretation can be found on the Media Tab in Chart Review, in Document Viewer, as an image in QREADS or as an Addendum. If a re-interpretation or overread is required please follow defined workflow.?? Provider Not In System [facility] [place] [facility] PROCED[facility] Performing Organization Address City/[facility]/ZIP Co de Phone Number II NA * XR abdomen min 2V-Outside Gen Dx Stdy (05/17/2024 11:15 AM CDT) Narrative [facility] - 05/29/2024 9:43 AM CDT This order has been created and auto-finalized to support the import of outside images. If available, original interpretation can be found on the Media Tab in Chart Review, in Document Viewer, as an image in QREADS or as an Addendum. If a re-interpretation or overread is required please follow defined workflow.?? Provider Not In System [facility] [place] [facility]ED[facility] Performing Organization Address [facility] Co de Phone Number JOSE LUIS NA * Lipid Panel (10/17/2023 11:55 AM TRANSONIC ENGINEER) Triglycerides 71 mg/dL 10/17/2023 2:19 PM TRANSONIC ENGINEER OWAT Comment: ----REFERENCE VALUE---- Normal: <150 mg/dL Borderline High: 150-199 mg/dL High: 200-499 mg/dL Very High: > or =500 mg/dL Cholesterol, Total 155 mg/dL 2023 2:19 PM TRANSONIC ENGINEER OWAT Comment: ----REFERENCE VALUE---- Desirable: < 200 mg/dL Borderline High: 200 - 239 mg/dL High: > or = 240 mg/dL Cholesterol, LDL, Calculated 81 mg/dL 10/17/2023 2:19 PM TRANSONIC ENGINEER OWAT Comment: ----REFERENCE VALUE---- Desirable: <100 mg/dL Above Desirable: 100-129 mg/dL Borderline High: 130-159 mg/dL High: 160-189 mg/dL Very High: >=190 mg/dL ----ADDITIONAL INFORMATION---- LDL cholesterol calculated using the Borrero/NIH equation. Cholesterol, HDL 60 >=40 mg/dL 10/17/19 2:19 PM TRANSONIC ENGINEER OWAT Cholesterol, Non-HDL, Calculated 95 mg/dL 10/17/2023 2:19 PM TRANSONIC ENGINEER OWAT Comment: ----REFERENCE VALUE---- Desirable: <130 mg/dL Above Desirable: 130-159 mg/dL Borderline High: 160-189 mg/dL High: 190-219 mg/dL Very High: > or =220 mg/dL Fasting (8 HR or more) Yes 10/17/2023 1:32 PM TRANSONIC ENGINEER OWAT Blood (Blood, Venous) 10/17/2023 11:55 AM TRANSONIC ENGINEER 10/17/2023 1:32 PM TRANSONIC ENGINEER Rhett Tompkins P.A.-C. LAB BLOOD ADD- ON [facility] [address] [place] [address], [facility] OWAT [facility] [place] [address] [place] [address] * Comprehensive Metabolic Panel (10/17/2023 11:55 AM TRANSONIC ENGINEER) Potassium, P 4.4 3.6 - 5.2 mmol/L 10/17/2023 2:19 PM TRANSONIC ENGINEER OWAT Sodium, P 142 135 - 145 mmol/L 10/17/2023 2:19 PM TRANSONIC ENGINEER OWAT Chloride, P 104 98 - 107 mmol/L 10/17/2023 2:19 PM TRANSONIC ENGINEER OWAT Bicarbonate, P 28 22 - 29 mmol/L 10/17/2023 2:19 PM TRANSONIC ENGINEER OWAT Anion Gap, P 10 7 - 15 10/17/2023 2:19 PM TRANSONIC ENGINEER OWAT BUN (Blood Urea Nitrogen), P 17 8 - 24 mg/dL 10/17/2023 2:19 PM TRANSONIC ENGINEER OWAT Creatinine 0.76 0.74 - 1.35 mg/dL 10/17/2023 2:19 PM TRANSONIC ENGINEER OWAT Estimated GFR (eGFR) >90 >=60 mL/min/BS A 10/17/2023 2:19 PM TRANSONIC ENGINEER OWAT Comment: Estimated GFR calculated using the 2020 CKD_EPI creatinine equation. Calcium, Total, P 9.5 8.8 - 10.2 mg/dL 10/17/2023 2:19 PM TRANSONIC ENGINEER OWAT Glucose, P 120 70 - 140 mg/dL 10/17/2023 2:19 PM TRANSONIC ENGINEER OWAT Protein, Total, P 7.5 6.3 - 7.9 g/dL 10/17/2023 2:19 PM TRANSONIC ENGINEER OWAT Albumin, P 4.5 3.5 - 5.0 g/dL 10/17/2023 2:19 PM TRANSONIC ENGINEER OWAT Aspartate Aminotransferase (AST), P 31 8 - 48 U/L 10/17/2023 2:19 PM TRANSONIC ENGINEER OWAT Alkaline Phosphatase, P 77 40 - 129 U/L 10/17/2023 2:19 PM TRANSONIC ENGINEER OWAT Alanine Aminotransferase (ALT), P 21 7 - 55 U/L 10/17/2023 2:19 PM TRANSONIC ENGINEER OWAT Bilirubin, Total, P 0.5 0.0 - 1.2 mg/dL 10/17/2023 2:19 PM TRANSONIC ENGINEER OWAT Blood (Blood, Venous) 10/17/2023 11:55 AM TRANSONIC ENGINEER 10/17/2023 1:32 PM TRANSONIC ENGINEER Marlyn Cintron P.A.-C. LAB BLOOD [facility] [address] [place] [address], [facility] OWAT [facility] in [place] [address] [place] [address] * Colonoscopy (04/08/2015) EXT Colonoscopy Abnormal - See Scanned Report for Details Normal - See Scanned Report for Details, HIMS - Report Received and Scanned Comment:see care everywhere for result details Historical Provider GI PROCEDURE ORDERAB LES from Last 3 Months or Most Recently Relevant to Health Maintenance Care Teams Shove Up Relationship Specialty Start Date End Date Elsewhere, Pcp PCP - General 12/04/21
--- OUTSIDE RECORDS SUMMARY | 2024-06-04 14:36 | XMS_ITS | Encounter Summary ---
Author Organization [facility] Address [address] [place] [address] Care Team Providers Care Line Assigner Name Role Phone None, Pcp Primary Care Provider Unavailabl e Reason for Visit * Reason Comments Med Refill Encounter Details Date Type Department Care Team (Late st Contact Info) Description 02/15/2024 Refill [place] [address] [place] [address] Shay Cohen, DNP, SERVICE STATION CONSOLE OPERATOR, LOAD DROPPER [address] [facility] [address] [place] [address] Nose septum deviation Social History Tobacco Use [...] re latives? Once a week 02/06/2024 Attends [employer] Not on file 02/05 Do you belong to any clubs o r organizations such as bahai groups, unions, fraternal or athletic groups, or [...] Date Recorded PHQ-9 Total Score 0 02/06/2024 [facility] of Occupat ional Health - Occupational Stress [...] time in the past 12 m [facility], were you homeless or living in a skilled nursing (including now)? No 02/06/2024 Sex and Gender [...] septum documented in this encounter Care Teams Line Assigner Relationship Specialty Start Date End Date None, Pcp [address] [place] [phone] PCP - General Journeyman Electrician Pv Installer 10/22/21 documented as of this encounter
--- OUTSIDE RECORDS SUMMARY | 2024-06-04 14:36 | XMS_ITS | Clinical Summary ---
Author Organization [facility] Address [address] [place] [address] Care Team Providers Care Slipcover Cutter Name Role Phone None, Pcp Primary Care [...] rinses. We also discussed consistent use of [id number] medications in the meantime. Encounters Date Type Department Care Team Description 04/02/2024 11:00 AM CDT Office Visit [address] [address] Shay Cohen, DNP, MANAGER PERFORMANCE, LEAN SIX SIGMA BLACK BELT Nose septum deviation (Primary Dx); Nasal drainage [...] re latives? Once a week 02/06/2024 Attends [employer]ae[employer] Services Not on file 02/05 Do you belong to any clubs o r organizations such as latter-day groups, unions, fraternal or athletic groups, or [...] Date Recorded PHQ-9 Total Score 0 02/06/2024 [facility] of Occupat ional Health - Occupational Stress [...] No 02/06/2024 Housing Stability Vital Sign Answer Efstus e Recorded In the last 12 months, was t here a time when you were not able to pay the mortgage or rent on time? No 02/06/2024 Number of Times Moved in the Last Year Not on fi le 02/06/2024 At any time in the past 12 m [facility], were you homeless or living [...] this topic Medical Devices Implanted Type Area Linen Room Custodian Device Identifier Shelf Expiration Date Model / Serial / Lot 4.0mm Headed Screw Length 18mm Implanted:Qty: 1 on 10/30/2021 by Yanick Hutchinson DPM at [facility] Screw Left: Foot [id number] / / Care Teams Slipcover Cutter Relationship Specialty Start Date End Date None, Pcp [address] [facility] [place] [address] PCP - General Tank Worker 10/22/21
--- OUTSIDE RECORDS SUMMARY | 2024-06-04 14:36 | XMS_ITS | Continuity of Care Document ---
Author Organization [facility] Address [address] [place] [address] Phone Care Team Providers Care Gunstock Spray Unit Adjuster Name Role Phone Jama APPIAH, Billy Unavailable Unavailable Advance Directives Directive Yes / No Effective Date File Name No Information Encounters Encounter Description Practice Location Reason(s) For Visit Diagnoses Date Provider Providers Copied on Encounter [facility], [address], [place], [place], [id number], [place] tel:[phone] [facility] - [facility] No Information Jama Cervantes. [facility], [address] [place] [address], [address], [id number], [place]. tel:[phone] Family History Family Member Type Diagnosis Age At Onset No Information Payers Payer name Insurance type Covered green party ID Authoriza tion(s) No Information Social [...]
--- OUTSIDE RECORDS SUMMARY | 2024-06-04 14:37 | XMS_ITS | Continuity of Care Document ---
Author Organization [facility] Address [address] [place] [address] Phone Care Team Providers Care Supervisor Mold Cleaning [employer] Storage Name Role Phone Mariusz SHETHMitali Unavailable Unavailable [...] Cons New/estab Mod-hi 60 [facility], [address], [place], [place], [id number], [place] tel:[phone] [facility] No Information Mariusz Mitali. [address], [address], [place], [address], [place]. tel:[phone] Referring Provider: Abraham Ruiz DO, [address] [facility] [address] [facility], [place], [address]. tel:[phone] Family History Family Member Type Diagnosis Age At Onset No Information Payers Payer name Insurance type Covered green party ID Nahid cervantess) Joseph WASHBURN [id number] Social History Type Description Quantity Date Captured [...]
== END 2024-06-04 14:30 | disposition home or self-care (01) ==
PROVIDERS: PCP Nurse Practitioner Family; Visit Provider Nurse Practitioner Family
DX: R20.2 Paresthesia of skin (principal)
CPT/HCPCS: 82607

== ENCOUNTER 2025-05-07 07:34 | Emergency (ER) | payer MEDICARE, SELFPAY ==
--- OUTSIDE RECORDS SUMMARY | 2007-12-19 08:27 | XMS_ITS | Continuity of Care Document ---
Author Organization [facility] Address [address] [place] [address] Phone Care Team Providers Care Barrel And Receiver Aligner Name Role Phone Thavanesa SHETHMitali Unavailable Unavailable Medications Medication Instructions Dosage Effective Dates (start - stop) Status Comments Ambien 10 mg Tab Unknown sig code, RX from another provider - Active methocarbamol 750 mg Tab Unknown sig code, RX from another provider - Active methadone 10 mg Tab Unknown sig code, RX from another provider - Active Trileptal 150 mg Tab Unknown sig code, R X from another provider - Active CYMBALTA 120MGTABLET Unknown sig code, R X from another provider - Active Procedures Procedure Date Offic Cons New/estab Mod-hi 60 08 Advance Directives Directive Yes / No Effective Date File Name No Information Encounters Encounter Description Practice Location Reason(s) For Visit Diagnoses Date Provider Providers Copied on Encounter Offic Cons New/estab Mod-hi 60 [facility], [address], [place], [place], [id number], [place] tel:[phone] [facility] No Information Mariusz Mitali. [address], [address], [place], [address], [place]. tel:[phone] Referring Provider: Abraham Ruiz DO, [address] [facility], [place], [address]. tel:[phone] Family History Family Member Type Diagnosis Age At Onset No Information Payers Payer name Insurance type Covered alliance party ID Nahid cervantess) Joseph [place] [id number] Social History Type Description Quantity Date Captured Comments Sex Male Smoking Status No Information Chief Complaint And Reason For Visit No Information Reason For Referral Reason For Referral No Information History Of Present Illness Encounter Date Complaint History Of Prese nt Illness No Information Functional Status Date Functional Assessmen t No Information Instructions Date Instruction Additional Infor mation No Information Assessments Type Assessment Date No Information Patient Care Teams Name Effective Dates (start - stop) Status Members No Information
[2025-05-07 07:40] VITALS: BP 154/100; PULSE 84; RESP 20; TEMP 35.9; O2SAT 94
--- NOTE | 2025-05-07 08:01 | ED.GENADULT ---
HPI - General Adult General Chief complaint: Abdominal Pain Stated complaint: abdominal pain Time Seen by Provider: 05/07/25 07:53 Source: patient Mode of arrival: ambulatory Limitations: no limitations History of Present Illness HPI narrative: 64-year-old male presenting today with abdominal pain the thumb present for 8 months. He felt that the skin over his abdomen felt funny today so he thought he should be evaluated. He denies nausea or vomiting. No fevers or chills. Difficulty with urination. He feels somewhat constipated he, though his last bowel movement was yesterday. No weight changes. Occult eating, no changes in his appetite. He states the pain is everywhere. Nothing really makes it better or worse. The pain is not stop him from doing his activities of daily living. Patient states that he lives with a few of his children, does not live alone. Has a place to live. Related Data Home Medications ?Medication ?Instructions ?Recorded ?Confirmed No Known Home Medications 05/07/25 05/07/25 Allergies Allergy/AdvReac Type Severity Reaction Status Date / Time naproxen Allergy Mild GI Upset Verified 05/07/25 07:43 Review of Systems Status of ROS: Reports: 10 or more systems reviewed and unremarkable except as noted in History and below [facility] Medical History Lumbar disc herniation ?M51.26 - Other intervertebral disc displacement, lumbar region (ICD-10) Surgical History History of appendectomy ?Z90.49 - Acquired absence of other specified parts of digestive tract (ICD-10) History of tonsillectomy ?Z90.89 - Acquired absence of other organs (ICD-10) History of cervical spinal surgery ?Z98.890 - Other specified postprocedural states (ICD-10) History of foot surgery ?Z98.890 - Other specified postprocedural states (ICD-10) History of hernia repair ?Z98.890 - Other specified postprocedural states (ICD-10) ?Z87.19 - Personal history of other diseases of the digestive system (ICD-10) Family History Father Diabetes Social History Narrative: . Disability for musculoskeletal issues. 9 children. No alcohol. No illicit drug use. Smoker 40+ year history. Smoking Status: Current every day smoker Do you use any of these nicotine containing products: None Second hand tobacco smoke exposure: Yes How often do you have a drink containing alcohol: never How often do you have six or more drinks on one occasion: Never AUDIT-C Alcohol total score: 0 Non-prescribed substance use: denies use service: No Exam Narrative: Exam Narrative: Well-nourished well-developed patient in no acute distress. Alert and oriented x3. Is cooperative, Mood and affect are appropriate. Patient speaks in full sentences without needing to catch their breath. Patient is somewhat disheveled. HEENT: Normocephalic atraumatic. Pupils are equally round reactive to light. Extraocular muscles are intact. Conjunctivae are moist without any icterus noted. Moist mucous membranes. Posterior pharynx is normal. Cardiovascular: Heart is regular rate and rhythm S1 and S2 are present without any murmurs. Lungs: Clear to auscultation bilaterally no wheezes rhonchi or rales are appreciated. Patient takes deep breaths without any discomfort. Abdomen: Soft and nontender nondistended with normal bowel sounds. Extremities: Bilateral lower extremities show trace edema bilaterally. Normal DP and PT pulses. Skin: Well perfused without any obvious rashes. Const: Vital Signs, click to edit/add: Vital Signs - 24 hr 05/07/25 07:40 Temperature 96.7 F L Pulse Rate [Pulse Oximeter] 84 Respiratory Rate 20 Blood Pressure [Ri ght Upper Arm] 154/100 H Pulse Oximetry 94 Oxygen Delivery Me thod Room Air Course Course ED Course: Although patient's abdominal exam is quite unremarkable, we discussed doing blood work and patient was in agreement. Blood work is entirely unremarkable. Vital Signs Vital signs: Initial Vital Signs Temperature 96.7 F L 05/07/25 07:40 Temperature Source Temporal Artery Scan 05/07/25 07:40 Pulse Rate 84 05/07/25 07:40 Respiratory Rate 20 05/07/25 07:40 Blood Pressure 154/100 H 05/07/25 07:40 Blood Pressure Mean 118 H 05/07/25 07:40 Blood Pressure Position Sitting 05/07/25 07:40 Pulse Oximetry 94 05/07/25 07:40 Oxygen Delivery Method Room Air 05/07/25 07:40 Vital Signs Temperature 96.7 F L 05/07/25 07:40 Pulse Rate 84 05/07/25 07:40 Respiratory Rate 20 05/07/25 07:40 Blood Pressure 154/100 H 05/07/25 07:40 Pulse Oximetry 94 05/07/25 07:40 Oxygen Delivery Method Room Air 05/07/25 07:40 Temperature 96.7 F L 05/07/25 07:40 Pulse Rate 84 05/07/25 07:40 Respiratory Rate 20 05/07/25 07:40 Blood Pressure 154/100 H 05/07/25 07:40 Pulse Oximetry 94 05/07/25 07:40 Oxygen Delivery Method Room Air 05/07/25 07:40 Medical Decision Making MDM Narrative Medical decision making narrative: 64-year-old male with chronic abdominal pain. Discussed following up with primary. Lab Data Labs: Lab Results 05/07/25 05/07/25 Range/Units 08:15 09:25 WBC 6.01 (4.50-11.00) K/uL RBC 4.88 (4.30-5.90) m/uL Hgb 15.3 (13.5-17.5) gm/dL Hct 46.3 (37.0-53.0) % MCV 95 (80-100) fL MCH 31 (26-34) pg MCHC 33 (32-36) gm/dL RDW Coeff of [place] 13.4 (11.5-15.5) % Plt Count 186 (140-440) K/uL Neut % (Auto) 75.1 H (42.0-72.0) % Lymph % (Auto) 15.8 L (20-44) % [place] % (Auto) 6.5 (0.0-11.0) % Eos % (Auto) 2.0 (0.0-7.0) % Baso % (Auto) 0.3 (0.0-3.0) % Neut # (Auto) 4.50 (1.7-7.0) K/uL Lymph # (Auto) 0.90 (0.90-2.90) K/uL [place] # (Auto) 0.40 (0.00-0.90) K/UL Eos # (Auto) 0.12 (0.00-0.50) K/uL Baso # (Auto) 0.02 (0.00-0.30) K/uL Abs Immat Gran (auto) 0.02 (0.00-0.30) K/uL Imm/Tot Granulo (auto) 0.3 % Sodium 138 (135-149) mmol/L Potassium 4.3 (3.6-5.1) mmol/L Chloride 103 (96-114) mmol/L Carbon Dioxide 28 (20-32) mmol/L Anion Gap 7 (7-15) mEq/L BUN 15 (7-30) mg/dL Creatinine 0.9 (0.5-1.5) mg/dL Estimated GFR 95 ml/min Glucose 117 H (60-115) mg/dL Lactate 1.5 (0.5-1.9) mmol/L Calcium 9.8 (8.4-10.6) mg/dL Magnesium 2.1 (1.5-2.6) mg/dL Total Bilirubin 0.8 (0.1-1.5) mg/dL Direct Bilirubin 0.3 (0.0-0.5) mg/dL AST 25 (12-35) U/L ALT 17 (4-50) U/L Alkaline Phosphatase 63 (40-150) U/L C-Reactive Protein < 0.5 L (0.5-1.0) mg/dL NT-Pro-B Natriuret Pep < 20 (See Note) pg/mL Total Protein 7.8 (6.0-8.3) g/dL Albumin 4.6 (3.3-5.0) g/dL Lipase 84 (23-300) U/L Urine Color Yellow (Yellow) Urine Appearance Clear (Clear) Urine pH 5.5 (5.0-8.5) Ur Specific [place] 1.020 (1.000-1.030) Urine Protein Negative (Negative) Urine Glucose (UA) Negative (Negative) Urine Ketones Trace A (Negative) Urine Blood Negative (Negative) Urine Nitrite Negative (Negative) Urine Bilirubin Negative (Negative) Urine Urobilinogen 0.2 (0.2-1.0) Ur Leukocyte Esterase Negative (Negative) Urine RBC 0-2 (0-2) Urine WBC 0-2 (0-5) Ur Squamous Epith Cells None (None-Few) Urine Bacteria None (None) Urine Mucus Few A (None) Salicylates < 1.0 L (1.0-10) mg/dL Urine Opiates Screen Negative (Negative) Ur Oxycodone Screen Negative (Negative) Urine Methadone Screen Negative (Negative) Acetaminophen < 10.0 (10.0-30.0) ug/mL Ur Barbiturates Screen Negative (Negative) U Tricyclic Antidepress Negative (Negative) Ur Phencyclidine Scrn Negative (Negative) Ur Amphetamines Screen Negative (Negative) U Methamphetamines Scrn Negative (Negative) U Benzodiazepines Scrn Negative (Negative) Urine Cocaine Screen Negative (Negative) U Marijuana (THC) Screen Negative (Negative) Ur Drug Screen Comment See Note Ethyl Alcohol < 0.01 (0.01-0.03) % Discharge Plan Discharge Clinical Impression: Chronic abdominal pain Patient Disposition: Home, Self-Care Condition: Stable Additional Instructions: Your blood work was entirely normal today which is very reassuring. There is no evidence of infection, inflammation or organ dysfunction. If your discomfort continues I would suggest you follow-up with your primary care provider. Prescriptions: No Action No Known Home Medications Follow Up/Referrals: Maureen Vasques APRN, EMERGENCY DEPARTMENT RN [Primary Care Provider, Family Practice] Stand Alone Forms: 9You Info Instructions
[2025-05-07 08:25] LABS: Lactate* 1.5 mmol/L (0.5-1.9)
--- OUTSIDE RECORDS SUMMARY | 2025-05-07 08:30 | XMS_ITS | Clinical Summary ---
Author Organization [facility] Address [address] [place] [address] Care Team Providers Care Metal Control Worker Name Role Phone None Reported, Pcp Primary Care Provider Unavail able Source Comments Patient records contain information from all sites at [facility]. For routine questions regarding patient records, call [phone] during business hours, M-F 8:00 AM - 5:00 PM Central Time. Record requests for emergency care only can be directed to [phone] at any time.[facility] Allergies Active Allergy Reactions Criticality Noted Date Comments Naproxen Other (see comments),GI intolerance Low 06/24/2015 Medications terbinafine (LamISIL) 250 mg tablet Take 1 tablet (250 mg total) by mouth daily. 84 tablet 06/07/20 23 Active ibuprofen (MOTRIN) 600 mg tablet Take 600 mg by mouth every 6 (six) hours as needed. 06/08/20 23 Active sucralfate (CARAFATE) 1 gram tablet Take 1 g by mouth. 10/24/19 24 Active famotidine (PEPCID) 20 mg tablet Take 1 tablet by mouth 2 (two) times a day. 10/24/19 24 Active azelastine (ASTELIN) 137 mcg/spray (0.1 %) nasal spray Administer 2 sprays into each nostril 2 (two) times a day. 10/29/19 24 Active acetaminophen (TylenoL) 325 mg tablet Take 1 tablet by mouth every 6 (six) hours as needed. Active fluticasone propionate (Flonase) 50 mcg/actuation nasal spray Administer 1 spray into nostril(s) 2 (two) times a day. 02/15/20 24 Active lisinopril-hydroCH LOROthiazide 10-12.5 mg per tabletIndications: Infection Staphylococcus Recurrent Personal History Take 1 tablet by mouth daily. 90 tablet 3 07/03/20 24 025 Active ciclopirox (Penlac) 8 % external solutionIndication s:Infection Staphylococcus Recurrent Personal History Apply 1 Application topically at bedtime. Apply over nail and surrounding skin. Apply daily over previous coat. After seven (7) days, may remove with alcohol and continue cycle. 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 Ruiz ( [place]) around ??2009?? Chronic, continued pain. Cymbalta no [...] Encounters Date Type Department Care Team Description 02/21/2025 Clinical Communication Department of Oncology in [place], [place] [address] [place] [address] Chester Caban M.D. 02/21/2025 Clinical Communication Department of Oncology in [place], [place] [address] [place] [address] Chester Caban M.D. Results (CT) 02/19/2025 3:25 PM CDT - 02/19/2025 11:59 PM CDT Hospital Encounter Department of Laboratory Medicine in [place], [place] [address], [place] [address] Chester Caban M.D. 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); Secondary Malignant Neoplasm Lymph Node (HCC) Discharge Disposition: Home or Self Care from Last 3 Months Immunizations Immunization Administration Dates Next Due DTaP ([employer], [employer]) 10/23/2009 Tdap 10/17/2023,10/23/2009 Family History Medical History Relation Name Comments Colon cancer Maternal Grandmother Relation Name Status Comments Maternal Grandmother Social History Tobacco Use Types Packs/Day Years Used Date Smoking Tobacco: Former Cigarettes 1 40 S tarted: 04/1984 Passive Smoke Exposure: Never Smokeless Tobacco: Never Alcohol Use Standard Drinks/Week Comments No 0 (1 standard drink = 0.6 oz pur e alcohol) [facility] Utilities Answer Date Recorded In the past 12 months has e [employer], gas, oil, or water [employer] threatened to shut off services in your home? Patient declined 08/27/2024 Hunger Vital Sign Answer Date Recorded Within the past 12 months, y ou worried that your food would run out before you got the money to buy more. Patient declined Within the past 12 months, t he food you bought just didn't last and you didn't have money to get more. Patient declined PRAPARE - Transportation Answer Date Re corded In the past 12 months, has l ack of transportation kept you from medical appointments or from getting medications? No 08/06 In the past 12 months, has l ack of transportation kept you from meetings, work, or from getting things needed for daily living? No 08/27/2024 Housing Stability Answer Date Recorded What is your living situation today? I have a [facility] place to live 08/27/2024 Sex and Gender Information Value Date Recorded Sex Assigned at Not on file Legal Sex Male 6:28 AM STARCH DUMPER Gender Identity Male 04/28/2018 9:55 AM CDT Sexual Orientation Straight 04/28/2018 9: 55 AM CDT Last Filed Vital Signs Vital Sign Reading Time Taken Comments Blood Pressure 112/63 11/08/2024 12:31 PM STARCH DUMPER Pulse 84 11/08/2024 12:31 PM STARCH DUMPER Temperature 36.3 C (97.3 F) 11/09/2024 11:21 AM STARCH DUMPER Respiratory Rate 18 11/01/2024 9:56 AM STARCH DUMPER Oxygen Saturation 99% 11/08/2024 12:31 PM STARCH DUMPER Inhaled Oxygen Concentration - - Weight 77.2 kg (170 lb 3.1 oz) 11/09/2024 11:21 AM STARCH DUMPER Height 181.6 cm (5' 11.5) 07/17/2024 7:30 AM CS T Body Mass Index 23.41 07/17/2024 7:30 AM STARCH DUMPER Plan of Treatment Health Maintenance Due Date Last Done Comments CT Colonography 1959 Cologuard 1960 HIV Screening 1960 Hepatitis C Screening 1959 COVID-19 Vaccine (#1) 1964 Pneumococcal vaccine (50+ years) (1 of 2 - PCV) 1978 Zoster Vaccines (1 of 2) 1978 RSV vaccine - (32-36 weeks) or 60+ years (1 - Risk 60-74 years 1-dose series) 2019 Colonoscopy 04/08/2020 04/08/2015, 0809/2014, 02/17/2015 Colorectal Cancer Surveillance 04/08/2020 Depression Screening (Annual PHQ-2) 09/05/2024 Fall Risk Screen (Annual) 2024 Influenza Vaccine (#1) 2025 Creatinine Level (Kidney Function Test) 04/19/2026 04/19/2025, 02/19/2025, 02/17/2025, Additional history exists Potassium Level 04/19/2026 04/19/2025, 02/03, 02/17/2025, Additional history exists Sodium Level 04/19/2026 04/19/2025, 02/03, 02/17/2025, Additional history exists Fasting Glucose for Diabetes Screening 04/19/2028 04/19/2025, 02/19/2025, 02/17/2025, Additional history exists DTaP,Tdap,and Td Vaccines (4 - Td or Tdap) 10/17/2033 10/17/2023, 10/23/2009, 10/23/2009 Abdominal Aortic Aneurysm (AAA) Screen Completed 04/19/2025, 04/19/2025, 02/17/2025, Additional history exists HPV Vaccines Aged Out No longer eligi ble based on patient's age to complete this topic IPV Vaccines Aged Out No longer eligi ble based on patient's age to complete this topic Medical Devices Implanted Type Area Bar Roller Device Identifier Shelf Expiration Date Model / Serial / Lot Hardware E.G. Pins/Screws/R ods Hardware e.g. pins/screws/ rods Neck Hardware E.G. Pins/Screws/R ods Hardware e.g. pins/screws/ rods Left: First Toe Hardware E.G. Pins/Screws/R ods Hardware e.g. 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) COLONOSCOPY Routine 04/08/2015 from Last 3 Months or Most Recently Relevant to Health Maintenance Results * (ABNORMAL) CBC with Differential, Blood (02/19/2025 3:33 PM CDT) Hemoglobin 14.3 13.2 - 16.6 g/dL 02/19/2025 3:44 PM CDT OWAT Hematocrit 42.7 38.3 - 48.6 % 02/19/2025 3:44 PM CDT OWAT Erythrocytes 4.39 4.35 - 5.65 x10(12)/L 02/19/2025 3:44 PM CDT OWAT MCV 97.3 78.2 - 97.9 fL 02/19/2025 3:44 PM CDT OWAT RBC Distrib Width 12.5 11.8 - 14.5 % 02/19/2025 3:44 PM CDT OWAT Platelet Count 192 135 - 317 x10(9)/L 02/19/2025 3:44 PM CDT OWAT Leukocytes 5.2 3.4 - 9.6 x10(9)/L 02/19/2025 3:44 PM CDT OWAT Neutrophils 3.81 1.56 - 6.45 x10(9)/L 02/19/2025 3:44 PM CDT OWAT Lymphocytes 0.80(L) 0.95 - 3.07 x10(9)/L 02/19/2025 3:44 PM CDT OWAT Monocytes 0.44 0.26 - 0.81 x10(9)/L 02/19/2025 3:44 PM CDT OWAT Eosinophils 0.17 0.03 - 0.48 x10(9)/L 02/19/2025 3:44 PM CDT OWAT Basophils <0.03 0.01 - 0.08 x10(9)/L 02/19/2025 3:44 PM CDT OWAT Blood (Blood, Venous) 02/19/2025 3:33 PM CDT 02/19/2025 3:41 PM CDT us Chester Caban M.D. LAB BLOOD ADD-ON Final Result [facility] [address] [place] [address], [facility] in [place] [address] [place] [address] * Comprehensive Metabolic Panel (02/19/2025 3:33 PM CDT) Potassium, P 4.2 3.6 - 5.2 mmol/L 02/19/2025 4:16 PM CDT OWAT Sodium, P 141 135 - 145 mmol/L 02/19/2025 4:16 PM CDT OWAT Chloride, P 105 98 - 107 mmol/L 02/19/2025 4:16 PM CDT OWAT Bicarbonate, P 28 22 - 29 mmol/L 02/19/2025 4:16 PM CDT OWAT Anion Gap, P 8 7 - 15 02/19/2025 4:16 PM CDT OWAT BUN (Blood Urea Nitrogen), P 13 8 - 24 mg/dL 02/19/2025 4:16 PM CDT OWAT Creatinine 0.90 0.74 - 1.35 mg/dL 02/19/2025 4:16 PM CDT OWAT Estimated GFR (eGFR) >90 >=60 mL/min/BS A 02/19/2025 4:16 PM CDT OWAT Comment: Estimated GFR calculated using the 2020 CKD_EPI creatinine equation. Calcium, Total, P 9.3 8.8 - 10.2 mg/dL 02/19/2025 4:16 PM CDT OWAT Glucose, P 95 70 - 140 mg/dL 02/19/2025 4:16 PM CDT OWAT Protein, Total, P 7.1 6.3 - 7.9 g/dL 02/19/2025 4:16 PM CDT OWAT Albumin, P 4.2 3.5 - 5.0 g/dL 02/19/2025 4:16 PM CDT OWAT Aspartate Aminotransferase (AST), P 20 8 - 48 U/L 02/19/2025 4:16 PM CDT OWAT Alkaline Phosphatase, P 63 40 - 129 U/L 02/19/2025 4:16 PM CDT OWAT Alanine Aminotransferase (ALT), P 12 7 - 55 U/L 02/19/2025 4:16 PM CDT OWAT Bilirubin, Total, P 0.4 0.0 - 1.2 mg/dL 02/19/2025 4:16 PM CDT OWAT Blood (Blood, Venous) 02/19/2025 3:33 PM CDT 02/19/2025 3:41 PM CDT Chester Caban M.D. LAB BLOOD ADD-ON Final Result [facility] [address] [place] [address], [facility] in [place] [address] [place] [address] * Colonoscopy (04/08/2015) EXT Colonoscopy Abnormal - See Scanned Report for Details Normal - See Scanned Report for Details, HIMS - Report Received and Scanned Comment:see care everywhere for result details Historical Provider GI PROCEDURE ORDERABLES Dina l Result from Last 3 Months or Most Recently Relevant to Health Maintenance Insurance MEDICARE Care Teams Metal Control Worker Relationship Specialty Start Date End Date None Reported, Pcp PCP - General Family Medicine 08/24/24
--- OUTSIDE RECORDS SUMMARY | 2025-05-07 08:31 | XMS_ITS | Clinical Summary ---
Author Organization [email or web address] [facility] Address [address] [place] [id number] Care Team Providers Care Show Host/Hostess Name Role Phone Nonstaff, Doctor Unavailable Unavailable Rhett Tompkins Primary Care Provider [phone] Allergies Active Allergy Reactions Criticality Noted Date Comments Naproxen GI Upset 02/18/2015 Patient reports vomiting blood Medications ibuprofen (ADVIL; MOTRIN) 600 mg tabletIndication s:TMJ syndrome Take 1 Tablet (600 mg) by mouth every 6 hours if needed for Pain. Maximum of 3200 mg in 24 hours. 30 Tablet 06/08/2023 Active famotidine (PEPCID) 20 mg tabletIndication s:Food impaction of esophagus, initial encounter Take 1 Tablet (20 mg) by mouth two times daily. 30 Tablet 10/24/2023 Active sucralfate (CARAFATE) 1 gram tabletIndication s:Food impaction of esophagus, initial encounter Take 1 Tablet (1 g) by mouth four times daily before meals and at bedtime. 60 Tablet 10/24/2023 Active magic mouthwash 1:1:1 (diphen 12.5mg/5mL-lidoc nico 2%-maalox [id number]/5ml ) (AMB MIX)Indications: Sore gums,Gum lesion Swish and spit 5-10 mL by mouth 4 times daily if needed for Mouth Sores. 240 mL 08/20/2024 Active lidocaine 4 % topical patchIndications :Back pain, unspecified back location, unspecified back pain laterality, unspecified chronicity Apply to intact skin to cover most painful area for max 12hr per 24hr period. 10 Patch 02/17/2025 Active cyclobenzaprine 10 mg tabletIndication s:Back pain, unspecified back location, unspecified back pain laterality, unspecified chronicity Take 1 Tablet (10 mg) by mouth 3 times daily if needed for Muscle Spasm. 12 Tablet 02/17/2025 Active omeprazole (PRILOSEC) 20 mg Delayed-Release capsuleIndicatio ns:Abdominal pain, unspecified abdominal location Take 1 Capsule (20 mg) by mouth once daily before a meal. 30 Capsule 04/19/2025 Active aluminum-magnesi um hydroxide-simeth icone (MAALOX PLUS) 200-200-20 mg/5 mL suspensionIndica tions:Abdominal pain, unspecified abdominal location Take 15 mL by mouth 4 times daily if needed for GI Upset. Shake Well. 355 mL 04/19/2025 Active Active Problems Problem Noted Date Diagnosed Date Sensorineural hearing loss, bilateral 08/11/2022 Chronic neck pain 06/11/2015 Overview (06/11/2015): S/P Surgery 2004. 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 Ruiz ( [place]) around ??2009?? Chronic, continued pain. Cymbalta no [...] Encounters Date Type Department Care Team Description 04/19/2025 9:26 AM CDT - 04/19/2025 11:46 AM CDT Emergency [facility] [address] [place] [address] Triston Linton MD Abdominal pain, unspecified abdominal location (Primary Dx) Discharge Disposition: Home Self Care 04/19/2025 Travel 02/21/2025 Orders Only [facility] [address] [place] [address] Rajeev Ibanez Jr., MD <No scans attached> 02/17/2025 1:10 PM CDT - 02/17/2025 6:06 PM CDT Emergency [facility] [address] [place] [address] Janice Nugent PA Abdominal pain, unspecified abdominal location (Primary Dx); Back pain, unspecified back location, unspecified back pain laterality, unspecified chronicity; Malignant neoplasm of lung, unspecified laterality, unspecified part of lung (HC); Hypertension; Spondylosis of lumbar spine Discharge Disposition: Home Self Care 02/17/2025 Travel from Last 3 Months Social History Tobacco Use Types Packs/Day Years Used Date Smoking Tobacco: Former Cigarettes Q uit: 03/2024 Smokeless Tobacco: Never Tobacco Cessation:Counseling Given: Not Answered Alcohol Use Standard Drinks/Week Comments No 0 (1 standard drink = 0.6 oz pur e alcohol) Social Connections Answer Date Recorded Do you often feel lonely or isolated from those around you? 0 04/06/2024 Financial Resource Strain Answer Date R ecorded Difficulty of Paying Living Expenses 3 10/01/2024 Difficulty of Paying Living Expenses Not on file 10/01/2024 Food Insecurity Answer Date Recorded Do you worry your food will run out before you are able to buy more? 1 04/06/2024 Transportation Needs Answer Date Record ed Does lack of transportation keep you from medica l appointments? 1 04/06/2024 Does lack of transportation keep you from work, meetings or getting things that you need? 1 04/06/2024 Housing Stability Answer Date Recorded What is your housing situation today? 1 04/06/2024 Interpersonal Safety Answer Date Record ed Are you being hit, kicked, p ushed or yelled at (see row info)? No 04/19/2025 Interpersonal Safety Abuse 12 - 18 Not on file 04/19/2025 Interpersonal Safety Ambulatory Vulnerability No t on file 04/19/2025 Utilities Answer Date Recorded Do you have trouble paying f or utilities (for example, heat, electricity, water, phone)? 1 04/06/2024 Sex and Gender Information Value Date Recorded Sex Assigned at Not on file Legal Sex Male 5:23 AM [facility] Gender Identity Not on file Sexual Orientation Not on file Obstetrics History Last Filed Vital Signs Vital Sign Reading Time Taken Comments Blood Pressure 137/91 04/19/2025 11:40 AM CDT Pulse 82 04/19/2025 9:31 AM CDT Temperature 36.4 C (97.5 F) 04/19/2025 9:31 AM CDT Respiratory Rate 18 04/19/2025 9:31 AM CDT Oxygen Saturation 97% 04/19/2025 11:40 AM CDT Inhaled Oxygen Concentration - - Weight 73.9 kg (163 lb) 04/19/2025 9:31 AM CDT Height 180.3 cm (5' 11) 04/19/2025 9:31 AM CDT Body Mass Index 22.73 04/19/2025 9:31 AM CDT Plan of Treatment Scheduled Procedures Name Priority Associated Diagnoses Date/Ti me SURGICAL PROCEDURE (TYPE PRO CEDURE DESCRIPTION BELOW) Elective Nasal septal deviation Nasal turbinate hypertrophy Nasal congestion Health Maintenance Due Date Last Done Comments COVID-19 vaccine series (#1) 1964 Tetanus booster 1970 Depression screening for age 12+ 1971 HIV for age 15-65 1974 BMI (ht and wt on same day) for age 18+ 1977 Hepatitis C screening for age 18-79 1977 Pneumococcal series for age 50+ (1 of 2 - PCV) 1978 Zoster (shingles) series for age 50+ (1 of 2) 1978 Lipids for age 45-75 2004 Colonoscopy through age 75 04/08/2020 04/08/2015 Medicare Wellness for age 65+ 2024 Influenza Vaccine (#1) 2025 RSV vaccine for adults or (1 - 1-dose 75+ series) 2034 AAA screening age 65-74 Completed 04/19/20 25, 02/17/2025, 01/24/2025, Additional history exists Hepatitis B series for 19+ Aged Out N o longer eligible based on patient's age to complete this topic Medical Devices Implanted Type Area Electrical Intern Device Identifier Shelf Expiration Date Model / Serial / Lot Mesh Ventral 3x6in Bard Soft - [id number] Implanted:Qty: 2 on 12/14/2017 by Victorino Sanders MD at [facility] Bilateral: Inguinal [employer] 09/01/2022 [id number] / / [id number] Description:BARD Soft Mesh, Bilateral Inguinal Procedures Procedure Name Priority Date/Time Associated Diagnosis Comments CT ABDOMEN PELVIS W STAT 04/19/2025 1 0:48 AM CDT HEPATIC FUNCTION PANEL STAT 9:49 AM CDT LIPASE STAT 04/19/2025 9:49 AM CDT BASIC METABOLIC PANEL STAT 04/19/2025 9:49 AM CDT CBC W PLT NO DIFF STAT 04/19/2025 9: [address] LUMBAR SPINE 2D RECONSTRUCTION STAT 02/17/2025 3:[address] ABDOMEN PELVIS W STAT 02/17/2025 3 :29 PM CDT URINE CULTURE DEBO 02/17/2025 3:00 PM CDT URINALYSIS MICROSCOPIC STAT 3:00 PM CDT UA W/ SEDIMENT EXAM REFLEXED PER CRITERIA STAT 02/17/2025 3:00 PM CDT CBC WITH AUTO DIFFERENTIAL STAT 02/17/2025 2:55 PM CDT LACTATE VENOUS Today 02/17/2025 2:55 PM CDT LIPASE STAT 02/17/2025 2:55 PM CDT HEPATIC FUNCTION PANEL STAT 2:55 PM CDT BASIC METABOLIC PANEL STAT 02/17/2025 2:55 PM CDT CBC WITH AUTO DIFFERENTIAL STAT 02/17/2025 2:55 PM CDT from Last 3 Months Results * CT ABDOMEN PELVIS W (04/19/2025 10:48 AM CDT) Only the most recent of2 resultswithin the time period is included. Anatomical Region Laterality Modality Abdomen, Pelvis, AORTA, LIVER, SPLEEN Computed Tomography 04/19/2025 11:3 1 AM CDT Impressions 04/19/2025 11:31 AM CDT No acute abdominal or pelvic pathology. Please note that all CT scans at this facility use dose modulation, iterative reconstruction, and/or weight-based dosing when appropriate to reduce radiation dose to as low as reasonably achievable. Dictated by Jhoan Garcia MD @ 04/19/2025 11:31:36 AM (Electronically Signed) Narrative 04/19/2025 11:31 AM CDT For Patients: As a result of the Cures Act, medical imaging exams and procedure reports are released immediately into your electronic medical record. You may view this report before your referring provider. If you have questions, please contact your health care provider. INDICATION: Constipation for 3 weeks with severe abdominal pain. TECHNIQUE: CT abdomen and pelvis acquired with 100 cc Omnipaque 300 IV contrast. COMPARISON: CT abdomen and pelvis with contrast February 17, 2025. FINDINGS: Lower chest: Extensive emphysematous changes. Liver: Small cyst within the left lobe of the liver. Gallbladder and bile ducts: Unremarkable Pancreas: Unremarkable Spleen: Unremarkable. Adrenal glands: Mild left adrenal gland thickening. Kidneys: Unremarkable. No stones or hydronephrosis. GI tract: Unremarkable. Appendix not visualized. Vasculature: Abdominal aortic atherosclerosis. Lymph nodes: No lymphadenopathy. Peritoneum/Abdominal Wall: Unremarkable. No sign of mass or infiltration. No free air or significant free fluid. Pelvis: Unremarkable. Bones: Small sclerotic focus seen in the left 12th rib. No acute osseous abnormality. Procedure Note Jhoan Garcia, DO - 04/19/2025 For Patients: As a result of the Cures Act, medical imagingexams and procedure reports are released immediately into your electronicmedical record. You may view this report before your referring provider.If you have questions, please contact your health care provider. INDICATION: Constipation for 3 weeks with severe abdominal pain. TECHNIQUE: CT abdomen and pelvis acquired with 100 cc Omnipaque 300 IV contrast. COMPARISON: CT abdomen and pelvis with contrast February 17, 2025. FINDINGS: Lower chest: Extensive emphysematous changes. Liver: Small cyst within the left lobe of the liver. Gallbladder and bile ducts: Unremarkable Pancreas: Unremarkable Spleen: Unremarkable. Adrenal glands: Mild left adrenal gland thickening. Kidneys: Unremarkable. No stones or hydronephrosis. GI tract: Unremarkable. Appendix not visualized. Vasculature: Abdominal aortic atherosclerosis. Lymph nodes: No lymphadenopathy. Peritoneum/Abdominal Wall: Unremarkable. No sign of mass or infiltration.No free air or significant free fluid. Pelvis: Unremarkable. Bones: Small sclerotic focus seen in the left 12th rib. No acute osseousabnormality. IMPRESSION: No acute abdominal or pelvic pathology. Please note that all CT scans at this facility use dose modulation,iterative reconstruction, and/or weight-based dosing when appropriate toreduce radiation dose to as low as reasonably achievable. Dictated by Jhoan Garcia MD @ 04/19/2025 11:31:36 AM (Electronically Signed) Triston Linton MD CT Final R esult * CBC W PLT NO DIFF (04/19/2025 9:49 AM CDT) WHITE BLOOD COUNT 6.1 4.5 - 11.0 thou/cu mm 04/19/2025 9:58 AM [facility] RED BLOOD COUNT 4.74 4.30 - 5.90 mil/cu mm 04/19/2025 9:58 AM [facility] HEMOGLOBIN 15.0 13.5 - 17.5 g/dL 04/19/2025 9:58 AM [facility] HEMATOCRIT 43.9 37.0 - 53.0 % 04/19/2025 9:58 AM [facility] MCV 93 80 - 100 fL 04/19/2025 9:58 AM [facility] MCH 31.6 26.0 - 34.0 pg 04/19/2025 9:58 AM [facility] MCHC 34.2 32.0 - 36.0 g/dL 04/19/2025 9:58 AM [facility] RDW 13.4 11.5 - 15.5 % 04/19/2025 9:58 AM [facility] PLATELET COUNT 185 140 - 440 thou/cu mm 04/19/2025 9:58 AM CDT [facility] MPV 10.5 6.5 - 11.0 fL 04/19/2025 9:58 AM CDT [facility] Blood BLOOD SPECIMEN / Unknown IV Start / Unknown 04/19/2025 9:49 AM CDT 04/19/2025 9:52 AM CDT Triston Linton MD HEMATOLOGY Final R esult Performing Organization Address City/[facility]/ZIP Co de Phone Number [facility] [address] [place] [address] * LIPASE (04/19/2025 9:49 AM CDT) Only the most recent of2 resultswithin the time period is included. LIPASE 30.1 13.0 - 60.0 IU/L 04/19/2025 10:13 AM T [facility] Blood BLOOD SPECIMEN / Unknown IV Start / Unknown 04/19/2025 9:49 AM CDT 04/19/2025 9:52 AM CDT Triston Linton MD CHEMISTRY Final R esult Performing Organization Address City/[facility] Co de Phone Number [facility] [address] [place] [address] * HEPATIC FUNCTION PANEL (04/19/2025 9:49 AM CDT) Only the most recent of2 resultswithin the time period is included. ALBUMIN 4.5 4.0 - 4.9 g/dL 04/19/2025 10:13 AM CDT [facility] PROTEIN,TOTAL 7.3 6.0 - 8.0 g/dL 04/19/2025 10:13 AM CDT [facility] BILIRUBIN,TOTAL 0.5 0.0 - 1.2 mg/dL 04/19/2025 10:13 AM T [facility] BILIRUBIN,DIRECT 0.2 0.0 - 0.2 mg/dL 04/19/2025 10:13 AM [facility] BILIRUBIN,INDIRE CT 0.3 0.2 - 0.8 mg/dL 04/19/2025 10:13 AM [facility] ALK PHOSPHATASE 61 40 - 129 IU/L 04/19/2025 10:13 AM [facility] ALT (SGPT) 16 10 - 50 IU/L 04/19/2025 10:13 AM [facility] AST (SGOT) 20 10 - 50 IU/L 04/19/2025 10:13 AM [facility] Blood BLOOD SPECIMEN / Unknown IV Start / Unknown 04/19/2025 9:49 AM CDT 04/19/2025 9:52 AM CDT Triston Linton MD CHEMISTRY Final R esult [facility] [address] [place] [address] * (ABNORMAL) BASIC METABOLIC PANEL (04/19/2025 9:49 AM CDT) Only the most recent of2 resultswithin the time period is included. SODIUM 140 136 - 145 mmol/L 04/19/2025 10:13 AM [facility] POTASSIUM 4.1 3.5 - 5.1 mmol/L 04/19/2025 10:13 AM [facility] CHLORIDE 104 98 - 107 mmol/L 04/19/2025 10:13 AM [facility] CO2,TOTAL 25 22 - 29 mmol/L 04/19/2025 10:13 AM [facility] ANION GAP 11 5 - 18 04/19/2025 10:13 AM [facility] GLUCOSE 125(H) 70 - 99 mg/dL 04/19/2025 10:13 AM [facility] CALCIUM 9.4 8.8 - 10.4 mg/dL 04/19/2025 10:13 AM [facility] Comment: Reference ranges for this test were updated on 07/10/2024 to reflect our healthy population more accurately. Reference range changes are not retroactively applied to results, but previous results using the same methodology can be interpreted in the context of the new reference range. BUN 12 8 - 23 mg/dL 04/19/2025 10:13 AM CDT [facility] CREATININE 0.85 0.70 - 1.20 mg/dL 04/19/2025 10:13 AM T [facility] BUN/CREAT RATIO 14 10 - 20 10:13 AM CDT [facility] eGFR >90 >90 mL/min/1. 73m2 04/19/2025 10:13 AM [facility] Comment:As of 2021, eG FR is calculated by the CKD-EPI creatinine equation without race adjustment. eGFR can be influenced by muscle mass, exercise, and diet. The reported eGFR is an estimation only and is only applicable if the renal function is stable. Blood BLOOD SPECIMEN / Unknown IV Start / Unknown 04/19/2025 9:49 AM CDT 04/19/2025 9:52 AM CDT Triston Linton MD CHEMISTRY Final R esult [facility] [address] [place] [address] * CT 2D RECONSTRUCTION LUMBAR SPINE (02/17/2025 3:40 PM CDT) Anatomical Region Laterality Modality PATELLA, Spine Computed Tomogra phy 02/17/2025 3:46 PM CDT Narrative 02/17/2025 3:46 PM CDT For Patients: As a result of the Century Cures Act, medical imaging exams and procedure reports are released immediately into your electronic medical record. You may view this report before your referring provider. If you have questions, please contact your health care provider. Indication: Low back pain. Technique: CT images of the lumbar spine reconstructed from the abdomen and pelvis. Comparison: CT abdomen pelvis 06/08/2024, MRI lumbar spine 02/25/2015. Findings: [id number] leftward lumbar curvature. Lumbar lordosis is preserved. Vertebral body heights are maintained. No acute fracture. Severe multilevel disc loss. Multilevel posterior disc bulging, facet arthropathy, and endplate spondylitic ridging contributing up to moderately severe spinal canal stenosis at L3-4 as well as moderately severe neural foraminal stenosis on the left at L5-S1. Impression: 1. No acute fracture. 2. Moderate to advanced multilevel lumbar spondylosis, including moderately severe spinal canal stenosis at L3-4. Please note that all CT scans at this facility use dose modulation, iterative reconstruction, and/or weight-based dosing when appropriate to reduce radiation dose to as low as reasonably achievable. Dictated by Heránn Donaldson MD @ 02/17/2025 3:46:10 PM (Electronically Signed) Procedure Note Hernán Donaldson MD - 02/17/2025 For Patients: As a result of the Cures Act, medical imagingexams and procedure reports are released immediately into your electronicmedical record. You may view this report before your referring provider.If you have questions, please contact your health care provider. Indication: Low back pain. Technique: CT images of the lumbar spine reconstructed from the abdomen and pelvis. Comparison: CT abdomen pelvis 06/08/2024, MRI lumbar spine 02/25/2015. Findings: Figh-[id number] leftward lumbar curvature. Lumbar lordosis is preserved.Vertebral body heights are maintained. No acute fracture. Severe multilevel disc loss. Multilevel posterior disc bulging, facetarthropathy, and endplate spondylitic ridging contributing up tomoderately severe spinal canal stenosis at L3-4 as well as moderatelysevere neural foraminal stenosis on the left at L5-S1. Impression: 1. No acute fracture. 2. Moderate to advanced multilevel lumbar spondylosis, includingmoderately severe spinal canal stenosis at L3-4. Please note that all CT scans at this facility use dose modulation,iterative reconstruction, and/or weight-based dosing when appropriate toreduce radiation dose to as low as reasonably achievable. Dictated by Hernán Donaldson MD @ 02/17/2025 3:46:10 PM (Electronically Signed) Janice BARAHONA CT Final R esult * URINALYSIS MICROSCOPIC (02/17/2025 3:00 PM CDT) RBC 0-2 0-2, None Seen /HPF 02/17/2025 3:17 PM CDT [facility] WBC 0-2 0-2, 3-5, None Seen /HPF 02/17/2025 3:17 PM CDT [facility] BACTERIA Few None Seen, Rare, Few Bacteria/H PF 02/17/2025 3:17 PM CDT [facility] EPITHELIAL CELLS Few None Seen, Few Epi/HPF 02/17/2025 3:17 PM CDT [facility] Mucus Present 02/17/2025 3:17 PM CDT [facility] Urine URINE SPECIMEN / Unknown Non-Blood / Unknown 02/17/2025 3:00 PM CDT 02/17/2025 3:03 PM CDT us Janice BARAHONA URINE Final R esult [facility] [address] [place] [id number] * URINE CULTURE (02/17/2025 3:00 PM CDT) CULTURE <10,000 CFU/mL multiple organisms 02/18/2025 2:03 PM CDT [facility] Urine URINE SPECIMEN / Unknown Non-Blood / Unknown 02/17/2025 3:00 PM CDT 02/17/2025 3:03 PM CDT us Janice BARAHONA MICROBIOLOGY Final R esult [facility] [address] [place] [address], [place] * (ABNORMAL) UA W/ SEDIMENT EXAM REFLEXED PER CRITERIA (02/17/2025 3:00 PM CDT) COLOR Yellow Yellow Color 02/17/2025 3:09 PM [facility] CLARITY Clear Clear Clarity 02/17/2025 3:09 PM [facility] SPECIFIC GRAVITY,URINE 1.020 1.010, 1.015, 1.020, 1.025 02/17/2025 3:09 PM [facility] PH,URINE 6.0 6.0, 7.0, 8.0, 5.5, 6.5, 7.5, 8.5 02/17/2025 3:09 PM [facility] UROBILINOGEN, QUALITATIVE Normal Normal EU/dl 02/17/2025 3:09 PM [facility] PROTEIN, URINE Negative Negative mg/dL 02/17/2025 3:09 PM [facility] GLUCOSE, URINE Negative Negative mg/dL 02/17/2025 3:09 PM [facility] KETONES,URINE Negative Negative mg/dL 02/17/2025 3:09 PM [facility] BILIRUBIN,URI NE Negative Negative 02/17/2025 3:09 PM [facility] OCCULT BLOOD,URINE Trace(A) Negative 02/17/2025 3:09 PM [facility] NITRITE Negative Negative 02/17/2025 3:09 PM [facility] LEUKOCYTE ESTERASE Trace(A) Negative 02/17/2025 3:09 PM [facility] Urine URINE SPECIMEN / Unknown Non-Blood / Unknown 02/17/2025 3:00 PM CDT 02/17/2025 3:03 PM CDT us Janice Nugent PA URINE Final R esult [facility] [address] [place], [place] [id number] * (ABNORMAL) CBC WITH AUTO DIFFERENTIAL (02/17/2025 2:55 PM CDT) WHITE BLOOD COUNT 5.5 4.5 - 11.0 thou/cu mm 02/17/2025 3:06 PM [facility] RED BLOOD COUNT 4.62 4.30 - 5.90 mil/cu mm 02/17/2025 3:06 PM [facility] HEMOGLOBIN 15.2 13.5 - 17.5 g/dL 02/17/2025 3:06 PM [facility] HEMATOCRIT 44.7 37.0 - 53.0 % 02/17/2025 3:06 PM [facility] MCV 97 80 - 100 fL 02/17/2025 3:06 PM [facility] MCH 32.9 26.0 - 34.0 pg 02/17/2025 3:06 PM [facility] MCHC 34.0 32.0 - 36.0 g/dL 02/17/2025 3:06 PM [facility] RDW 12.6 11.5 - 15.5 % 02/17/2025 3:06 PM [facility] PLATELET COUNT 185 140 - 440 thou/cu mm 02/17/2025 3:06 PM [facility] MPV 10.5 6.5 - 11.0 fL 02/17/2025 3:06 PM [facility] % NEUT 77.2 % 02/17/2025 3:06 PM [facility] % LYMPH 13.4 % 02/17/2025 3:06 PM [facility] % MONO 6.6 % 02/17/2025 3:06 PM [facility] % EOS 2.4 % 02/17/2025 3:06 PM [facility] % BASO 0.4 % 02/17/2025 3:06 PM [facility] ABSOLUTE NEUTROPHILS 4.2 1.7 - 7.0 thou/cu mm 02/17/2025 3:06 PM [facility] ABSOLUTE LYMPHOCYTES 0.7(L) 0.9 - 2.9 thou/cu mm 02/17/2025 3:06 PM [facility] ABSOLUTE MONOCYTES 0.4 <0.9 thou/cu mm 02/17/2025 3:06 PM CDT [facility] ABSOLUTE EOSINOPHILS 0.1 <0.5 thou/cu mm 02/17/2025 3:06 PM CDT [facility] ABSOLUTE BASOPHILS 0.0 <0.3 thou/cu mm 02/17/2025 3:06 PM CDT [facility] Blood BLOOD SPECIMEN / Unknown IV Start / Unknown 02/17/2025 2:55 PM CDT 02/17/2025 3:02 PM CDT us Janice BARAHONA HEMATOLOGY Final R esult [facility] [address] [place], [place] [id number] * LACTATE VENOUS (02/17/2025 2:55 PM CDT) LACTATE,VENOUS 0.8 0.5 - 2.0 mmol/L 02/17/2025 3:24 PM CDT [facility] Blood BLOOD SPECIMEN / Unknown IV Start / Unknown 02/17/2025 2:55 PM CDT 02/17/2025 3:02 PM CDT us Janice BARAHONA CHEMISTRY Final R esult [facility] [address] [place], [place] [phone] from Last 3 Months Insurance [facility] MEDICARE PART B HB ONLY MEDICARE PART A HB ONLY MEDICARE [place] [phone] [place] [address] WORKERS COMP [facility] [employer] WORKERS COMP SHADI NÚÑEZ [id number] Advance Directives * Full Code (Latest Code Status on File) Date Activated Date Inactivated Comments 10/27/2023 12:31 PM 10/27/2023 7:12 PM Question Answer Comments Code Status Discussion: Reviewed Preferences * Full Code Date Activated Date Inactivated Comments 12/14/2017 7:02 AM 12/14/2017 3:36 PM Care Teams Show Host/Hostess Relationship Specialty Start Date End Date Rhett Tompkins PA [address] [place] [phone] PCP - General Physician Travel Guide 06/08/23 Nonstaff, Doctor NON STAFF DOCTOR 12/19/13
--- OUTSIDE RECORDS SUMMARY | 2025-05-07 08:31 | XMS_ITS | Clinical Summary ---
Author Organization [facility] er Address [address] [place] [address] Care Team Providers Care Developmental Writing Instructor Name Role Phone Shay Cohen DNP, LEARNING TECHNOLOGIST, ANALYSIS EVALUATOR Primary Care Provi ramiro Allergies Active Allergy Reactions Criticality Noted Date Comments Naproxen GI intolerance 02/18/2015 Patient reports vomiting blood Medications ibuprofen (ADVIL) 600 MG tablet Take 1 tablet (600 mg total) by mouth every 6 hours as needed 3 Active acetaminophen (TYLENOL) 325 MG tablet Take by mouth every 6 (six) hours if needed for mild pain Active azelastine (ASTELIN) 0.1 % nasal sprayIndication s:Nose septum deviation Administer 2 sprays into each nostril 2 (two) times a day Use in each nostril as directed 30 mL 1 4 Active fluticasone (FLONASE) 50 MCG/ACT nasal sprayIndication s:Nose septum deviation Administer 1 spray into each nostril 2 (two) times a day 16 g 1 4 Active Additional Information Patient not taking.Reported on 04/02/2024 Active Problems Problem Noted Date Diagnosed Date Nose septum deviation 04/02/2024 Assessment & Plan (04/02/2024 2:25 PM CDT): Nasal septum deviation to the right. Exam [...] rinses. We also discussed consistent use of jyvs-qar-[id number] medications in the meantime. Immunizations Immunization Administration Dates Next Due Tdap 10/17/2023,10/23/2009 Family [...] re latives? Once a week 02/06/2024 Attends Holiness Services Not on file 02/05 Do you belong to any clubs o r organizations such as jehovah's witness groups, unions, fraternal or athletic groups, or [...] Date Recorded PHQ-9 Total Score 0 02/06/2024 [facility] Occupat ional [facility] - Occupational Stress [...] any time in the past 12 m [facility], were you homeless or living in a long-term (including now)? No 02/06/2024 Sex and Gender Information Value Date Recorded Sex Assigned at Not on file Legal Sex Male 8:48 PM CDT Gender Identity Not on file Sexual Orientation Not on file Last Filed Vital Signs Vital Sign Reading Time Taken Comments Blood Pressure 143/100 04/02/2024 11:02 AM CDT Pulse 82 04/02/2024 11:02 AM CDT Temperature 36.5 C (97.7 F) 04/02/2024 11:02 AM CDT Respiratory Rate 16 04/02/2024 11:02 AM CDT [...] 1959 FIT-DNA 1959 Sigmoidoscopy 1959 iFOBT 1959 COVID-19 Vaccine (#1) 1964 Medicare Annual Wellness Vis it (AWV) 1977 Pneumococcal Vaccine: 50+ Years (1 of 2 - PCV) 1978 Zoster Vaccines (1 of 2) 1978 Fall Risk Performed 02/05/2025 02/06/2024 Colonoscopy 04/08/2025 04/08/2015 Colorectal Cancer Screening 04/08/2025 Influenza Vaccine (#1) 2025 DTaP,Tdap,and Td Vaccines (3 - Td or Tdap) 10/17/2033 10/17/2023, 10/23/2009 HPV Vaccines Aged Out No longer eligi ble based on patient's age to complete this topic Medical Devices Implanted Type Area Railway Signalling Engineer Device Identifier Shelf Expiration Date Model / Serial / Lot 4.0mm Headed Screw Length 18mm Implanted:Qty: 1 on 10/30/2021 by Yanick Hutchinson DPM at [facility] Screw Left: Foot [id number] / / Insurance MEDICARE [facility] Care Teams Developmental Writing Instructor Relationship Specialty Start Date End Date Shay Cohen, DNP, LEARNING TECHNOLOGIST, ANALYSIS EVALUATOR [address] [place] [id number] [facility] - General 11/19/24
[2025-05-07 08:32] LABS: Hematocrit 46.3 % (37.0-53.0); Hemoglobin* 15.3 gm/dL (13.5-17.5); Immature Granulocytes Abs Auto 0.02 K/uL (0.00-0.30); Immature Granulocytes Pct Auto 0.3 %; Mean Corpuscular HGB Conc 33 gm/dL (32-36); Mean Corpuscular Hemoglobin 31 pg (26-34); Mean Corpuscular Volume 95 fL (80-100); RDW Coefficient of Variation % 13.4 % (11.5-15.5); Red Blood Count 4.88 m/uL (4.30-5.90); White Blood Count* 6.01 K/uL (4.50-11.00)
--- OUTSIDE RECORDS SUMMARY | 2025-05-07 08:32 | XMS_ITS ---
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 Ruiz ( [place]) around ??2009?? Chronic, continued pain. Cymbalta no [...] Without Myelopathy 09/26/19 08 Neuropathy Peripheral 12/01/2006 Current Treatment and Therapy Plans No current plan information found. Past Treatment and Therapy Plans Hematology / Oncology Treatment 1 Plan Name Start Date Discontinue Date Treatment Medications Discontinue Reason Plan Provider Cycles CARBOplatin AUC 2 Weekly / PACLitaxel 50 mg/m2 ( with Radiation ) ( Lung ) 4 11/12/2024 CARBOplatin (Paraplatin)CA RBOplatin (Paraplatin) IVPB (BY AUC) in 250 mL (Paraplatin)PA CLitaxel (TaxoL)PACLIta xeL (TaxoL) IVPB in 250 mL (TaxoL) Therapy Complete Randell Cuenca PNerisASantosh 1 of 1 cycle started Past Radiation Episodes * IMRT: Left LungOverview* First Treatment Date Last Treatment Date Treatment Site Technique Goal Episode Provider 08/13/2024 11/14/2024 Left Lung IMRT Curative * Linked Problems Malignant Neoplasm Of Lung U pper Lobe Or Bronchus Left Treatment Courses* Course [id number] 08/13/2024 - 11/14/2024 Treatment Period Fraction Dose Fractions Total Dose Plans Planned [id number] 10/08/2024 - 11/14/2024 300 cGy 4,500 cGy [id number] 08/13/2024 - 08/21/2024 200 cGy 6,000 cGy Reference Points Delivered [id number] 10/08/2024 - 11/14/2024 4,500 cGy [id number] 08/13/2024 - 08/21/2024 1,200 cGy Lifetime Dose Tracking * Chemical Lifetime Dose Automatic Entry Manual Entr y Radiation 66 mGy 66 mGy 0 mGy Fluoro Time 3.02 minutes 3.02 minutes 0 minutes
--- OUTSIDE RECORDS SUMMARY | 2025-05-07 08:32 | XMS_ITS | Encounter Summary ---
Author Organization [facility] er Address [address] [place] [address] Care Team Providers Care Video Presentation Operator Name Role Phone Shay Cohen DNP, RESEARCH ADMINISTRATOR, DIET KITCHEN COOK Primary Care Provi ramiro Reason for Visit * Reason Comments Med Refill Encounter Details Date Type Department Care Team (Late st Contact Info) Description 02/15/2024 Refill [place] [address] [place] [address] Shay Cohen DNP, RESEARCH ADMINISTRATOR, DIET KITCHEN COOK [address] [place] [id number] Nose septum deviation Social History Tobacco Use [...] re latives? Once a week 02/06/2024 Attends Ca[employer] Services Not on file 02/05 Do you belong to any clubs o r organizations such as restorationism groups, unions, fraternal or athletic groups, or [...] 0 02/06/2024 [facility] - [...] any time in the past 12 m [facility], were you homeless or living in a jail (including now)? No 02/06/2024 Sex and Gender [...] Last visit requested medication was discussed: 02/06/24, nehemias sheridan. Last Rx: Requesting 90 day supply azelastine [...] septum documented in this encounter Care Teams Video Presentation Operator Relationship Specialty Start Date End Date Shay Cohen, ÁNGEL, RESEARCH ADMINISTRATOR, DIET KITCHEN COOK [address] [place] [id number] PCP - General 11/19/24 documented as of this encounter
[2025-05-07 08:40] LABS: Lymphocytes Absolute Auto 0.90 K/uL (0.90-2.90); Slide Review Reflex No
[2025-05-07 08:42] LABS: Albumin* 4.6 g/dL (3.3-5.0); Chloride* 103 mmol/L (96-114)
[2025-05-07 08:43] LABS: Potassium* 4.3 mmol/L (3.6-5.1); Sodium* 138 mmol/L (135-149)
[2025-05-07 08:45] LABS: Blood Urea Nitrogen* 15 mg/dL (7-30); Creatinine* 0.9 mg/dL (0.5-1.5); Estimated Glomerular Filt Rate 95 ml/min
[2025-05-07 08:46] LABS: Alanine Aminotransferase* 17 U/L (4-50); Alkaline Phosphatase* 63 U/L (40-150); Anion Gap 7 mEq/L (7-15); Aspartate Amino Transferase* 25 U/L (12-35); Bilirubin Direct* 0.3 mg/dL (0.0-0.5); Bilirubin Total* 0.8 mg/dL (0.1-1.5); Calcium* 9.8 mg/dL (8.4-10.6); Carbon Dioxide* 28 mmol/L (20-32); Glucose* 117 mg/dL (60-115); Total Protein* 7.8 g/dL (6.0-8.3)
[2025-05-07 08:59] LABS: Acetaminophen* < 10.0 ug/mL (10.0-30.0); Ethanol* < 0.01 % (0.01-0.03); NT Pro B Type NatriureticPept* < 20 pg/mL (See Note); Salicylate* < 1.0 mg/dL (1.0-10)
[2025-05-07 09:34] LABS: Appearance Urine Clear (Clear)
[2025-05-07 09:41] LABS: Cannabinoid Screen Urine Negative (Negative); Methamphetamines Screen Urine Negative (Negative); Tricyclic Antidepressant Urine Negative (Negative)
[2025-05-07 10:14] VITALS: BP 122/88; PULSE 89; RESP 16; O2SAT 94
== END 2025-05-07 10:15 | disposition home or self-care (01) ==
PROVIDERS: Emergency Provider Family Medicine; PCP Nurse Practitioner Family
DX: R10.9 Unspecified abdominal pain (principal); G89.29 Other chronic pain
CPT/HCPCS: 36415; 80048; 80076; 80143; 80179; 80306; 81001; 82077; 83605; 83690; 83735; 83880; 85025; 86140; 87086; 99283; 99284

== ENCOUNTER 2025-07-18 13:26 | Outpatient (CLI) | payer MEDICARE, SELFPAY | END 2025-07-18 13:27 | disposition home or self-care (01) | PROVIDERS: PCP Nurse Practitioner Family; Visit Provider Nurse Practitioner Family | DX: M79.18 Myalgia, other site (principal); M25.50 Pain in unspecified joint; G62.9 Polyneuropathy, unspecified; K59.00 Constipation, unspecified; Z13.0 Encounter for screening for diseases of the blood and blood-forming organs and certain disorders involving the immune mechanism; Z11.8 Encounter for screening for other infectious and parasitic diseases | CPT/HCPCS: 80053; 82607; 84443; 84550; 85025; 85651; 86038; 86140; 86200; 86431; 86618 ==